=== PATIENT | female | born 1965 | race African-American/Black ===

== ENCOUNTER 2016-03-16 13:26 | Emergency (ER) | payer MEDICARE ==
[2016-03-16 13:52] VITALS: BP 139/77
[2016-03-16] MEDS ORDERED: HYDROCODONE/ACETAMINOPHEN 5-325 MG TABLET PO ONE (14:04)
--- NOTE | 2016-03-16 14:07 | ER Document Report ---
ED Medical Screen (RME) - General Chief Complaint: Fall Stated Complaint: FALL BODY PAIN Mode of Arrival: Ambulatory Information source: Patient Notes: 51-year-old female presents to the emergency department c/o right Knee Pain Status Post Mechanical Fall. Patient reports was stepping out of her Tub Yesterday Evening When She Slipped on the Rug and Fell. Denies loc, vision changes, or paresthesias. I have greeted and performed a rapid initial assessment of this patient. A comprehensive ED assessment and evaluation of the patient, analysis of test results and completion of the medical decision making process will be conducted by additional ED providers. TRAVEL OUTSIDE OF THE [place] IN LAST 30 DAYS: No - Related Data Allergies/Adverse Reactions: No Known Allergies Allergy (Verified 12/30/15 05:30) Past Medical History - Social History Frequency of alcohol use: None Drug Abuse: None - Past Medical History Cardiac Medical History: Reports: Hx Hypertension Pulmonary Medical History: Reports: Hx Asthma Neurological Medical History: Reports: Hx Migraine Renal/ Medical History: Denies: Hx Peritoneal Dialysis Musculoskeltal Medical History: Reports Hx Arthritis, Reports Hx Muscle Weakness , Reports Hx Musculoskeletal Deformity - ddd, Reports Hx Musculoskeletal Trauma Psychiatric Medical History: Reports: Hx Depression Past Surgical History: Reports: Hx Hysterectomy, Hx Oral Surgery, Hx Orthopedic Surgery - Back 2006, [place] Knee,3 neck surgeries - Immunizations Immunizations up to date: No Hx Diphtheria, Pertussis, Tetanus Vaccination: No - 1999 Physical Exam - Vital signs Vitals: Temp Pulse Resp BP Pulse Ox 98.6 F 107 H 22 H 139/77 H 98 03/16/16 13:51 03/16/16 13:51 03/16/16 13:51 03/16/16 13:51 03/16/16 13:51 - General General appearance: Appears well, Alert In distress: None Course - Vital Signs Vital signs: Temp Pulse Resp BP Pulse Ox 98.6 F 107 H 22 H 139/77 H 98 03/16/16 13:51 03/16/16 13:51 03/16/16 13:51 03/16/16 13:51 03/16/16 13:51
--- NOTE | 2016-03-16 15:33 | ER Document Report ---
ED Fall - General Chief Complaint: Fall Stated Complaint: FALL BODY PAIN Time seen by provider: 15:28 Mode of Arrival: Ambulatory Information source: Patient Notes: 51-year-old female presents to ED for pain in her right knee shoulder hand and back since she fell twice yesterday. She states she slipped down several stairs hurting her back and then when getting out of the tub she slipped and hit landed on her right arm and hand and knee. At this time she only complains of pain in her right shoulder and right knee. Denies pain in her back at this time. She has a history of back surgery bilateral knee surgery and 3 neck surgeries. TRAVEL OUTSIDE OF THE [place] IN LAST 30 DAYS: No - HPI Occurred: Yesterday Where: Home, Indoors Context: Slipped Associated symptoms: None Location of injury/pain: Knee - Right knee, Shoulder - Right shoulder Quality of pain: Sharp, Throbbing Severity: Moderate Pain Level: 4 - Related data Allergies/Adverse Reactions: No Known Allergies Allergy (Verified 12/30/15 05:30) Past Medical History - General Information source: Patient - Social History Smoking Status: Never Smoker Frequency of alcohol use: None Drug Abuse: None Occupation: disabled Lives with: Alone Family History: Arthritis, CAD, CVA, DM, Hyperlipidemia, Hypertension, Malignancy, Thyroid Disfunction Patient has suicidal ideation: No Patient has homicidal ideation: No - Past Medical History Cardiac Medical History: Reports: Hx Hypertension Pulmonary Medical History: Reports: Hx Asthma EENT Medical History: Reports: None Neurological Medical History: Reports: Hx Migraine Endocrine Medical History: Reports: Hx Hypothyroidism Renal/ Medical History: Reports: None Malignancy Medical History: Reports: None GI Medical History: Reports: None Musculoskeltal Medical History: Reports Hx Arthritis, Reports Hx Muscle Weakness , Reports Hx Musculoskeletal Deformity - ddd multiple back and neck surgeries, Reports Hx Musculoskeletal Trauma - Fractured bilateral clavicle as a child Skin Medical History: Reports None Psychiatric Medical History: Reports: Hx Depression Traumatic Medical History: Reports: Hx Fractures - Bilateral clavicle Infectious Medical History: Reports: None Past Surgical History: Reports: Hx Hysterectomy, Hx Oral Surgery - [place] teeth , Hx Orthopedic Surgery - Back 2006, [place] Knee,3 neck surgeries - Immunizations Immunizations up to date: No Hx Diphtheria, Pertussis, Tetanus Vaccination: No - 1999 Review of Systems - Review of Systems Constitutional: No symptoms reported EENT: No symptoms reported Cardiovascular: No symptoms reported Respiratory: No symptoms reported Gastrointestinal: No symptoms reported Genitourinary: No symptoms reported Female Genitourinary: No symptoms reported Musculoskeletal: Joint pain, Muscle pain, Other - Right shoulder and knee pain. denies: Back pain - States no longer has back pain Skin: No symptoms reported Hematologic/Lymphatic: No symptoms reported Neurological/Psychological: No symptoms reported -: Yes All other systems reviewed and negative Physical Exam - Vital signs Vitals: Temp Pulse Resp BP Pulse Ox 98.6 F 107 H 22 H 139/77 H 98 03/16/16 13:51 03/16/16 13:51 03/16/16 13:51 03/16/16 13:51 03/16/16 13:51 Interpretation: Normal - General General appearance: Appears well, Alert - HEENT Head: Normocephalic, Atraumatic Eyes: Normal Pupils: PERRL - Respiratory Respiratory status: No respiratory distress Chest status: Nontender Breath sounds: Normal Chest palpation: Normal - Cardiovascular Rhythm: Regular Heart sounds: Normal auscultation Murmur: No - Abdominal Inspection: Normal Distension: No distension Bowel sounds: Normal Tenderness: Nontender Organomegaly: No organomegaly - Back Back: Normal, Nontender, Scars. No: Tender, Deformity/step-off, CVA tenderness , Vertebra tenderness, Scoliosis, Wounds - Extremities General upper extremity: Normal inspection, Normal color, Normal temperature General lower extremity: Normal inspection, Normal color, Normal temperature, Normal weight bearing. No: Jesus's sign Shoulder: Tender, Limited ROM - Pain with range of motion but has full range of motion Arm: Normal, Nontender Elbow: Normal, Nontender Forearm: Normal, Nontender Wrist: Normal, Nontender Hand: Tender - No pain but does still have tenderness, No evidence of human bite , No evidence of FB. No: Deformity, Dislocation, Ecchymosis, Instability, Laceration, Nail injury, Swelling, Tendon deficit Hip: Normal, Nontender Thigh: Normal, Nontender Knee: Tender, Pain with ROM, Patellar tendon intact, Tender joint line. No: Abrasion, Deformity, Dislocation, Drawer's test instability, Ecchymosis, Instability, Laceration, Laxity with valgus stress, Laxity with varus stress, Popliteal fossa tender, Unable to bear weight - Pain with weightbearing Ankle: Normal, Nontender Foot: Normal, Nontender - Neurological Neuro grossly intact: Yes Cognition: Normal Orientation: AAOx4 [place] Coma Scale Eye Opening: Spontaneous Cookie Coma Scale Verbal: Oriented Cookie Coma Scale Motor: Obeys Commands Cookie Coma Scale Total: 15 Speech: Normal Motor strength normal: LUE, RUE, LLE, RLE Sensory: Normal - Psychological Associated symptoms: Normal affect, Normal mood - Skin Skin Temperature: Warm Skin Moisture: Dry Skin Color: Normal Course - Re-evaluation Re-evalutation: 03/16/16 15:36 Discussed x-rays with patient patient medicated with hydrocodone in the immobilizer applied to right knee and crutches instructions given. Patient will be discharged home with prescription for naproxen and instructed to follow- up with orthopedics. Patient does have a history of multiple surgeries to back neck and bilateral knees. - Vital Signs Vital signs: Temp Pulse Resp BP Pulse Ox 98.6 F 107 H 22 H 139/77 H 98 03/16/16 13:51 03/16/16 13:51 03/16/16 13:51 03/16/16 13:51 03/16/16 13:51 - Diagnostic Test Radiology reviewed: Image reviewed, Reports reviewed Discharge - Discharge Clinical Impression: Fall (on) (from) other stairs and steps, initial encounter Right shoulder pain Qualifiers: Chronicity: acute Qualified Code(s): M25.511 - Pain in right shoulder Right knee pain Qualifiers: Chronicity: acute Qualified Code(s): M25.561 - Pain in right knee Condition: Stable Disposition: HOME, SELF-CARE Instructions: Knee Exercise Program ([facility]), Stretching Exercises for the Back ( [facility]), Exercise Program for the Shoulder ([facility]), Family Physicians / Practices Additional Instructions: CONTUSION: Your injury has resulted in a contusion -- a crushing of the deep tissues. No injury to important structures was detected during the physician's exam. Contusions vary in the amount of pain they cause, and in the length of time required for healing. Typically, the area will become bruised, and will remain painful to touch for two or three weeks. However, most patients are back to working and playing within a few days. After the initial period of rest and cold-packs, your symptoms (together with the doctor's recommendations) will determine how rapidly you can get back to full activity. Usually this means "do what feels okay, but don't do things that hurt." If re-examination was recommended, it's important to follow up as instructed. Call the doctor or return any time if pain increases, if swelling becomes severe, if you develop numbness or weakness in an injured extremity, or if any other alarming symptoms occur. USE OF TYLENOL (ACETAMINOPHEN): Acetaminophen may be taken for pain relief or fever control. It's much safer than aspirin, offering a wider range of "safe" dosages. It is safe during . Some brand names are Tylenol, Panadol, Datril, Anacin 3, Tempra, and Liquiprin. Acetaminophen can be repeated every four hours. The following are maximum recommended dosages: WEIGHT Dose Drops Elixir Chewable( 80mg) (LBS.) drprs=droppers tsp=teaspoon 6 40 mg 0.4 ml (1/2) 6-11 80 mg 0.8 ml (full) tsp 1 tab 12-16 120 mg 1 1/2 drprs 3/4 tsp 1 1/2 tabs 17-23 160 mg 2 drprs 1 tsp 2 tabs 24-30 240 mg 3 drprs 1 1/2 tsp 3 tabs 30-35 320 mg 2 tsp 4 tabs 36-41 360 mg 2 1/4 tsp 4 1/2 tabs 42-47 400 mg 2 1/2 tsp 5 tabs 48-53 480 mg 3 tsp 6 tabs 54-59 520 mg 3 1/4 tsp 6 1/2 tabs 60-64 560 mg 3 1/2 tsp 7 tabs 65-70 600 mg 3 3/4 tsp 7 1/2 tabs 71-76 640 mg 4 tsp 8 tabs 77-82 720 mg 4 1/2 tsp 9 tabs 83-88 800 mg 5 tsp 10 tabs >89 pounds or adults 650 mg to 900 mg Acetaminophen can be repeated every four hours. Maximum dose not to exceed 4000 mg a day. These maximum recommended dosages are slightly higher than the dosages written on the product container, but these dosages are very safe and below the toxic dosage for acetaminophen. ICE PACKS: Apply ice packs frequently against the painful area. Many different schedules are recommended, such as "20 minutes on, 20 minutes off" or "one hour ice, two hours rest." If you need to work, you may need to go longer between ice treatments. You should plan to have the area ice packed AT LEAST one fourth of the time. The ice should be applied over the wrap, tape, or splint, or over a layer of cloth -- not directly against the skin. Some ice bags have a built-in cloth and can be put directly on the skin. WARM PACKS: After approximately two days, apply gentle heat (such as a heating pad or hot water bottle) for about 20 to 30 minutes about every two hours -- at least four times daily. Warmth and elevation will help you make a more rapid recovery , and will ease the pain considerably. Do not use HOT heat, and never apply heat for longer than 30 minutes. The continuous heat can invisibly damage skin and muscles -- even when no burn is seen on the surface. Damaged muscles can make you MORE sore. Chronic Pain Control Stress, inactivity, and depression make pain more severe regardless of the cause of the pain. Stress and poor physical condition can cause pain such as headaches and backache. Relaxation: Rest in a quiet place with your eyes closed for 20 minutes twice daily. Concentrate on a pleasant image, or simply "feel" your breathing. Clear your mind. Stress management: Deal with your "stressors." Either take action, or eliminate the stressor from your life. Don't let things hang over you. Accept those things you can't change. Nutrition: Eat small, balanced meals -- don't skip, don't overeat. Meals should be high-carbohydrate, low-sugar, low-fat. Exercise: Exercise helps painful conditions and eases stress. Get 30 minutes of moderate exercise, five days a week. Do an activity that does not flare your pain. Precautions: Pain which continues to disrupt daily activities, or which changes in nature, requires a medical evaluation. Pain Clinic referral is available. We do not manage chronic pain in the Emergency Department. We will try to appropriately help you through an acute flare of your chronic painful condition , but for on-going chronic pain that does not improve, you will need to see your private doctor or maintenance painter apprentice. We do not provide repeated medication management of chronic painful conditions. If you wish, we can provide the name of local pain management physicians. Anti-Inflammatory Medication You have received a prescription for an antiinflammatory agent. This is an excellent, safe drug for pain control. In addition, it has potent antiinflammatory effects which are beneficial, especially in the treatment of injuries, arthritis, or tendonitis. It's best to take this medicine with food. Persons with ulcer disease or allergy to aspirin should notify their physician of this before taking this drug. Take the medication exactly as prescribed. Don't take additional doses unless instructed to do so by your doctor. If you develop wheezing, shortness of breath, hives, faintness, stomach pain, vomiting, or dark black stools, return for re-evaluation at once. FOLLOW-UP CARE: If you have been referred to a physician for follow-up care, call the physician s office for an appointment as you were instructed or within the next two days. If you experience worsening or a significant change in your symptoms, notify the physician immediately or return to the Emergency Department at any time for re-evaluation. Prescriptions: Naproxen 500 mg PO BIDP PRN #20 tablet PRN Reason: For Pain Forms: Elevated Blood Pressure Referrals: ROSS ZEE MD [ACTIVE STAFF] - Follow up as needed
== END 2016-03-16 16:15 | disposition home or self-care (01) ==
LOC: ER 13:26
DX: M25.561 Pain in right knee (principal); M25.511 Pain in right shoulder; M54.9 Dorsalgia, unspecified; W10.9XXA Fall (on) (from) unspecified stairs and steps, initial encounter; Y92.009 Unspecified place in unspecified non-institutional (private) residence as the place of occurrence of the external cause; I10 Essential (primary) hypertension; J45.909 Unspecified asthma, uncomplicated; Z87.81 Personal history of (healed) traumatic fracture; Z98.890 Other specified postprocedural states
CPT/HCPCS: 99283; 73562; L1830; A9270

== ENCOUNTER 2016-03-27 08:39 | Emergency (ER) | payer MEDICARE ==
--- NOTE | 2016-03-27 09:21 | ER Document Report ---
HPI - HPI Pain Level: 4 - REPRODUCTIVE Reproductive: DENIES: : - DERM Skin Color: Normal Past Medical History - Social History Smoking Status: Never Smoker Chew tobacco use (# tins/day): No Frequency of alcohol use: None Drug Abuse: None Family History: Arthritis, CAD, CVA, DM, Hyperlipidemia, Hypertension, Malignancy, Thyroid Disfunction Patient has suicidal ideation: No Patient has homicidal ideation: No - Past Medical History Cardiac Medical History: Reports: Hx Hypertension Pulmonary Medical History: Reports: Hx Asthma Neurological Medical History: Reports: Hx Migraine Endocrine Medical History: Reports: Hx Hypothyroidism Renal/ Medical History: Denies: Hx Peritoneal Dialysis Musculoskeltal Medical History: Reports Hx Arthritis, Reports Hx Muscle Weakness , Reports Hx Musculoskeletal Deformity - ddd multiple back and neck surgeries, Reports Hx Musculoskeletal Trauma - Fractured bilateral clavicle as a child Psychiatric Medical History: Reports: Hx Depression Traumatic Medical History: Reports: Hx Fractures - Bilateral clavicle Past Surgical History: Reports: Hx Hysterectomy, Hx Oral Surgery - [place] teeth , Hx Orthopedic Surgery - Back 2006, [place] Knee,3 neck surgeries - Immunizations Immunizations up to date: No Hx Diphtheria, Pertussis, Tetanus Vaccination: No - 1999 Vertical Provider Document - INFECTION CONTROL TRAVEL OUTSIDE OF THE [place] IN LAST 30 DAYS: No
--- NOTE | 2016-03-27 09:30 | ER Document Report ---
HPI - HPI Patient complains to provider of: right knee pain Onset: Other Onset/Duration: Persistent Quality of pain: Achy Severity: Severe Pain Level: 4 Context: Patient presents to the emergency department with complaints of right knee pain. She reports she fell in the shower last week and was evaluated here. An x-ray was done, negative. Patient was placed in a knee immobilizer placed on crutches, pain medication and instructed to follow-up. Patient has not followed up with a provider for her knee pain. Patient reports the knee is still hurting. No further injury. Associated Symptoms: None Exacerbated by: Movement, Walking Relieved by: Denies Similar symptoms previously: Yes Recently seen / treated by doctor: Yes - URINARY Urinary: DENIES: Dysuria, Urgency, Frequency - REPRODUCTIVE Reproductive: REPORTS: : - MUSCULOSKELETAL Musculoskeletal: REPORTS: Extremity pain. DENIES: Swelling - DERM Skin Color: Normal, [place] - NURSING COMMENTS Comment: PT C/O R KNEE PAIN. STATES FELL OUT OF SHOWER AND WAS SEEN HERE, STATES PAIN WORSE NOW AND SHE NEEDS PAIN MEDICATION. CRUTCHES AND KNEE IMMOBILIZER NOTED AT BEDSIDE. NO WARMTH, REDNESS, BRUISE, OR SWELLING NOTED COMPARED TO L. PT DESCRIBES PAIN 'SHARP, DULL, ACHE'. ON CELLPHONE, NAD. Past Medical History - General Information source: Patient - Social History Smoking Status: Unknown if Ever Smoked Chew tobacco use (# tins/day): No Frequency of alcohol use: None Drug Abuse: None Family History: Arthritis, CAD, CVA, DM, Hyperlipidemia, Hypertension, Malignancy, Thyroid Disfunction Patient has suicidal ideation: No Patient has homicidal ideation: No - Past Medical History Cardiac Medical History: Reports: Hx Hypertension Pulmonary Medical History: Reports: Hx Asthma Neurological Medical History: Reports: Hx Migraine Endocrine Medical History: Reports: Hx Hypothyroidism Renal/ Medical History: Denies: Hx Peritoneal Dialysis Musculoskeltal Medical History: Reports Hx Arthritis, Reports Hx Muscle Weakness , Reports Hx Musculoskeletal Deformity - ddd multiple back and neck surgeries, Reports Hx Musculoskeletal Trauma - Fractured bilateral clavicle as a child Psychiatric Medical History: Reports: Hx Depression Traumatic Medical History: Reports: Hx Fractures - Bilateral clavicle Past Surgical History: Reports: Hx Hysterectomy, Hx Oral Surgery - [place] teeth , Hx Orthopedic Surgery - Back 2006, BL Knee ARTHROSCOPIC,3 neck surgeries - Immunizations Immunizations up to date: No Hx Diphtheria, Pertussis, Tetanus Vaccination: No - 1999 Vertical Provider Document - CONSTITUTIONAL Agree With Documented VS: Yes Exam Limitations: No Limitations General Appearance: WD/WN, No Apparent Distress - INFECTION CONTROL TRAVEL OUTSIDE OF THE [place] IN LAST 30 DAYS: No - HEENT HEENT: Atraumatic, Normocephalic - NECK Neck: Normal Inspection, Supple. negative: Lymphadenopathy-Left, Lymphadenopathy-Right - RESPIRATORY Respiratory: No Respiratory Distress O2 Sat by Pulse Oximetry: 96 - MUSCULOSKELETAL/EXTREMETIES Musculoskeletal/Extremeties: MAEW, FROM, Tender - Complaints of right knee tenderness and no obvious deformity no swelling no erythema no warmth - NEURO Level of Consciousness: Awake, Alert, Appropriate Motor/Sensory: No Motor Deficit - DERM Integumentary: Warm, Dry Adult Front & Back Diagram: 1 - Complains of pain Course - Re-evaluation Re-evalutation: 03/27/16 09:29 piano case and bench assembler consulted for patient, fu with ortho 03/27/16 branch rental manager consult patient and obtained follow-up visit for fell. Patient was instructed to continue using crutches knee immobilizer and naproxen for pain. She verbalized understanding. - Vital Signs Vital signs: Temp Pulse Resp BP Pulse Ox 98.1 F 110 H 20 139/78 H 96 03/27/16 09:25 03/27/16 09:25 03/27/16 09:25 03/27/16 09:25 03/27/16 09:25 - Diagnostic Test Radiology reviewed: Reports reviewed Discharge - Discharge Clinical Impression: Elevated blood pressure reading Right knee pain Qualifiers: Chronicity: unspecified Qualified Code(s): M25.561 - Pain in right knee Condition: Stable Disposition: HOME, SELF-CARE Instructions: Use of Crutches ([facility]), Ice & Elevation ([facility]), Knee Immobilizing Splint ([facility]) Additional Instructions: *You have been evaluated for right knee pain Blood pressure *Maintain the splint and use your crutches *Rest/Ice/Elevate the knee *Follow up with orthopedics or a primary care provider- Bertrand will schedule the visit for you *Take your medication as prescribed for pain *Return to ED for worsening condition, changes, needs Forms: Elevated Blood Pressure
[2016-03-27 09:53] VITALS: BP 129/73
== END 2016-03-27 09:51 | disposition home or self-care (01) ==
LOC: ER 08:39
DX: M25.561 Pain in right knee (principal); W18.2XXD Fall in (into) shower or empty bathtub, subsequent encounter; I10 Essential (primary) hypertension; J45.909 Unspecified asthma, uncomplicated; Z98.890 Other specified postprocedural states
CPT/HCPCS: 99283

== ENCOUNTER 2016-04-05 13:45 | Emergency (ER) | payer MEDICARE ==
[2016-04-05 14:06] VITALS: BP 141/78
--- NOTE | 2016-04-05 14:09 | ER Document Report ---
ED Medical Screen (RME) - General Stated Complaint: RIGHT KNEE PAIN Time seen by provider: 14:07 Mode of Arrival: Wheelchair Information source: Patient Notes: 51-year-old female complaining of persistent right knee pain. She fell 3 weeks ago and it has been hurting ever since. She has an elastic pharmacy knee brace. She's been unable to get in to see her medical provider because he has been full. Her PCP is oscar LALA. Lives here now. TRAVEL OUTSIDE OF THE [place] IN LAST 30 DAYS: No - Related Data Allergies/Adverse Reactions: No Known Allergies Allergy (Verified 03/27/16 08:54) Past Medical History - Past Medical History Cardiac Medical History: Reports: Hx Hypertension Pulmonary Medical History: Reports: Hx Asthma Neurological Medical History: Reports: Hx Migraine Endocrine Medical History: Reports: Hx Hypothyroidism Renal/ Medical History: Denies: Hx Peritoneal Dialysis Musculoskeltal Medical History: Reports Hx Arthritis, Reports Hx Muscle Weakness , Reports Hx Musculoskeletal Deformity - ddd multiple back and neck surgeries, Reports Hx Musculoskeletal Trauma - Fractured bilateral clavicle as a child Psychiatric Medical History: Reports: Hx Depression Traumatic Medical History: Reports: Hx Fractures - Bilateral clavicle Past Surgical History: Reports: Hx Hysterectomy, Hx Oral Surgery - [place] teeth , Hx Orthopedic Surgery - Back 2006, [place] Knee ARTHROSCOPIC,3 neck surgeries - Immunizations Immunizations up to date: No Hx Diphtheria, Pertussis, Tetanus Vaccination: No - 1999 Physical Exam - Vital signs Vitals: Temp Pulse Resp BP Pulse Ox 98.0 F 98 20 141/78 H 97 04/05/16 14:04 04/05/16 14:04 04/05/16 14:04 04/05/16 14:04 04/05/16 14:04 Course - Vital Signs Vital signs: Temp Pulse Resp BP Pulse Ox 98.0 F 98 20 141/78 H 97 04/05/16 14:04 04/05/16 14:04 04/05/16 14:04 04/05/16 14:04 04/05/16 14:04
--- NOTE | 2016-04-05 14:48 | ER Document Report ---
ED Extremity Problem, Lower - General Chief Complaint: Knee Pain Stated Complaint: RIGHT KNEE PAIN Time seen by provider: 14:47 Mode of Arrival: Wheelchair Information source: Patient TRAVEL OUTSIDE OF THE [place] IN LAST 30 DAYS: No - HPI Location: Knee - pt fell several weeks ago with injury to R knee (has been surgically repaired ikn the past) -- was seen here with neg X-rays. States same knee has continued to give her pain despite no new injury. Has not f/u'd with ortho - Related Data Allergies/Adverse Reactions: No Known Allergies Allergy (Verified 03/27/16 08:54) Past Medical History - General Information source: Patient - Social History Smoking Status: Never Smoker Cigarette use (# per day): No Chew tobacco use (# tins/day): No Smoking Education Provided: No Family History: Arthritis, CAD, CVA, DM, Hyperlipidemia, Hypertension, Malignancy, Thyroid Disfunction - Past Medical History Cardiac Medical History: Reports: Hx Hypertension Pulmonary Medical History: Reports: Hx Asthma Neurological Medical History: Reports: Hx Migraine Endocrine Medical History: Reports: Hx Hypothyroidism Renal/ Medical History: Denies: Hx Peritoneal Dialysis Musculoskeltal Medical History: Reports Hx Arthritis, Reports Hx Muscle Weakness , Reports Hx Musculoskeletal Deformity - ddd multiple back and neck surgeries, Reports Hx Musculoskeletal Trauma - Fractured bilateral clavicle as a child Psychiatric Medical History: Reports: Hx Depression Traumatic Medical History: Reports: Hx Fractures - Bilateral clavicle Past Surgical History: Reports: Hx Hysterectomy, Hx Oral Surgery - [place] teeth , Hx Orthopedic Surgery - Back 2006, BL Knee ARTHROSCOPIC,3 neck surgeries - Immunizations Immunizations up to date: No Hx Diphtheria, Pertussis, Tetanus Vaccination: No - 1999 Review of Systems - Review of Systems Constitutional: No symptoms reported EENT: No symptoms reported Cardiovascular: No symptoms reported Respiratory: No symptoms reported Musculoskeletal: See HPI, Joint pain -: Yes All other systems reviewed and negative Physical Exam - Vital signs Vitals: Temp Pulse Resp BP Pulse Ox 98.0 F 98 20 141/78 H 97 04/05/16 14:04 04/05/16 14:04 04/05/16 14:04 04/05/16 14:04 04/05/16 14:04 - General General appearance: Appears well In distress: None - pt is morbidly obese - Extremities Knee: Tender - There is min-mod TTP along the lateral joint line diffusely without erythema or effusion. Neg valgus or varus laxity. Neg ant. or posterior drawer sign. FROM the knee Course - Vital Signs Vital signs: Temp Pulse Resp BP Pulse Ox 98.0 F 98 20 141/78 H 97 04/05/16 14:06 04/05/16 14:06 04/05/16 14:06 04/05/16 14:06 04/05/16 14:06 Discharge - Discharge Clinical Impression: Knee pain, right Qualifiers: Chronicity: chronic Qualified Code(s): M25.561 - Pain in right knee Condition: Stable Disposition: HOME, SELF-CARE Instructions: Use of Crutches ([facility]), Ice & Elevation ([facility]), Suspected Internal Knee Injury ([facility]), Sprained Knee ([facility]) Additional Instructions: rest, take meds as prescribed, return if worse Prescriptions: Etodolac [Lodine] 400 mg PO BID #14 tablet Referrals: JESSIE GTZ MD [ACTIVE STAFF] - Follow up as needed
== END 2016-04-05 15:04 | disposition home or self-care (01) ==
LOC: ER 13:45
DX: M25.561 Pain in right knee (principal)
CPT/HCPCS: 99283

== ENCOUNTER 2016-06-15 01:13 | Emergency (ER) | payer MEDICARE ==
[2016-06-15] MEDS ORDERED: KETOROLAC TROMETHAMINE 60 MG/2 ML SDV IM ONE (02:28)
--- NOTE | 2016-06-15 03:17 | ER Document Report ---
HPI - HPI Patient complains to provider of: low back pain Onset: Yesterday Onset/Duration: Persistent Quality of pain: Achy Pain Level: 4 Context: Patient states she is a history of chronic low back pain for which she takes tramadol and some at home. To treat. Patient complains of a flare up of her low back pain that radiates to bilateral lower extremities. Patient states she' s had this radiculopathy similar to this in the past. Patient denies any fever , urinary symptoms or any IV drug use. Patient states she took her tramadol around 10 PM without any improvement of her pain symptoms. Patient has not taken her muscle relaxer. Associated Symptoms: Other - Low back pain. denies: Chest pain, Nonproductive cough, Productive cough Exacerbated by: Movement Relieved by: Denies Similar symptoms previously: Yes Recently seen / treated by doctor: No - ROS ROS below otherwise negative: Yes Systems Reviewed and Negative: Yes All other systems reviewed and negative - CONSTITUTIONAL Constitutional: DENIES: Fever - NEURO Neurology: DENIES: Headache, Weakness - CARDIOVASCULAR Cardiovascular: DENIES: Chest pain - RESPIRATORY Respiratory: DENIES: Trouble Breathing, Coughing - GASTROINTESTINAL Gastrointestinal: DENIES: Abdominal Pain, Patient vomiting - URINARY Urinary: DENIES: Dysuria Notes: No retention or incontinence - REPRODUCTIVE LMP: na - MUSCULOSKELETAL Musculoskeletal: REPORTS: Extremity pain, Back Pain. DENIES: Neck Pain - DERM Skin Color: Normal Skin Problems: None Past Medical History - General Information source: Patient - Social History Smoking Status: Never Smoker Frequency of alcohol use: None Drug Abuse: None Lives with: Family Family History: Arthritis, CAD, CVA, DM, Hyperlipidemia, Hypertension, Malignancy, Thyroid Disfunction Patient has suicidal ideation: No Patient has homicidal ideation: No - Past Medical History Cardiac Medical History: Reports: Hx Hypertension Pulmonary Medical History: Reports: Hx Asthma Neurological Medical History: Reports: Hx Migraine Endocrine Medical History: Reports: Hx Hypothyroidism Renal/ Medical History: Denies: Hx Peritoneal Dialysis Musculoskeltal Medical History: Reports Hx Arthritis, Reports Hx Muscle Weakness , Reports Hx Musculoskeletal Deformity - ddd multiple back and neck surgeries, Reports Hx Musculoskeletal Trauma - Fractured bilateral clavicle as a child, Reports Other Psychiatric Medical History: Reports: Hx Depression Traumatic Medical History: Reports: Hx Fractures - Bilateral clavicle Past Surgical History: Reports: Hx Hysterectomy, Hx Oral Surgery - [place] teeth , Hx Orthopedic Surgery - Back 2006, BL Knee ARTHROSCOPIC,3 neck surgeries - Immunizations Immunizations up to date: No Hx Diphtheria, Pertussis, Tetanus Vaccination: No - 2000 Vertical Provider Document - CONSTITUTIONAL Agree With Documented VS: Yes Exam Limitations: No Limitations General Appearance: WD/WN, No Apparent Distress Notes: PHYSICAL EXAMINATION: GENERAL: Well-appearing, well-nourished and in no acute distress. HEAD: Atraumatic, normocephalic. EYES: sclera clear, anicteric, conjunctiva are normal. ENT: nares patent, Moist mucous membranes. NECK: Normal range of motion, supple no lymphadenopathy LUNGS: respirations unlabored HEART: Regular rate and rhythm without murmurs EXTREMITIES: Normal range of motion, no pitting or edema. No cyanosis. Gait normal, pt ambulates without difficulty BACK: Lower lumbar midline tenderness, no deformities or step-offs. No CVA tenderness. NEUROLOGICAL: Cranial nerves grossly intact. Normal speech, normal gait. No saddle anesthesia. No foot drop PSYCH: Normal mood, normal affect. SKIN: Warm, Dry, normal turgor, no rashes or lesions noted. - INFECTION CONTROL TRAVEL OUTSIDE OF THE [place] IN LAST 30 DAYS: No - RESPIRATORY O2 Sat by Pulse Oximetry: 96 Course - Re-evaluation Re-evalutation: 06/15/16 03:15 Patient drove herself here and does not have anyone who can drive her home. Patient also has pain medication as well as muscle relaxants at home. Patient advised that we can give herself here for her back pain but she would need a ride home. Patient does not have a ride. The patient presents with low back pain without signs of spinal cord compression, cauda equina syndrome, infection , aneurysm, or other serious etiology. The patient is neurologically intact. Given the extremely risk of these diagnoses further testing and evaluation for these possibilities does not appear to be indicated at this time. Patient has been instructed to return if the symptoms worsen or change in any way. - Vital Signs Vital signs: Temp Pulse Resp BP Pulse Ox 98.6 F 108 H 16 137/74 H 96 06/15/16 02:26 06/15/16 02:26 06/15/16 02:26 06/15/16 02:26 06/15/16 02:26 Discharge - Discharge Clinical Impression: Chronic low back pain Qualifiers: Back pain laterality: unspecified Sciatica presence: with sciatica Sciatica laterality: sciatica laterality unspecified Qualified Code(s): M54.40 - Lumbago with sciatica, unspecified side Condition: Stable Disposition: HOME, SELF-CARE Instructions: Ice Packs ([facility]), Low Back Pain ([facility]), Toradol Injection ([facility]) Additional Instructions: Return immediately for any new or worsening symptoms Followup with your primary care provider, call tomorrow to make a followup appointment Take your pain medication and your muscle relaxers that you have at home as prescribed Referrals: [facility] [Provider Group] - Follow up as needed
[2016-06-15 03:42] VITALS: BP 135/94
== END 2016-06-15 03:42 | disposition home or self-care (01) ==
LOC: ER 01:13
DX: G89.29 Other chronic pain (principal); M54.40 Lumbago with sciatica, unspecified side; Z79.891 Long term (current) use of opiate analgesic; I10 Essential (primary) hypertension; J45.909 Unspecified asthma, uncomplicated; Z98.890 Other specified postprocedural states
CPT/HCPCS: 99283; 96372; J1885

== ENCOUNTER 2016-07-21 03:05 | Emergency (ER) | payer MEDICARE, OTHER ==
[2016-07-21] MEDS ORDERED: ONDANSETRON 4 MG TAB.RAPDIS PO ONE (03:27)
[2016-07-21] MEDS ORDERED: METOCLOPRAMIDE HCL ORAL SOLN 10 MG/10 ML UDCUP PO ONE (03:33)
[2016-07-21] MEDS ORDERED: MAG HYDROX/AL HYDROX/SIMETH SUSP 30 ML UDCUP PO ONE (03:33)
[2016-07-21] MEDS ORDERED: LIDOCAINE 2% VISCOUS SOLN 20 ML UDCUP PO ONE (03:33)
[2016-07-21] MEDS ORDERED: FAMOTIDINE 20 MG TABLET PO ONE (03:33)
--- NOTE | 2016-07-21 03:38 | ER Document Report ---
ED General - General Chief Complaint: Abdominal Pain Stated Complaint: NAUSEA/ABDOMINAL PAIN Time Seen by Provider: 07/21/16 03:26 Notes: Patient is a 51-year-old female without past medical history who presents with 2 weeks of epigastric abdominal pain, nausea and vomiting. Denies history of similar symptoms in the past. No prior abdominal surgeries. She does continue to have bowel movements although she notes they are infrequent. Continues to pass flatus. Describes the pain in her epigastrium is a constant burning, aching pain. Eating worsens her discomfort. Nothing improves her pain although she admits she has not tried anything to improve her pain. She has not seen her primary care doctor regarding today's concerns. Denies any hematemesis, chest pain, shortness of breath, syncope. TRAVEL OUTSIDE OF THE [place] IN LAST 30 DAYS: No - Related Data Allergies/Adverse Reactions: No Known Allergies Allergy (Verified 07/21/16 03:08) Past Medical History - General Information source: Patient - Social History Smoking Status: Never Smoker Frequency of alcohol use: None Drug Abuse: None Lives with: Spouse/Significant other Family History: Arthritis, CAD, CVA, DM, Hyperlipidemia, Hypertension, Malignancy, Thyroid Disfunction - Past Medical History Cardiac Medical History: Reports: Hx Hypertension Pulmonary Medical History: Reports: Hx Asthma Neurological Medical History: Reports: Hx Migraine Endocrine Medical History: Reports: Hx Hypothyroidism Renal/ Medical History: Denies: Hx Peritoneal Dialysis Musculoskeltal Medical History: Reports Hx Arthritis, Reports Hx Muscle Weakness , Reports Hx Musculoskeletal Deformity - ddd multiple back and neck surgeries, Reports Hx Musculoskeletal Trauma - Fractured bilateral clavicle as a child Psychiatric Medical History: Reports: Hx Depression Traumatic Medical History: Reports: Hx Fractures - Bilateral clavicle Past Surgical History: Reports: Hx Hysterectomy, Hx Oral Surgery - [place] teeth , Hx Orthopedic Surgery - Back 2006, BL Knee ARTHROSCOPIC,3 neck surgeries - Immunizations Immunizations up to date: No Hx Diphtheria, Pertussis, Tetanus Vaccination: No - 1999 Review of Systems - Review of Systems Notes: Constitutional: Negative for fever. HENT: Negative for sore throat. Eyes: Negative for visual changes. Cardiovascular: Negative for chest pain. Respiratory: Negative for shortness of breath. Gastrointestinal: Positive for abdominal pain and nausea Genitourinary: Negative for dysuria. Musculoskeletal: Negative for back pain. Skin: Negative for rash. Neurological: Negative for headaches, weakness or numbness. 10 point ROS negative except as marked above and in HPI. Physical Exam - Vital signs Vitals: Temp Pulse Resp BP Pulse Ox 98.3 F 108 H 16 147/90 H 97 07/21/16 03:12 07/21/16 03:12 07/21/16 03:12 07/21/16 03:12 07/21/16 03:12 Interpretation: Tachycardic Notes: PHYSICAL EXAMINATION: GENERAL: Well-appearing, well-nourished and in no acute distress. HEAD: Atraumatic, normocephalic. EYES: Pupils equal round and reactive to light, extraocular movements intact, sclera anicteric, conjunctiva are normal. ENT: nares patent, oropharynx clear without exudates. Moist mucous membranes. NECK: Normal range of motion, supple without lymphadenopathy LUNGS: Breath sounds clear to auscultation bilaterally and equal. No wheezes rales or rhonchi. HEART: Regular rate and rhythm without murmurs ABDOMEN: Soft, epigastric abdominal discomfort on deep palpation otherwise no focal tenderness, normoactive bowel sounds. No guarding, no rebound. No masses appreciated. EXTREMITIES: Normal range of motion, no pitting or edema. No cyanosis. NEUROLOGICAL: No focal neurological deficits. Moves all extremities spontaneously and on command. PSYCH: Normal mood, normal affect. SKIN: Warm, Dry, normal turgor, no rashes or lesions noted. Course - Re-evaluation Re-evalutation: 07/21/16 03:38 Patient presents with epigastric abdominal pain with associated reflux symptoms most consistent with likely gastritis. Patient has no focal abdominal tenderness on examination. Right upper quadrant ultrasound does not demonstrate any evidence of acute cholecystitis or cholelithiasis. Lipase is normal. No LFT changes. Based on history and exam, I do not suspect ACS, pulmonary embolus, SBO, mesenteric ischemia, acute pancreatitis, biliary pathology, or an abdominal aortic dissection. Patient has had improvement of symptoms here with a GI cocktail. At this time will discharge with return precautions and follow-up recommendations. Verbal discharge instructions given a the bedside and opportunity for questions given. Medication warnings reviewed. Patient is in agreement with this plan and has verbalized understanding of return precautions and the need for primary care follow-up in the next 24-72 hours. - Vital Signs Vital signs: Temp Pulse Resp BP Pulse Ox 98.3 F 108 H 16 147/90 H 97 07/21/16 03:12 07/21/16 03:12 07/21/16 03:12 07/21/16 03:12 07/21/16 03:12 - Laboratory Result Diagrams: 07/21/16 03:58 07/21/16 03:58 Laboratory results interpreted by me: 07/21/16 03:58 BUN 5 L Glucose 112 H Calcium 10.3 H Discharge - Discharge Clinical Impression: Epigastric abdominal pain Condition: Good Disposition: HOME, SELF-CARE Additional Instructions: Your symptoms appear to be most consistent with stomach or upper intestinal irritation. Your evaluation here today has not demonstrated an alternative cause for your symptoms. Please begin taking famotidine 40 mg in the morning and 40 mg at night. This medicine can be purchased directly [id number]. You may also take medicine such as Pepto-Bismol or Tums to assist with your pain. Please follow closely with your primary care doctor in the next 24-48 hours regarding today's emergency department visit. Please return immediately if you develop persistent vomiting, worsening pain, again having bloody bowel movements, develop a fever greater than 100.4F, or have any other symptoms that are worrisome to you.
[2016-07-21 04:18] LABS: ABSOLUTE BASOPHILS # (AUTO) 0.1 10^3/uL (0.0-0.2); ABSOLUTE EOSINOPHILS # (AUTO) 0.3 10^3/uL (0.0-0.6); ABSOLUTE LYMPHOCYTES (AUTO) 2.9 10^3/uL (0.5-4.7); ABSOLUTE MONOCYTES (AUTO) 0.8 10^3/uL (0.1-1.4); ABSOLUTE NEUT (AUTO) 4.7 10^3/uL (1.7-8.2); BASOPHILS % (AUTO) 0.9 % (0-2); EOSINOPHILS % (AUTO) 3.2 % (0-6); HEMATOCRIT 37.2 % (36.0-47.0); HGB HCT DIFFERENCE -1.2; MEAN CORPUSCULAR HEMOGLOBIN 28.8 pg (27.0-33.4); MEAN CORPUSCULAR HGB CONC 32.2 g/dL (32.0-36.0); MEAN CORPUSCULAR VOLUME 90 fl (80-97); RED BLOOD COUNT 4.16 10^6/uL (3.72-5.28); RED CELL DISTRIBUTION WIDTH 13.7 % (11.5-14.0); SEGMENTED NEUTROPHILS % (AUTO) 53.9 % (42-78); WHITE BLOOD COUNT 8.8 10^3/uL (4.0-10.5)
[2016-07-21 04:30] LABS: ALANINE AMINOTRANSFERASE 33 U/L (9-52); ALBUMIN 4.7 g/dL (3.5-5.0); ALKALINE PHOSPHATASE 104 U/L (38-126); ANION GAP 13 (5-19); ASPARTATE AMINO TRANSFERASE 22 U/L (14-36); BILIRUBIN,DIRECT 0.3 mg/dL (0.0-0.4); BILIRUBIN,TOTAL 0.7 mg/dL (0.2-1.3); BLOOD UREA NITROGEN 5 mg/dL (7-20); CALCIUM 10.3 mg/dL (8.4-10.2); CARBON DIOXIDE 27 mmol/L (22-30); CHLORIDE 104 mmol/L (98-107); CREATININE RESULT 0.86 mg/dL (0.52-1.25); GLUCOSE 112 mg/dL (75-110); LIPASE 30.3 U/L (23-300); POTASSIUM 3.9 mmol/L (3.6-5.0); SODIUM 144.4 mmol/L (137-145); TOTAL PROTEIN 8.1 g/dL (6.3-8.2)
--- NOTE | 2016-07-21 04:37 | RADIOLOGY REPORT (SQ) ---
EXAM DESCRIPTION: U/S ABDOMEN LIMITED W/O DOP COMPLETED DATE/TIME: 07/21/2016 4:25 am REASON FOR STUDY: ruq, epigastric pain COMPARISON: None. TECHNIQUE: Dynamic and static grayscale images acquired of the abdomen and recorded on PACS. Additio nal selected color Doppler and spectral images recorded. LIMITATIONS: None. FINDINGS: PANCREAS: No masses. Visualized pancreatic duct normal caliber. LIVER: No masses. Echotexture normal. LIVER VASCULATURE: Normal directional flow of the main portal vein and hepatic veins. GALLBLADDER: No stones. Normal wall thickness. No pericholecystic fluid. ULTRASOUND-DETECTED CRUZ'S SIGN: Negative. INTRAHEPATIC DUCTS AND COMMON DUCT: 0.7 cm diameter CBD and intrahepatic ducts normal caliber. No kaya ling defects. INFERIOR VENA CAVA: Normal flow. AORTA: No aneurysm. RIGHT KIDNEY: Normal size. Normal echogenicity. No solid or suspicious masses. No hydronephrosis. No calcifications. PERITONEAL AND RIGHT PLEURAL SPACE: No ascites or effusions. OTHER: No other significant findings. IMPRESSION: 0.7 cm mildly dilated common bile duct. Otherwise unremarkable abdominal sonogram. TECHNICAL DOCUMENTATION: JOB ID: [id number] [employer]- All Rights Reserved
[2016-07-21 05:46] VITALS: BP 138/87
== END 2016-07-21 05:40 | disposition home or self-care (01) ==
LOC: ER 03:05
DX: R10.13 Epigastric pain (principal); R11.2 Nausea with vomiting, unspecified
CPT/HCPCS: 99284; 36415; 83690; 85025; 80053; 84484; 76705; A9270 ×3; J3490; S0119

== ENCOUNTER 2017-02-05 01:20 | Emergency (ER) | payer MEDICARE, OTHER ==
[2017-02-05] MEDS ORDERED: KETOROLAC TROMETHAMINE INJ/PF 30 MG/1 ML SDV IM ONE (02:06)
--- NOTE | 2017-02-05 02:12 | ER Document Report ---
ED General - General Chief Complaint: Low Back Pain Stated Complaint: LOWER BACK Time Seen by Provider: 02/05/17 01:59 Notes: Patient is 52-year-old female presents with complaint of right-sided lower back pain. She does have history of low back surgery as well as degenerative disc disease. She says for the last 3 weeks she has had pain in her right lower back she has been taking Tylenol but she still sweating. No radiation of pain or numbness into her legs. The pain is worse with movements. No dysuria. No abdominal pain. No chest pain or shortness of breath. No fevers. No other complaints at this time. No history of kidney disease. No loss of bowel control. No urinary retention. TRAVEL OUTSIDE OF THE [place] IN LAST 30 DAYS: No - Related Data Allergies/Adverse Reactions: No Known Allergies Allergy (Verified 02/05/17 01:43) Past Medical History - Social History Smoking Status: Never Smoker Frequency of alcohol use: None Drug Abuse: None Family History: Arthritis, CAD, CVA, DM, Hyperlipidemia, Hypertension, Malignancy, Thyroid Disfunction - Past Medical History Cardiac Medical History: Reports: Hx Hypertension Pulmonary Medical History: Reports: Hx Asthma Neurological Medical History: Reports: Hx Migraine Endocrine Medical History: Reports: Hx Hypothyroidism Renal/ Medical History: Denies: Hx Peritoneal Dialysis Musculoskeltal Medical History: Reports Hx Arthritis, Reports Hx Muscle Weakness , Reports Hx Musculoskeletal Deformity - ddd multiple back and neck surgeries, Reports Hx Musculoskeletal Trauma - Fractured bilateral clavicle as a child Psychiatric Medical History: Reports: Hx Depression Traumatic Medical History: Reports: Hx Fractures - Bilateral clavicle Past Surgical History: Reports: Hx Hysterectomy, Hx Oral Surgery - [place] teeth , Hx Orthopedic Surgery - Back 2006, BL Knee ARTHROSCOPIC,3 neck surgeries - Immunizations Immunizations up to date: No Hx Diphtheria, Pertussis, Tetanus Vaccination: No - 1999 Review of Systems - Review of Systems Notes: My Normal Review Basic REVIEW OF SYSTEMS: CONSTITUTIONAL : Denies fever, chills, or sweats. Denies recent illness.ezing. GASTROINTESTINAL: Denies abdominal pain. Denies nausea, vomiting, or diarrhea. GENITOURINARY: Denies difficulty urinating, painful urination, burning, frequency, or blood in urine. FEMALE GENITOURINARY: Denies vaginal bleeding, abnormal or irregular periods. MUSCULOSKELETAL: Right-sided low back pain SKIN: Denies rash or skin lesions. NEUROLOGICAL: Denies sensory or motor loss. ALL OTHER SYSTEMS REVIEWED AND NEGATIVE. Physical Exam - Vital signs Vitals: Temp Pulse Resp BP Pulse Ox 99.0 F 125 H 16 142/78 H 97 02/05/17 01:29 02/05/17 01:29 02/05/17 01:29 02/05/17 01:29 02/05/17 01:29 - Notes Notes: General Appearance: Well nourished, alert, cooperative, no acute distress, moderate obvious discomfort. Vitals: reviewed, See vital signs table. Head: no swelling or tenderness to the head Eyes: PERRL, EOMI, Conjuctiva clear Mouth: No decreasd moisture Neck: Supple, no neck tenderness Lungs: No wheezing, No rales, No rhonci, No accessory muscle use, good air exchange bilaterally. Heart: Normal rate, Regular rythm, No murmur, no rub Abdomen: Normal BS, soft, No rigidity, very mild right-sided abdominal tenderness palpation, No guarding, no rebound, Back: Easily reproducible pain palpation of the right lumbar paraspinal musculature. No midline or left-sided lumbar tenderness. No edness or swelling of the skin. Extremities: strength 5/5 in all extremities, good pulses in all extremities, no swelling or tenderness in the extremities, no edema. Skin: warm, dry, appropriate color, no rash Neuro: speech clear, oriented x 3, normal affect, responds appropriately to questions. She has good strength with plantar dorsiflexion of both feet. She has good strength with extension and flexion of both knees. She has good distal sensation. Course - Re-evaluation Re-evalutation: 02/05/17 03:30 Toradol shot did not significantly improve the patient's pain. Still some pain. She is driving herself home and therefore I will not give any narcotics here. We will discharge her home with prescription for Skelaxin and morphine. I informed her to only take the Skelaxin and Motrin and Tylenol are not controlling her pain. She continues to have moderate pain after the Skelaxin then she can take the morphine. I informed her to use of morphine very sparingly and talked her about the risks of addiction dependency with morphine and therefore to only use it when absolutely needed. Encouraged to continue to walk but not to lift anything heavy. Encouraged her follow-up closely with her primary care doctor early next week. Encouraged to return to ER immediately if she has severe pain, loss of bowel control, urinary retention, leg weakness or numbness. Patient agrees with plan will be discharged home. Patient currently has no signs or symptoms of cauda equina syndrome that she has no midline spinal tenderness, no weakness numbness into her legs, no loss of bowel control , and no urinary retention. Dictation of this chart was performed using voice recognition software; therefore, there may be some unintended grammatical errors. - Vital Signs Vital signs: Temp Pulse Resp BP Pulse Ox 99.0 F 101 H 18 133/86 H 98 02/05/17 01:29 02/05/17 03:09 02/05/17 03:09 02/05/17 03:09 02/05/17 03:09 Discharge - Discharge Clinical Impression: Low back pain Qualifiers: Chronicity: chronic Back pain laterality: right Sciatica presence: without sciatica Qualified Code(s): M54.5 - Low back pain; G89.29 - Other chronic pain; G89.29 - Other chronic pain Condition: Good Disposition: HOME, SELF-CARE Additional Instructions: LOW BACK PAIN: Three out of every four people will have an episode of disabling back pain during their lifetime. Most commonly the pain is due to straining of the muscles and ligaments in the low back. Usual treatment includes: (1) Rest on a firm surface. Avoid lying on your stomach. (2) Ice pack the painful area. After a few days, gentle heat may be used intermittently to relax the area, or ice packs can be continued. (3) Medication may be needed -- muscle relaxers and antiinflammatory medicines are commonly used. (4) As the back improves, exercises are prescribed to strengthen the back and abdominal muscles. Your doctor will advise you on the proper care for your back at each stage in your recovery. You may be better in a few days -- or healing may take several weeks. If new symptoms of a "herniated disc" (radiation of pain, numbness, or tingling down the back of the leg or weakness in the leg) occur, you should be re-examined. Further testing may be necessary. PAIN MEDICATION INJECTION: You have received an injection of a pain medication. You should experience significant pain relief within 45 minutes. If this injection was a narcotic -- it will impair your judgement, slow your reaction time and make you sleepy (as well as relieve your pain). Narcotics also can cause nausea. You should not drive, work with machinery, or perform any task requiring mental alertness until all effects of the medication are gone -- six to eight hours. Do not take any alcohol, or sedatives, and do not take any other medication without checking with your physician. ORAL NARCOTIC MEDICATION: You have been given a prescription for pain control. This medication is a narcotic. It's best taken with food, as nausea can result if taken on an empty stomach. Don't operate machinery or drive within six hours of taking this medication. Do not combine this medicine with alcohol, or with any medication which can cause sedation (such as cold tablets or sleeping pills) unless you get permission from the physician. Narcotics tend to cause constipation. If possible, drink plenty of fluids and eat a diet high in fiber and fruits. Please be aware that prescription narcotics also have the potential for abuse. People become addicted to these medications because of the general sense of wellbeing that they induce. This feeling along with a significant reduction in tension, anxiety, and aggression provides a stimulating seductive quality to these drugs. Once your pain is under control, we encourage you to discard your unused narcotics. MUSCLE RELAXERS: Muscle relaxing medications are usually prescribed for acute muscle spasm or injury to the neck and back. They are often combined with antiinflammatory pain medication for increased relief. You may stop the muscle relaxer when the pain and stiffness have improved. Start the medication again if spasms recur. Muscle relaxers may cause drowsiness, especially with the first dose. Do not operate machinery or drive while under the effects of the medication. Most muscle relaxers last up to 24 hours. Do not combine the medication with alcohol. ICE PACKS: Apply ice packs frequently against the painful area. Many different schedules are recommended, such as "20 minutes on, 20 minutes off" or "one hour ice, two hours rest." If you need to work, you may need to go longer between ice treatments. You should plan to have the area ice packed AT LEAST one fourth of the time. The ice should be applied over the wrap, tape, or splint, or over a layer of cloth -- not directly against the skin. Some ice bags have a built-in cloth and can be put directly on the skin. WARM PACKS: After approximately two days, apply gentle heat (such as a heating pad or hot water bottle) for about 20 to 30 minutes about every two hours -- at least four times daily. Warmth and elevation will help you make a more rapid recovery , and will ease the pain considerably. Do not use HOT heat, and never apply heat for longer than 30 minutes. The continuous heat can invisibly damage skin and muscles -- even when no burn is seen on the surface. Damaged muscles can make you MORE sore. FOLLOW-UP CARE: If you have been referred to a physician for follow-up care, call the physician s office for an appointment as you were instructed or within the next two days. If you experience worsening or a significant change in your symptoms, notify the physician immediately or return to the Emergency Department at any time for re-evaluation. Please take Motrin 600mg every 6 hours for pain in conjunction with Tylenol 500mg every 4 hours. If you are still having pain than try the Skelaxin next. If you are still having pain after that than you can take the Morphine, but please use the Morphine very sparingly as this medication can be addictive and is not good for adjunct faculty for medical terminology use. Please be aware that the morphine will make you sleepy , so you should not drive or operate machinery when taking this medication. Please return to the ER if you are having worsening low back pain, fevers, vomiting, leg weakness or numbness, or loss of bowel control or inability to urinate. Follow up with your doctor early next week for reevaluation. Prescriptions: Metaxalone [Skelaxin 800 mg Tablet] 800 mg PO ASDIR PRN #20 tablet PRN Reason: Morphine Sulfate [Morphine Ir 15 Mg Tablet] 15 mg PO Q6 PRN #12 tablet PRN Reason:
[2017-02-05 02:31] LABS: APPEARANCE,URINE CLEAR; BILIRUBIN,URINE NEGATIVE (NEGATIVE); CALCIUM OXALATE CRYSTALS,URINE FEW /HPF; GLUCOSE, URINE NEGATIVE (NEGATIVE); KETONES,URINE NEGATIVE (NEGATIVE); LEUKOCYTE ESTERASE,URINE NEGATIVE (NEGATIVE); NITRITE,URINE NEGATIVE (NEGATIVE); PROTEIN,URINE NEGATIVE (NEGATIVE); URINE SPECIFIC GRAVITY 1.028; UROBILINOGEN,URINE NEGATIVE mg/dL (<2.0)
[2017-02-05 03:10] VITALS: BP 133/86
== END 2017-02-05 03:30 | disposition home or self-care (01) ==
LOC: ER 01:20
DX: G89.29 Other chronic pain (principal); M54.5 Low back pain; I10 Essential (primary) hypertension; J45.909 Unspecified asthma, uncomplicated; Z98.890 Other specified postprocedural states
CPT/HCPCS: 99283; 96372; 81001; J1885

== ENCOUNTER 2017-02-13 09:07 | Emergency (ER) | payer MEDICARE ==
[2017-02-13] MEDS ORDERED: NORMAL SALINE 500 ML IV ONE (09:47)
[2017-02-13] MEDS ORDERED: ONDANSETRON HCL INJ/PF 4 MG/2 ML SDV IV ONE (09:47)
[2017-02-13] MEDS ORDERED: KETOROLAC TROMETHAMINE 60 MG/2 ML SDV IV ONE (09:47)
--- NOTE | 2017-02-13 09:52 | ER Document Report ---
ED Medical Screen (RME) - General Mode of Arrival: Ambulatory Information source: Patient TRAVEL OUTSIDE OF THE [place] IN LAST 30 DAYS: No <OLYA SOMMERS - Last Filed: 02/13/17 09:59> <DALILA BURGESS - Last Filed: 02/13/17 13:00> - General Chief Complaint: Vomiting Stated Complaint: NAUSEA,VOMITING Time Seen by Provider: 02/13/17 09:39 Notes: Patient is a 52 year old female with a history of kidney stones presents to the emergency department complaining of worsening nausea, vomiting, and right sided abdominal pain onset 3 days ago. Patient also complains of a headache onset this morning. Patient states that she generally feels weak and has been unable to keep any fluids down. Patient denies hematuria, dysuria, diarrhea, blurry vision, or fevers. I have greeted and performed a rapid initial assessment of this patient. A comprehensive ED assessment and evaluation of the patient, analysis of test results and completion of the medical decision making process will be conducted by additional ED providers. (OLYA SOMMERS) - Related Data Allergies/Adverse Reactions: No Known Allergies Allergy (Verified 02/13/17 09:07) Past Medical History - General Information source: Patient - Social History Cigarette use (# per day): No Chew tobacco use (# tins/day): No Frequency of alcohol use: None Drug Abuse: None - Past Medical History Cardiac Medical History: Reports: Hx Hypertension Pulmonary Medical History: Reports: Hx Asthma Neurological Medical History: Reports: Hx Migraine Endocrine Medical History: Reports: Hx Hypothyroidism Renal/ Medical History: Denies: Hx Peritoneal Dialysis Musculoskeltal Medical History: Reports Hx Arthritis, Reports Hx Muscle Weakness , Reports Hx Musculoskeletal Deformity - ddd multiple back and neck surgeries, Reports Hx Musculoskeletal Trauma - Fractured bilateral clavicle as a child Psychiatric Medical History: Reports: Hx Depression Traumatic Medical History: Reports: Hx Fractures - Bilateral clavicle Past Surgical History: Reports: Hx Hysterectomy, Hx Oral Surgery - [place] teeth , Hx Orthopedic Surgery - Back 2006, BL Knee ARTHROSCOPIC,3 neck surgeries - Immunizations Immunizations up to date: No Hx Diphtheria, Pertussis, Tetanus Vaccination: No - 1999 <OLYA SOMMERS - Last Filed: 02/13/17 09:59> Physical Exam <OLYA SOMMERS - Last Filed: 02/13/17 09:59> <DALILA BURGESS - Last Filed: 02/13/17 13:00> - Vital signs Vitals: Temp Pulse Resp BP Pulse Ox 98.6 F 105 H 20 149/91 H 99 02/13/17 09:26 02/13/17 09:26 02/13/17 09:26 02/13/17 09:26 02/13/17 09:26 - Notes Notes: GENERAL: Alert, interacts well. No acute distress. LUNGS: Clear to auscultation bilaterally, no wheezes, rales, or rhonchi. No respiratory distress. HEART: Regular rate and rhythm. No murmurs, gallops, or rubs. ABDOMEN: Soft, non-tender. Non-distended. Bowel sounds present in all 4 quadrants. (OLYA SOMMERS) Course - Laboratory Result Diagrams: 02/13/17 10:00 02/13/17 10:00 <DALILA BURGESS - Last Filed: 02/13/17 13:00> - Vital Signs Vital signs: Temp Pulse Resp BP Pulse Ox 98.1 F 89 18 142/74 H 99 02/13/17 12:52 02/13/17 12:52 02/13/17 12:52 02/13/17 12:52 02/13/17 12:52 - Laboratory Laboratory results interpreted by me: 02/13/17 02/13/17 10:00 10:25 Sodium 145.2 H Calcium 10.8 H Urine Ascorbic Acid 40 H Doctor's Discharge <OLYA SOMMERS - Last Filed: 02/13/17 09:59> <DALILA BURGESS - Last Filed: 02/13/17 13:00> - Discharge Clinical Impression: Headache, Nausea Condition: Stable Disposition: HOME, SELF-CARE Instructions: Migraine Headache ([facility]) Prescriptions: Diphenhydramine HCl [Benadryl 50 mg Capsule] 50 mg PO Q6 #20 capsule Promethazine HCl [Phenergan 25 mg Tablet] 1 - 2 tab PO Q6H PRN #15 tablet PRN Reason: Referrals: MANUEL MILLER MD [ACTIVE STAFF] - Follow up tomorrow Scribe Documentation - Scribe Written by Scribe:: Ben Garcia, 02/13/2017 09:59 acting as scribe for :: Keaton <OLYA SOMMERS - Last Filed: 02/13/17 09:59>
[2017-02-13 10:16] LABS: ABSOLUTE BASOPHILS # (AUTO) 0.1 10^3/uL (0.0-0.2); ABSOLUTE EOSINOPHILS # (AUTO) 0.2 10^3/uL (0.0-0.6); ABSOLUTE MONOCYTES (AUTO) 0.5 10^3/uL (0.1-1.4); ABSOLUTE NEUT (AUTO) 4.7 10^3/uL (1.7-8.2); EOSINOPHILS % (AUTO) 3.1 % (0-6); HEMATOCRIT 37.1 % (36.0-47.0); HEMOGLOBIN 12.4 g/dL (12.0-15.5); HGB HCT DIFFERENCE 0.1; LYMPHOCYTES % (AUTO) 26.3 % (13-45); MEAN CORPUSCULAR HEMOGLOBIN 29.8 pg (27.0-33.4); MEAN CORPUSCULAR HGB CONC 33.4 g/dL (32.0-36.0); MEAN CORPUSCULAR VOLUME 89 fl (80-97); MONOCYTES % (AUTO) 7.1 % (3-13); RED BLOOD COUNT 4.16 10^6/uL (3.72-5.28); RED CELL DISTRIBUTION WIDTH 13.6 % (11.5-14.0); SEGMENTED NEUTROPHILS % (AUTO) 62.5 % (42-78); WHITE BLOOD COUNT 7.5 10^3/uL (4.0-10.5)
[2017-02-13 10:38] LABS: ALANINE AMINOTRANSFERASE 23 U/L (9-52); ALBUMIN 4.8 g/dL (3.5-5.0); ALKALINE PHOSPHATASE 116 U/L (38-126); ANION GAP 15 (5-19); ASPARTATE AMINO TRANSFERASE 21 U/L (14-36); BILIRUBIN,DIRECT 0.3 mg/dL (0.0-0.4); BILIRUBIN,TOTAL 0.6 mg/dL (0.2-1.3); BLOOD UREA NITROGEN 8 mg/dL (7-20); CALCIUM 10.8 mg/dL (8.4-10.2); CARBON DIOXIDE 26 mmol/L (22-30); CHLORIDE 104 mmol/L (98-107); CREATININE RESULT 0.97 mg/dL (0.52-1.25); GLUCOSE 99 mg/dL (75-110); LIPASE 31.1 U/L (23-300); SODIUM 145.2 mmol/L (137-145); TOTAL PROTEIN 8.2 g/dL (6.3-8.2)
[2017-02-13 10:40] LABS: POTASSIUM 4.2 mmol/L (3.6-5.0)
[2017-02-13 10:46] LABS: APPEARANCE,URINE CLEAR; BILIRUBIN,URINE NEGATIVE (NEGATIVE); GLUCOSE, URINE NEGATIVE (NEGATIVE); KETONES,URINE NEGATIVE (NEGATIVE); LEUKOCYTE ESTERASE,URINE NEGATIVE (NEGATIVE); NITRITE,URINE NEGATIVE (NEGATIVE); PROTEIN,URINE NEGATIVE (NEGATIVE); URINE SPECIFIC GRAVITY 1.029; UROBILINOGEN,URINE NEGATIVE mg/dL (<2.0)
[2017-02-13] MEDS ORDERED: DIPHENHYDRAMINE HCL 50 MG/ML VIAL IV ONE (11:43)
[2017-02-13] MEDS ORDERED: PROCHLORPERAZINE EDISYLATE INJ 10 MG/2 ML VIAL IV ONE (11:43)
--- NOTE | 2017-02-13 11:44 | ER Document Report ---
ED General - General Chief Complaint: Vomiting Stated Complaint: NAUSEA,VOMITING Time Seen by Provider: 02/13/17 09:39 Mode of Arrival: Ambulatory Information source: Patient Notes: 52-year-old female history of migraine headaches presents with complaints of a migraine. Patient notes this feels similar to all her previous migraines that she has had since she was in eighth grade. She denies any any neuro deficits admits nausea vomiting TRAVEL OUTSIDE OF THE [place] IN LAST 30 DAYS: No - HPI Onset: Other - Gradual over the past few days Onset/Duration: Persistent Quality of pain: Achy Severity: Mild Pain Level: 1 Associated symptoms: Headache, Nausea, Vomiting Exacerbated by: Denies Relieved by: Denies Similar symptoms previously: Yes Recently seen / treated by doctor: Yes - Related Data Allergies/Adverse Reactions: No Known Allergies Allergy (Verified 02/13/17 09:07) Past Medical History - General Information source: Patient - Social History Smoking Status: Never Smoker Cigarette use (# per day): No Chew tobacco use (# tins/day): No Smoking Education Provided: No Frequency of alcohol use: None Drug Abuse: None Family History: Arthritis, CAD, CVA, DM, Hyperlipidemia, Hypertension, Malignancy, Thyroid Disfunction Patient has suicidal ideation: No Patient has homicidal ideation: No - Past Medical History Cardiac Medical History: Reports: Hx Hypertension Pulmonary Medical History: Reports: Hx Asthma Neurological Medical History: Reports: Hx Migraine Endocrine Medical History: Reports: Hx Hypothyroidism Renal/ Medical History: Denies: Hx Peritoneal Dialysis Musculoskeltal Medical History: Reports Hx Arthritis, Reports Hx Muscle Weakness , Reports Hx Musculoskeletal Deformity - ddd multiple back and neck surgeries, Reports Hx Musculoskeletal Trauma - Fractured bilateral clavicle as a child Psychiatric Medical History: Reports: Hx Depression Traumatic Medical History: Reports: Hx Fractures - Bilateral clavicle Past Surgical History: Reports: Hx Hysterectomy, Hx Oral Surgery - [place] teeth , Hx Orthopedic Surgery - Back 2006, BL Knee ARTHROSCOPIC,3 neck surgeries - Immunizations Immunizations up to date: No Hx Diphtheria, Pertussis, Tetanus Vaccination: No - 1999 Review of Systems - Review of Systems Notes: REVIEW OF SYSTEMS: CONSTITUTIONAL : Denies fever, chills, or sweats. Denies recent illness. EENT: Denies eye, ear, throat, or mouth pain or symptoms. Denies nasal or sinus congestion or discharge. Denies throat, tongue, or mouth swelling or difficulty swallowing. CARDIOVASCULAR: Denies chest pain. Denies palpitations or racing or irregular heart beat. Denies ankle edema. RESPIRATORY: Denies cough, cold, or chest congestion. Denies shortness of breath, difficulty breathing, or wheezing. GASTROINTESTINAL: Admits to nausea vomiting GENITOURINARY: Denies difficulty urinating, painful urination, burning, frequency, blood in urine, or discharge. FEMALE GENITOURINARY: Denies vaginal bleeding, heavy or abnormal periods, irregular periods. Denies vaginal discharge or odor. MUSCULOSKELETAL: Denies back or neck pain or stiffness. Denies joint pain or swelling. SKIN: Denies rash, lesions or sores. HEMATOLOGIC : Denies easy bruising or bleeding. LYMPHATIC: Denies swollen, enlarged glands. NEUROLOGICAL: Admits to headache PSYCHIATRIC: Denies anxiety or stress. Denies depression, suicidal ideation, or homicidal ideation. ALL OTHER SYSTEMS REVIEWED AND NEGATIVE. PHYSICAL EXAMINATION: GENERAL: Well-appearing, well-nourished and in no acute distress. HEAD: Atraumatic, normocephalic. EYES: Pupils equal round and reactive to light, extraocular movements intact, conjunctiva are normal. ENT: Nares patent, oropharynx clear without exudates. Moist mucous membranes. NECK: Normal range of motion, supple without lymphadenopathy LUNGS: Breath sounds clear to auscultation bilaterally and equal. No wheezes rales or rhonchi. HEART: Regular rate and rhythm without murmurs ABDOMEN: Soft, nontender, nondistended abdomen. No guarding, no rebound. No masses appreciated. Female : deferred Musculoskeletal: Normal range of motion, no pitting or edema. No cyanosis. NEUROLOGICAL: Cranial nerves grossly intact. Normal speech, normal gait. Normal sensory, motor exams PSYCH: Normal mood, normal affect. SKIN: Warm, Dry, normal turgor, no rashes or lesions noted. Dictation was performed using [employer] voice recognition software Physical Exam - Vital signs Vitals: Temp Pulse Resp BP Pulse Ox 98.6 F 105 H 20 149/91 H 99 02/13/17 09:26 02/13/17 09:26 02/13/17 09:26 02/13/17 09:26 02/13/17 09:26 Course - Re-evaluation Re-evalutation: 02/13/17 16:09 Patient's lab work noted no significant abnormality, she was initially given Zofran and Toradol in triage and noted symptoms did not improve, she was then given Benadryl Compazine by myself and notes resolution of her headache. She denies any other complaints wishes to be discharged home, I will discharge her home with the understanding that this is a chronic headache and that if new symptoms do arise that she must return immediately for further evaluation and care After performing a Medical Screening Examination, I estimate there is LOW risk for ACUTE GLAUCOMA, TEMPORAL ARTERITIS, MENINGITIS, INCRANIAL HEMORRHAGE, or ISCHEMIC STROKE thus I consider the discharge disposition reasonable. I have reevaluated this patient multiple times and no significant life threatening changes are noted. The patient and I have discussed the diagnosis and risks, and we agree with discharging home with close follow-up with the understanding that symptoms and presentations can change. We also discussed returning to the Emergency Department immediately if new or worsening symptoms occur. We have discussed the symptoms which are most concerning (e.g., changing or worsening symptoms, new numbness or weakness, vomiting, fever) that necessitate immediate return. - Vital Signs Vital signs: Temp Pulse Resp BP Pulse Ox 98.1 F 89 18 142/74 H 99 02/13/17 12:52 02/13/17 12:52 02/13/17 12:52 02/13/17 12:52 02/13/17 12:52 - Laboratory Result Diagrams: 02/13/17 10:00 02/13/17 10:00 Laboratory results interpreted by me: 02/13/17 02/13/17 10:00 10:25 Sodium 145.2 H Calcium 10.8 H Urine Ascorbic Acid 40 H Discharge - Discharge Clinical Impression: Nausea Headache Qualifiers: Headache type: unspecified Headache chronicity pattern: chronic headache Intractability: not intractable Qualified Code(s): R51 - Headache Condition: Stable Disposition: HOME, SELF-CARE Instructions: Migraine Headache ([facility]) Prescriptions: Diphenhydramine HCl [Benadryl 50 mg Capsule] 50 mg PO Q6 #20 capsule Promethazine HCl [Phenergan 25 mg Tablet] 1 - 2 tab PO Q6H PRN #15 tablet PRN Reason: Referrals: MANUEL MILLER MD [ACTIVE STAFF] - Follow up tomorrow
[2017-02-13 12:55] VITALS: BP 142/74
== END 2017-02-13 12:55 | disposition home or self-care (01) ==
LOC: ER 09:07
DX: R51 Headache (principal); R11.2 Nausea with vomiting, unspecified
CPT/HCPCS: 99283; 96374; 96375; 36415; 83690; 85025; 80053; 81001; J1200; J1885; J0780; J2405; J7040

== ENCOUNTER 2017-03-14 08:28 | Emergency (ER) | payer MEDICARE, OTHER ==
[2017-03-14 09:45] LABS: ABSOLUTE EOSINOPHILS # (AUTO) 0.3 10^3/uL (0.0-0.6); ABSOLUTE LYMPHOCYTES (AUTO) 2.1 10^3/uL (0.5-4.7); ABSOLUTE MONOCYTES (AUTO) 0.5 10^3/uL (0.1-1.4); ABSOLUTE NEUT (AUTO) 3.5 10^3/uL (1.7-8.2); BASOPHILS % (AUTO) 0.5 % (0-2); EOSINOPHILS % (AUTO) 4.3 % (0-6); HEMOGLOBIN 11.5 g/dL (12.0-15.5); LYMPHOCYTES % (AUTO) 32.1 % (13-45); MEAN CORPUSCULAR HEMOGLOBIN 29.9 pg (27.0-33.4); MEAN CORPUSCULAR HGB CONC 33.8 g/dL (32.0-36.0); MEAN CORPUSCULAR VOLUME 89 fl (80-97); MONOCYTES % (AUTO) 8.4 % (3-13); PLATELET COUNT 303 10^3/uL (150-450); RED BLOOD COUNT 3.85 10^6/uL (3.72-5.28); RED CELL DISTRIBUTION WIDTH 13.7 % (11.5-14.0); SEGMENTED NEUTROPHILS % (AUTO) 54.7 % (42-78); TOTAL CELLS COUNTED % (AUTO) 100 %; WHITE BLOOD COUNT 6.4 10^3/uL (4.0-10.5)
[2017-03-14 09:56] LABS: ALANINE AMINOTRANSFERASE 15 U/L (9-52); ALBUMIN 4.3 g/dL (3.5-5.0); ALKALINE PHOSPHATASE 89 U/L (38-126); ANION GAP 9 (5-19); ASPARTATE AMINO TRANSFERASE 16 U/L (14-36); BILIRUBIN,DIRECT 0.3 mg/dL (0.0-0.4); BILIRUBIN,TOTAL 0.6 mg/dL (0.2-1.3); BLOOD UREA NITROGEN 12 mg/dL (7-20); CARBON DIOXIDE 25 mmol/L (22-30); CHLORIDE 107 mmol/L (98-107); GLUCOSE 101 mg/dL (75-110); LIPASE 35.7 U/L (23-300); POTASSIUM 3.8 mmol/L (3.6-5.0); SODIUM 140.7 mmol/L (137-145); TOTAL PROTEIN 7.2 g/dL (6.3-8.2)
[2017-03-14] MEDS ORDERED: ONDANSETRON 4 MG TAB.RAPDIS PO ONE (11:10)
[2017-03-14 11:17] LABS: APPEARANCE,URINE SLIGHTLY-CLOUDY; BILIRUBIN,URINE NEGATIVE (NEGATIVE); COLOR,URINE YELLOW; GLUCOSE, URINE NEGATIVE (NEGATIVE); KETONES,URINE NEGATIVE (NEGATIVE); LEUKOCYTE ESTERASE,URINE NEGATIVE (NEGATIVE); NITRITE,URINE NEGATIVE (NEGATIVE); PROTEIN,URINE NEGATIVE (NEGATIVE); URINE SPECIFIC GRAVITY 1.021; UROBILINOGEN,URINE NEGATIVE mg/dL (<2.0)
[2017-03-14] MEDS: KETOROLAC TROMETHAMINE 60 MG/2 ML SDV IM ONE (11:34)
--- NOTE | 2017-03-14 11:43 | RADIOLOGY REPORT (SQ) ---
EXAM DESCRIPTION: CT LTD RENAL STONE PROTOCOL ON COMPLETED DATE/TIME: 03/14/2017 11:36 am REASON FOR STUDY: right flank pain COMPARISON: None. TECHNIQUE: CT scan of the abdomen and pelvis performed without intravenous or oral contrast. Images reviewed with lung, soft tissue, and bone windows. Reconstructed coronal and sagittal MPR images revi ewed. All images stored on PACS. All CT scanners at this facility use dose modulation, iterative reconstruction, and/or weight based d osing when appropriate to reduce radiation dose to as low as reasonably achievable (ALARA). [facility]: Dose Right [facility]: CareDose [facility]: Dose Right [facility]: Teradose 4D [facility]: [employer] RADIATION DOSE: CT Rad equipment meets quality standard of care and radiation dose reduction techniq ues were employed. CTDIvol: 19.1 mGy. DLP: 1032 mGy-cm.mGy. LIMITATIONS: None. FINDINGS: LOWER CHEST: No significant findings. No nodules or infiltrates. NON-CONTRASTED LIVER, SPLEEN, ADRENALS: Evaluation limited by lack of IV contrast. No identified sign ificant masses. PANCREAS: No masses. No peripancreatic inflammatory changes. GALLBLADDER: No identified stones by CT criteria. No inflammatory changes to suggest cholecystitis. RIGHT KIDNEY AND URETER: No suspicious masses. Assessment limited by lack of IV contrast. Nonobstru cting calculi measuring up to 4 mm. No hydronephrosis or hydroureter. LEFT KIDNEY AND URETER: No suspicious masses. Assessment limited by lack of IV contrast. No signifi cant calcifications. No hydronephrosis or hydroureter. AORTA AND RETROPERITONEUM: No aneurysm. No retroperitoneal masses or adenopathy. BOWEL AND PERITONEAL CAVITY: No obvious masses or inflammatory changes. No free fluid. APPENDIX: Normal. PELVIS, BLADDER, AND ABDOMINAL WALL:No abnormal masses. No free fluid. Bladder normal. BONES: Status post posterior fusion L5-S1 level without gross complication. OTHER: No other significant finding. IMPRESSION: RIGHT-SIDED NEPHROLITHIASIS WITHOUT LOWER URINARY TRACT STONES OR HYDRONEPHROSIS. COMMENT: Quality ID # [id number]: Final reports with documentation of one or more dose reduction techniques (e.g., Automated exposure control, adjustment of the mA and/or kV according to patient size, use of iterative reconstruction technique) TECHNICAL DOCUMENTATION: JOB ID: [id number] All Rights Reserved
--- NOTE | 2017-03-14 12:04 | ER Document Report ---
ED General - General Chief Complaint: Abdominal Pain Stated Complaint: ABDOMINAL PAIN Time Seen by Provider: 03/14/17 09:27 Mode of Arrival: Ambulatory Information source: Patient Notes: Patient presents emergency department with complaints of right-sided abdominal pain radiating to her lower back. Reports she has been to see her primary care provider 3 times in the past 3 weeks. No antibiotics or pain medication initiated. She reports history of kidney stones. Denies urinary frequency or pain with void. Denies diarrhea reports vomited all night. TRAVEL OUTSIDE OF THE [place] IN LAST 30 DAYS: No - HPI Onset: Other - 3 weeks Quality of pain: Achy, Sharp Severity: Mild Pain Level: 1 Associated symptoms: Vomiting Exacerbated by: Denies Relieved by: Denies Similar symptoms previously: Yes Recently seen / treated by doctor: Yes - Related Data Allergies/Adverse Reactions: No Known Allergies Allergy (Verified 03/14/17 08:30) Past Medical History - General Information source: Patient Last Menstrual Period: hyster - Social History Smoking Status: Never Smoker Chew tobacco use (# tins/day): No Frequency of alcohol use: None Drug Abuse: None Occupation: disabled Family History: Arthritis, CAD, CVA, DM, Hyperlipidemia, Hypertension, Malignancy, Thyroid Disfunction Patient has suicidal ideation: No Patient has homicidal ideation: No - Past Medical History Cardiac Medical History: Reports: Hx Hypertension Pulmonary Medical History: Reports: Hx Asthma Neurological Medical History: Reports: Hx Migraine Endocrine Medical History: Reports: Hx Hypothyroidism Renal/ Medical History: Reports: Hx Kidney Stones. Denies: Hx Peritoneal Dialysis Musculoskeltal Medical History: Reports Hx Arthritis, Reports Hx Muscle Weakness , Reports Hx Musculoskeletal Deformity - ddd multiple back and neck surgeries, Reports Hx Musculoskeletal Trauma - Fractured bilateral clavicle as a child Psychiatric Medical History: Reports: Hx Depression Traumatic Medical History: Reports: Hx Fractures - Bilateral clavicle Past Surgical History: Reports: Hx Hysterectomy, Hx Oral Surgery - [place] teeth , Hx Orthopedic Surgery - Back 2006, BL Knee ARTHROSCOPIC,3 neck surgeries - Immunizations Immunizations up to date: No Hx Diphtheria, Pertussis, Tetanus Vaccination: No - 1999 Review of Systems - Review of Systems Notes: Review HPI for review of systems., All other systems negative Physical Exam - Vital signs Vitals: Temp Pulse Resp BP Pulse Ox 98.6 F 104 H 17 154/91 H 100 03/14/17 08:33 03/14/17 08:33 03/14/17 08:33 03/14/17 08:33 03/14/17 08:33 - Notes Notes: PHYSICAL EXAMINATION: GENERAL: Well-appearing and in no acute distress nontoxic looking HEAD: Atraumatic, normocephalic. EYES: Pupils equal round , extraocular movements intact, sclera anicteric, conjunctiva are normal. ENT: nares patent, Moist mucous membranes. NECK: Normal range of motion, supple without lymphadenopathy LUNGS: CTAB and equal. No wheezes rales or rhonchi. HEART: Regular rate and rhythm without murmurs ABDOMEN: Soft, no tenderness. No guarding, no rebound BACK: Right CVA tenderness EXTREMITIES: Normal range of motion, no pitting edema. No cyanosis. NEUROLOGICAL: Cranial nerves grossly intact. Normal sensory/motor exams. PSYCH: Normal mood, normal affect. SKIN: Warm, Dry, normal turgor, no rashes or lesions noted Course - Re-evaluation Re-evalutation: 03/14/17 labs unremarkable, ct shows nephrolithiasis , pt reports toradol did not help with pain, will prescribe percocet, pt has ride home. pt instructed on flomax, importance of fu with pcp and urologist. she verbalized understanding. - Vital Signs Vital signs: Temp Pulse Resp BP Pulse Ox 98.3 F 95 20 144/90 H 100 03/14/17 12:18 03/14/17 12:18 03/14/17 12:18 03/14/17 12:18 03/14/17 12:18 - Laboratory Result Diagrams: 03/14/17 09:20 03/14/17 09:20 Laboratory results interpreted by me: 03/14/17 03/14/17 09:20 10:50 Hgb 11.5 L Hct 34.0 L Urine Blood SMALL H - Diagnostic Test Radiology reviewed: Image reviewed, Reports reviewed - Diagnostic report text EXAM DESCRIPTION: CT LTD RENAL STONE PROTOCOL ON COMPLETED DATE/TIME: 2017 11:36 am REASON FOR STUDY: right flank pain COMPARISON: None. TECHNIQUE: CT scan of the abdomen and pelvis performed without intravenous or oral contrast. Images reviewed with lung, soft tissue, and bone windows. Reconstructed coronal and sagittal MPR images reviewed. All images stored on PACS. All CT scanners at this facility use dose modulation, iterative reconstruction, and/or weight based dosing when appropriate to reduce radiation dose to as low as reasonably achievable (ALARA). [facility]: Dose Right [facility]: CareDose [facility]: Dose Right [facility]: Teradose 4D [facility]: [employer] RADIATION DOSE: CT Rad equipment meets quality standard of care and radiation dose reduction techniques were employed. CTDIvol: 19.1 mGy. DLP: 1032 mGy- cm.mGy. LIMITATIONS: None. FINDINGS: LOWER CHEST: No significant findings. No nodules or infiltrates. NON-CONTRASTED LIVER, SPLEEN, ADRENALS: Evaluation limited by lack of IV contrast. No identified significant masses. PANCREAS: No masses. No peripancreatic inflammatory changes. GALLBLADDER: No identified stones by CT criteria. No inflammatory changes to suggest cholecystitis. RIGHT KIDNEY AND URETER: No suspicious masses. Assessment limited by lack of IV contrast. Nonobstructing calculi measuring up to 4 mm. No hydronephrosis or hydroureter. LEFT KIDNEY AND URETER: No suspicious masses. Assessment limited by lack of IV contrast. No significant calcifications. No hydronephrosis or hydroureter. AORTA AND RETROPERITONEUM: No aneurysm. No retroperitoneal masses or adenopathy. BOWEL AND PERITONEAL CAVITY: No obvious masses or inflammatory changes. No free fluid. APPENDIX: Normal. PELVIS, BLADDER, AND ABDOMINAL WALL: No abnormal masses. No free fluid. Bladder normal. BONES: Status post posterior fusion L5-S1 level without gross complication. OTHER: No other significant finding. IMPRESSION: RIGHT-SIDED NEPHROLITHIASIS WITHOUT LOWER URINARY TRACT STONES OR HYDRONEPHROSIS. Discharge - Discharge Clinical Impression: Flank pain, Kidney stones Condition: Stable Disposition: HOME, SELF-CARE Instructions: Flank Pain ([facility]), Flomax ([facility]), Kidney Stone ([facility]), Oral Narcotic Medication ([facility]) Additional Instructions: *You have been evaluated for flank pain, kidney stones *Take medication as prescribed *Follow up with your primary care provider within 5 days *follow up with a urologist this week *Return to ED for worsening condition, changes, needs *Return to ED if not better in 24 hours Prescriptions: Ondansetron HCl [Zofran 4 mg Tablet] 1 - 2 tab PO Q4H PRN #10 tablet PRN Reason: Oxycodone HCl/Acetaminophen [Percocet 5-325 mg Tablet] 1 - 2 tab PO ASDIR PRN # 15 tablet PRN Reason: Tamsulosin HCl [Flomax 0.4 mg Cap.sr] 0.4 mg PO DAILY #7 cap.sr.24h Forms: Elevated Blood Pressure
[2017-03-14] MEDS ORDERED: OXYCODONE-ACETAMINOPHEN 5-325 MG TABLET PO ONE (12:10)
[2017-03-14 12:37] VITALS: BP 144/90
== END 2017-03-14 12:20 | disposition home or self-care (01) ==
LOC: ER 08:28
DX: N20.0 Calculus of kidney (principal); R10.9 Unspecified abdominal pain; M54.5 Low back pain
CPT/HCPCS: 99284; 96372; 51701; 36415; 83690; 85025; 80053; 81001; 76380; J1885; A9270 ×2; S0119

== ENCOUNTER 2017-03-22 10:06 | Emergency (ER) | payer MEDICARE ==
--- NOTE | 2017-03-22 10:25 | ER Document Report ---
ED General - General Chief Complaint: Abdominal Pain Stated Complaint: ABDOMINAL PAIN Time Seen by Provider: 03/22/17 10:12 Mode of Arrival: Ambulatory Information source: Patient Notes: 52 yr old female hx of kidney stones presents with complaints of continued right sided pain. Pt notes that the stone has not passed, she dneies any fevers chills, nausea vomiting or diarrhea. Pt had recent CT, pt has appt with urology in [place] TRAVEL OUTSIDE OF THE [place] IN LAST 30 DAYS: No - HPI Onset: Other Onset/Duration: Persistent Quality of pain: Sharp Severity: Mild Pain Level: 1 Associated symptoms: Other Exacerbated by: Denies Relieved by: Denies Similar symptoms previously: Yes Recently seen / treated by doctor: Yes - Related Data Allergies/Adverse Reactions: No Known Allergies Allergy (Verified 03/22/17 10:06) Past Medical History - Social History Smoking Status: Never Smoker Cigarette use (# per day): No Chew tobacco use (# tins/day): No Smoking Education Provided: No Frequency of alcohol use: None Drug Abuse: None Family History: Arthritis, CAD, CVA, DM, Hyperlipidemia, Hypertension, Malignancy, Thyroid Disfunction Patient has suicidal ideation: No Patient has homicidal ideation: No - Past Medical History Cardiac Medical History: Reports: Hx Hypertension Pulmonary Medical History: Reports: Hx Asthma Neurological Medical History: Reports: Hx Migraine Endocrine Medical History: Reports: Hx Hypothyroidism Renal/ Medical History: Reports: Hx Kidney Stones. Denies: Hx Peritoneal Dialysis Musculoskeltal Medical History: Reports Hx Arthritis, Reports Hx Muscle Weakness , Reports Hx Musculoskeletal Deformity - ddd multiple back and neck surgeries, Reports Hx Musculoskeletal Trauma - Fractured bilateral clavicle as a child Psychiatric Medical History: Reports: Hx Depression Traumatic Medical History: Reports: Hx Fractures - Bilateral clavicle Past Surgical History: Reports: Hx Hysterectomy, Hx Oral Surgery - [place] teeth , Hx Orthopedic Surgery - Back 2006, BL Knee ARTHROSCOPIC,3 neck surgeries - Immunizations Immunizations up to date: No Hx Diphtheria, Pertussis, Tetanus Vaccination: No - 1999 Review of Systems - Review of Systems Notes: REVIEW OF SYSTEMS: CONSTITUTIONAL : Denies fever, chills, or sweats. Denies recent illness. EENT: Denies eye, ear, throat, or mouth pain or symptoms. Denies nasal or sinus congestion or discharge. Denies throat, tongue, or mouth swelling or difficulty swallowing. CARDIOVASCULAR: Denies chest pain. Denies palpitations or racing or irregular heart beat. Denies ankle edema. RESPIRATORY: Denies cough, cold, or chest congestion. Denies shortness of breath, difficulty breathing, or wheezing. GASTROINTESTINAL: admits to RLQ pain of 1 month GENITOURINARY: Denies difficulty urinating, painful urination, burning, frequency, blood in urine, or discharge. FEMALE GENITOURINARY: Denies vaginal bleeding, heavy or abnormal periods, irregular periods. Denies vaginal discharge or odor. MUSCULOSKELETAL: Denies back or neck pain or stiffness. Denies joint pain or swelling. SKIN: Denies rash, lesions or sores. HEMATOLOGIC : Denies easy bruising or bleeding. LYMPHATIC: Denies swollen, enlarged glands. NEUROLOGICAL: Denies confusion or altered mental status. Denies passing out or loss of consciousness. Denies dizziness or lightheadedness. Denies headache. Denies weakness or paralysis or loss of use of either side. Denies problems with gait or speech. Denies sensory loss, numbness, or tingling. Denies seizures. PSYCHIATRIC: Denies anxiety or stress. Denies depression, suicidal ideation, or homicidal ideation. ALL OTHER SYSTEMS REVIEWED AND NEGATIVE. PHYSICAL EXAMINATION: GENERAL: Well-appearing, well-nourished and in no acute distress. HEAD: Atraumatic, normocephalic. EYES: Pupils equal round and reactive to light, extraocular movements intact, conjunctiva are normal. ENT: Nares patent, oropharynx clear without exudates. Moist mucous membranes. NECK: Normal range of motion, supple without lymphadenopathy LUNGS: Breath sounds clear to auscultation bilaterally and equal. No wheezes rales or rhonchi. HEART: Regular rate and rhythm without murmurs ABDOMEN: Soft, minimally tender in the RLQ, nondistended abdomen. No guarding, no rebound. No masses appreciated. Female : deferred Musculoskeletal: Normal range of motion, no pitting or edema. No cyanosis. NEUROLOGICAL: Cranial nerves grossly intact. Normal speech, normal gait. Normal sensory, motor exams PSYCH: Normal mood, normal affect. SKIN: Warm, Dry, normal turgor, no rashes or lesions noted. Dictation was performed using [employer] voice recognition software Physical Exam - Vital signs Vitals: Temp Pulse Resp BP Pulse Ox 98.6 F 102 H 18 155/89 H 100 03/22/17 10:10 03/22/17 10:10 03/22/17 10:10 03/22/17 10:10 03/22/17 10:10 Course - Re-evaluation Re-evalutation: 03/22/17 10:25 i will repeat imaging, otherwise patient looks well, in no distress 03/22/17 13:[address] again notes stones in the kidney itself with none in the ureter, patient continues to complain of flank pain therefore I will have her follow-up with the urologist treated with anti-inflammatories and give her very strict return precautions her workup otherwise is completely benign this does not appear to be ovarian in nature as the pain is more in the flank there is no involvement of the gallbladder After performing a Medical Screening Examination, I estimate there is LOW risk for ACUTE APPENDICITIS, BOWEL OBSTRUCTION, ACUTE CHOLECYSTITIS, PERFORATED DIVERTICULITIS, INCARCERATED HERNIA, PANCREATITIS, PELVIC INFLAMMATORY DISEASE, PERFORATED ULCER, ECTOPIC , or TUBO-OVARIAN ABSCESS, thus I consider the discharge disposition reasonable. Also, there is no evidence or peritonitis , sepsis, or toxicity. I have reevaluated this patient multiple times and no significant life threatening changes are noted. The patient and I have discussed the diagnosis and risks, and we agree with discharging home with close follow-up with the understanding that symptoms and presentations can change. We also discussed returning to the Emergency Department immediately if new or worsening symptoms occur. We have discussed the symptoms which are most concerning (e.g., bloody stool, fever, changing or worsening pain, vomiting) that necessitate immediate return. - Vital Signs Vital signs: Temp Pulse Resp BP Pulse Ox 98.1 F 96 18 154/72 H 100 03/22/17 12:00 03/22/17 12:00 03/22/17 12:00 03/22/17 12:03/22/17 12:00 - Diagnostic Test Radiology reviewed: Image reviewed, Reports reviewed - report given to the patient Discharge - Discharge Clinical Impression: Kidney stone, Flank pain Condition: Stable Disposition: HOME, SELF-CARE Instructions: Abdominal Pain ([facility]), Flank Pain ([facility]) Additional Instructions: Follow up with your physician tomorrow for further care or return to the ED IMMEDIATELY if symptoms worsen or new concerns occur. If you cannot afford to follow up with your primary care physician a list of low cost clinics have been provided at the end of your discharge papers as well. Prescriptions: Ketorolac Tromethamine [Toradol 10 mg Tablet] 10 mg PO Q8 #30 tablet Metoclopramide HCl [Reglan 10 mg Tablet] 1 - 2 tab PO Q6 #25 tablet
--- NOTE | 2017-03-22 10:50 | RADIOLOGY REPORT (SQ) ---
EXAM DESCRIPTION: CT LTD RENAL STONE PROTOCOL ON COMPLETED DATE/TIME: 03/22/2017 10:29 am REASON FOR STUDY: 1 month flank pain hx kidney stone COMPARISON: None. TECHNIQUE: CT scan of the abdomen and pelvis performed without intravenous or oral contrast. Images reviewed with lung, soft tissue, and bone windows. Reconstructed coronal and sagittal MPR images revi ewed. All images stored on PACS. All CT scanners at this facility use dose modulation, iterative reconstruction, and/or weight based d osing when appropriate to reduce radiation dose to as low as reasonably achievable (ALARA). [facility]: Dose Right [facility]: CareDose [facility]: Dose Right [facility]: Teradose 4D [facility]: [employer] RADIATION DOSE: 1037.88mGy. LIMITATIONS: None. FINDINGS: LOWER CHEST: No significant findings. No nodules or infiltrates. NON-CONTRASTED LIVER, SPLEEN, ADRENALS: Evaluation limited by lack of IV contrast. No identified sign ificant masses. PANCREAS: No masses. No peripancreatic inflammatory changes. GALLBLADDER: No abnormality seen. . RIGHT KIDNEY AND URETER: No suspicious masses. Assessment limited by lack of IV contrast. Nonobstruc tive calculus in upper and lower pole of right kidney. No hydronephrosis or hydroureter. LEFT KIDNEY AND URETER: No suspicious masses. Assessment limited by lack of IV contrast. No signifi cant calcifications. No hydronephrosis or hydroureter. AORTA AND RETROPERITONEUM: No aneurysm. No retroperitoneal masses or adenopathy. BOWEL AND PERITONEAL CAVITY: No obvious masses or inflammatory changes. No free fluid. APPENDIX: Normal. PELVIS, BLADDER, AND ABDOMINAL WALL:Status post hysterectomy. . No free fluid. Bladder normal. BONES: Changes of a lumbar fusion L5-S1 with plates and screws noted. Lumbar spondylosis. Hemangiom a T10 vertebra. OTHER: Ovoid calcification anterior to left psoas muscle could represent geovani calcification or calci fication ovarian vein . IMPRESSION: NONOBSTRUCTIVE CALCULI UPPER AND LOWER POLE RIGHT KIDNEY. NO SIGNIFICANT OR ACUTE PROCE SS IN THE ABDOMEN OR PELVIS. COMMENT: Quality ID # [id number]: Final reports with documentation of one or more dose reduction techniques (e.g., Automated exposure control, adjustment of the mA and/or kV according to patient size, use of iterative reconstruction technique) TECHNICAL DOCUMENTATION: JOB ID: [id number]- All Rights Reserved
[2017-03-22 11:15] LABS: APPEARANCE,URINE CLEAR; BILIRUBIN,URINE NEGATIVE (NEGATIVE); COLOR,URINE YELLOW; GLUCOSE, URINE NEGATIVE (NEGATIVE); KETONES,URINE NEGATIVE (NEGATIVE); LEUKOCYTE ESTERASE,URINE NEGATIVE (NEGATIVE); NITRITE,URINE NEGATIVE (NEGATIVE); PROTEIN,URINE NEGATIVE (NEGATIVE); URINE SPECIFIC GRAVITY 1.023; UROBILINOGEN,URINE NEGATIVE mg/dL (<2.0)
[2017-03-22] MEDS ORDERED: KETOROLAC TROMETHAMINE 10 MG TABLET PO ONE (11:27)
[2017-03-22] MEDS ORDERED: KETOROLAC TROMETHAMINE 60 MG/2 ML SDV IM ONE (11:39)
[2017-03-22 12:01] VITALS: BP 154/72
== END 2017-03-22 12:13 | disposition home or self-care (01) ==
LOC: ER 10:06
DX: N20.0 Calculus of kidney (principal); I10 Essential (primary) hypertension; J45.909 Unspecified asthma, uncomplicated
CPT/HCPCS: 99284; 81001; 76380; A9270; J3490

== ENCOUNTER 2017-03-28 00:01 | Emergency (ER) | payer MEDICARE ==
[2017-03-28 01:19] LABS: APPEARANCE,URINE CLEAR; BILIRUBIN,URINE NEGATIVE (NEGATIVE); COLOR,URINE STRAW; GLUCOSE, URINE NEGATIVE (NEGATIVE); KETONES,URINE NEGATIVE (NEGATIVE); LEUKOCYTE ESTERASE,URINE NEGATIVE (NEGATIVE); NITRITE,URINE NEGATIVE (NEGATIVE); PROTEIN,URINE NEGATIVE (NEGATIVE); URINE SPECIFIC GRAVITY 1.003; UROBILINOGEN,URINE NEGATIVE mg/dL (<2.0)
[2017-03-28] MEDS ORDERED: KETOROLAC TROMETHAMINE INJ/PF 30 MG/1 ML SDV IV ONE (01:46)
[2017-03-28] MEDS ORDERED: NORMAL SALINE 1000 ML 1,000 ML IV ONE (01:46)
[2017-03-28] MEDS ORDERED: ONDANSETRON HCL INJ/PF 4 MG/2 ML SDV IV ONE (01:46)
[2017-03-28 02:10] LABS: ABSOLUTE BASOPHILS # (AUTO) 0.1 10^3/uL (0.0-0.2); ABSOLUTE EOSINOPHILS # (AUTO) 0.4 10^3/uL (0.0-0.6); ABSOLUTE LYMPHOCYTES (AUTO) 2.9 10^3/uL (0.5-4.7); ABSOLUTE MONOCYTES (AUTO) 0.7 10^3/uL (0.1-1.4); ABSOLUTE NEUT (AUTO) 4.4 10^3/uL (1.7-8.2); BASOPHILS % (AUTO) 1.1 % (0-2); EOSINOPHILS % (AUTO) 5.2 % (0-6); HEMATOCRIT 35.5 % (36.0-47.0); HEMOGLOBIN 11.7 g/dL (12.0-15.5); LYMPHOCYTES % (AUTO) 34.2 % (13-45); MEAN CORPUSCULAR HEMOGLOBIN 29.2 pg (27.0-33.4); MEAN CORPUSCULAR HGB CONC 32.8 g/dL (32.0-36.0); MEAN CORPUSCULAR VOLUME 89 fl (80-97); MONOCYTES % (AUTO) 8.1 % (3-13); PLATELET COUNT 293 10^3/uL (150-450); RED BLOOD COUNT 3.99 10^6/uL (3.72-5.28); RED CELL DISTRIBUTION WIDTH 14.3 % (11.5-14.0); SEGMENTED NEUTROPHILS % (AUTO) 51.4 % (42-78); TOTAL CELLS COUNTED % (AUTO) 100 %; WHITE BLOOD COUNT 8.5 10^3/uL (4.0-10.5)
[2017-03-28 02:34] LABS: ALANINE AMINOTRANSFERASE 24 U/L (9-52); ALBUMIN 4.9 g/dL (3.5-5.0); ALKALINE PHOSPHATASE 96 U/L (38-126); ANION GAP 11 (5-19); ASPARTATE AMINO TRANSFERASE 17 U/L (14-36); BILIRUBIN,DIRECT 0.1 mg/dL (0.0-0.4); BILIRUBIN,TOTAL 0.3 mg/dL (0.2-1.3); BLOOD UREA NITROGEN 12 mg/dL (7-20); CALCIUM 10.1 mg/dL (8.4-10.2); CARBON DIOXIDE 27 mmol/L (22-30); CHLORIDE 102 mmol/L (98-107); GLUCOSE 100 mg/dL (75-110); SODIUM 139.9 mmol/L (137-145); TOTAL PROTEIN 7.7 g/dL (6.3-8.2)
--- NOTE | 2017-03-28 02:52 | RADIOLOGY REPORT (SQ) ---
EXAM DESCRIPTION: CT LTD RENAL STONE PROTOCOL ON COMPLETED DATE/TIME: 03/28/2017 2:09 am REASON FOR STUDY: right flank pain, n/v/ hx stones . Right lower quadrant pain. COMPARISON: CT abdomen and pelvis 03/22/2017, 03/14/2017. TECHNIQUE: CT scan of the abdomen and pelvis performed without intravenous or oral contrast. Images reviewed with lung, soft tissue, and bone windows. Reconstructed coronal and sagittal MPR images revi ewed. All images stored on PACS. All CT scanners at this facility use dose modulation, iterative reconstruction, and/or weight based d osing when appropriate to reduce radiation dose to as low as reasonably achievable (ALARA). [facility]: Dose Right [facility]: CareDose [facility]: Dose Right [facility]: Teradose 4D [facility]: [employer] RADIATION DOSE: CT Rad equipment meets quality standard of care and radiation dose reduction techniq ues were employed. CTDIvol: 18.9 mGy. DLP: 1092 mGy-cm.mGy. LIMITATIONS: None. FINDINGS: LOWER CHEST: Mild bibasilar atelectasis. No pleural effusion. NON-CONTRASTED LIVER, SPLEEN, ADRENALS: Evaluation limited by lack of IV contrast. No identified sign ificant masses. PANCREAS: No peripancreatic inflammatory changes. GALLBLADDER: No identified stones by CT criteria. No inflammatory changes to suggest cholecystitis. RIGHT KIDNEY AND URETER: Nonobstructing calcifications at the on right kidney measuring up to 6 mm (5 03 Hounsfield units). No hydronephrosis or hydroureter. LEFT KIDNEY AND URETER: No significant calcifications. No hydronephrosis or hydroureter. AORTA AND RETROPERITONEUM: No abdominal aortic aneurysm. No retroperitoneal ma hemorrhage. Oval shap e calcification anterior to the left psoas muscle, may represent a large phlebolith. BOWEL AND PERITONEAL CAVITY: No dilated bowel loops or inflammatory changes. No free fluid. APPENDIX: Normal. PELVIS, BLADDER, AND ABDOMINAL WALL:No abnormal masses. No free fluid. Bladder decompressed. Small f at containing umbilical hernia. BONES: Postsurgical changes with orthopedic hardware placement at L5-S1. Multilevel degenerative jessica nges in the spine IMPRESSION: Nonobstructing right nephrolithiasis. No hydronephrosis. No acute findings in the abdo men or pelvis on unenhanced CT. COMMENT: Quality ID # [id number]: Final reports with documentation of one or more dose reduction techniques (e.g., Automated exposure control, adjustment of the mA and/or kV according to patient size, use of iterative reconstruction technique) TECHNICAL DOCUMENTATION: JOB ID: [id number] [employer]- All Rights Reserved
[2017-03-28] MEDS ORDERED: MORPHINE SULFATE 10 MG/ML INJ IV ONE (03:10)
[2017-03-28] MEDS ORDERED: HYDROCODONE/ACETAMINOPHEN 5-325 MG (6 TAB/ER DISP) PO PRN (03:11)
--- NOTE | 2017-03-28 03:11 | ER Document Report ---
ED GI/ - General Chief Complaint: Abdominal Pain Stated Complaint: ABDOMINAL PAIN Time Seen by Provider: 03/28/17 01:45 Mode of Arrival: Ambulatory Information source: Patient Notes: Patient is a 62-year-old female with a history of kidney stones who presents to the ER today for 1 month of right flank pain radiating around to the right lower abdomen. Patient admits to nausea and occasional vomiting. She denies any diarrhea, fever, chills, dysuria, hematuria. TRAVEL OUTSIDE OF THE [place] IN LAST 30 DAYS: No - Related Data Allergies/Adverse Reactions: No Known Allergies Allergy (Verified 03/22/17 10:06) Past Medical History - General Information source: Patient - Social History Smoking Status: Never Smoker Chew tobacco use (# tins/day): No Frequency of alcohol use: None Drug Abuse: None Family History: Arthritis, CAD, CVA, DM, Hyperlipidemia, Hypertension, Malignancy, Thyroid Disfunction Patient has suicidal ideation: No Patient has homicidal ideation: No - Past Medical History Cardiac Medical History: Reports: Hx Hypertension Pulmonary Medical History: Reports: Hx Asthma Neurological Medical History: Reports: Hx Migraine Endocrine Medical History: Reports: Hx Hypothyroidism Renal/ Medical History: Reports: Hx Kidney Stones. Denies: Hx Peritoneal Dialysis Musculoskeltal Medical History: Reports Hx Arthritis, Reports Hx Muscle Weakness , Reports Hx Musculoskeletal Deformity - ddd multiple back and neck surgeries, Reports Hx Musculoskeletal Trauma - Fractured bilateral clavicle as a child Psychiatric Medical History: Reports: Hx Depression Traumatic Medical History: Reports: Hx Fractures - Bilateral clavicle Past Surgical History: Reports: Hx Hysterectomy, Hx Oral Surgery - [place] teeth , Hx Orthopedic Surgery - Back 2006, BL Knee ARTHROSCOPIC,3 neck surgeries - Immunizations Immunizations up to date: No Hx Diphtheria, Pertussis, Tetanus Vaccination: No - 1999 Review of Systems - Review of Systems Constitutional: No symptoms reported EENT: No symptoms reported Cardiovascular: No symptoms reported Respiratory: No symptoms reported Gastrointestinal: No symptoms reported Genitourinary: See HPI Female Genitourinary: No symptoms reported Musculoskeletal: No symptoms reported Skin: No symptoms reported Hematologic/Lymphatic: No symptoms reported Neurological/Psychological: No symptoms reported Physical Exam - Vital signs Vitals: Temp Pulse Resp BP Pulse Ox 98 F 109 H 18 147/86 H 100 03/28/17 00:01 03/28/17 00:01 03/28/17 00:01 03/28/17 00:01 03/28/17 00:01 - Notes Notes: PHYSICAL EXAMINATION: GENERAL: Uncomfortable appearing, but in no acute distress. HEAD: Atraumatic, normocephalic. EYES: Pupils equal round and reactive to light, extraocular movements intact, sclera anicteric, conjunctiva are normal. NECK: Normal range of motion, supple without lymphadenopathy LUNGS: CTAB and equal. No wheezes rales or rhonchi. HEART: Regular rate and rhythm without murmurs ABDOMEN: Soft, no tenderness. No guarding, no rebound BACK: no vertebral tenderness, normal ROM GI/: mild right CVA tenderness EXTREMITIES: Normal range of motion, no pitting edema. No cyanosis. NEUROLOGICAL: Cranial nerves grossly intact. Normal sensory/motor exams. PSYCH: Normal mood, normal affect. SKIN: Warm, Dry, normal turgor, no rashes or lesions noted Course - Re-evaluation Re-evalutation: 03/28/17 06:42 Lab work unremarkable today, urinalysis negative for infection, does show a little bit of blood, CT renal protocol reports right nonobstructing nephrolithiasis, no ureteral stone appreciated. Patient feels better after pain medication and nausea medication. She has an appointment on Thursday with her urologist. - Vital Signs Vital signs: Temp Pulse Resp BP Pulse Ox 97.8 F 90 16 149/86 H 97 03/28/17 03:51 03/28/17 03:51 03/28/17 03:51 03/28/17 03:51 03/28/17 03:51 - Laboratory Result Diagrams: 03/28/17 02:00 03/28/17 02:00 Laboratory results interpreted by me: 03/28/17 03/28/17 00:55 02:00 Hgb 11.7 L Hct 35.5 L RDW 14.3 H Urine Blood SMALL H Discharge - Discharge Clinical Impression: Kidney stone, Flank pain Condition: Stable Disposition: HOME, SELF-CARE Additional Instructions: Return immediately for any new or worsening symptoms. Follow up with the urologist at your appointment on Thursday. Prescriptions: Ondansetron [Zofran Odt 4 mg Tablet] 4 mg PO Q4HP PRN #30 tab.rapdis PRN Reason: Ketorolac Tromethamine [Toradol 10 mg Tablet] 10 mg PO Q6HP PRN #20 tablet PRN Reason:
[2017-03-28 03:53] VITALS: BP 149/86
== END 2017-03-28 03:53 | disposition home or self-care (01) ==
LOC: ER 00:01
DX: N20.0 Calculus of kidney (principal); R10.9 Unspecified abdominal pain; R11.2 Nausea with vomiting, unspecified; I10 Essential (primary) hypertension; J45.909 Unspecified asthma, uncomplicated
CPT/HCPCS: 99284; 96361; 96374; 96375; 36415; 85025; 80053; 81001; 76380; J1885; J2270; J2405; J7030; A9270

== ENCOUNTER 2017-03-29 20:42 | Emergency (ER) | payer MEDICARE ==
--- NOTE | 2017-03-29 21:10 | ER Document Report ---
ED Medical Screen (RME) - General Chief Complaint: Weakness Stated Complaint: WEAKNESS Time Seen by Provider: 03/29/17 21:07 Mode of Arrival: Medic Information source: Patient Notes: 52-year-old female presented to ED for feeling weak off and on all day with no fever but she states she just has no energy and hurting all over all day. States she has a history of degenerative disc disease insomnia and Neurontin. States she has been nauseated today but denies any vomiting or diarrhea. She also has a history of asthma kidney stones and migraines. Her pulse is 120 in the pit area. Her lungs are clear she is able to speak in full sentences. She states she has never smoked or drank or used drugs I have greeted and performed a rapid initial assessment of this patient. A comprehensive ED assessment and evaluation of the patient, analysis of test results and completion of medical decision making process will be conducted by an additional ED providers. TRAVEL OUTSIDE OF THE [place] IN LAST 30 DAYS: No - Related Data Allergies/Adverse Reactions: No Known Allergies Allergy (Verified 03/22/17 10:06) Past Medical History - Past Medical History Cardiac Medical History: Reports: Hx Hypertension Pulmonary Medical History: Reports: Hx Asthma Neurological Medical History: Reports: Hx Migraine Endocrine Medical History: Reports: Hx Hypothyroidism Renal/ Medical History: Reports: Hx Kidney Stones. Denies: Hx Peritoneal Dialysis Musculoskeltal Medical History: Reports Hx Arthritis, Reports Hx Muscle Weakness , Reports Hx Musculoskeletal Deformity - ddd multiple back and neck surgeries, Reports Hx Musculoskeletal Trauma - Fractured bilateral clavicle as a child Psychiatric Medical History: Reports: Hx Depression Traumatic Medical History: Reports: Hx Fractures - Bilateral clavicle Past Surgical History: Reports: Hx Hysterectomy, Hx Oral Surgery - [place] teeth , Hx Orthopedic Surgery - Back 2006, BL Knee ARTHROSCOPIC,3 neck surgeries - Immunizations Immunizations up to date: No Hx Diphtheria, Pertussis, Tetanus Vaccination: No - 1999 Physical Exam - Vital signs Vitals: Temp Pulse Resp BP Pulse Ox 98.5 F 120 H 12 131/82 H 98 03/29/17 20:56 03/29/17 20:56 03/29/17 20:56 03/29/17 20:56 03/29/17 20:56 Course - Vital Signs Vital signs: Temp Pulse Resp BP Pulse Ox 98.5 F 120 H 12 131/82 H 98 03/29/17 20:56 03/29/17 20:56 03/29/17 20:56 03/29/17 20:56 03/29/17 20:56
--- NOTE | 2017-03-29 21:48 | RADIOLOGY REPORT (SQ) ---
EXAM DESCRIPTION: CHEST PA/LAT COMPLETED DATE/TIME: 03/29/2017 9:41 pm REASON FOR STUDY: weakness body aches COMPARISON: 12/30/2015 EXAM PARAMETERS: NUMBER OF VIEWS: two views TECHNIQUE: Digital Frontal and Lateral radiographic views of the chest acquired. RADIATION DOSE: NA LIMITATIONS: none FINDINGS: LUNGS AND PLEURA: No opacities, masses or pneumothorax. No pleural effusion. MEDIASTINUM AND HILAR STRUCTURES: No masses or contour abnormalities. HEART AND VASCULAR STRUCTURES: Heart normal size. No evidence for failure. BONES: No acute findings. HARDWARE: None in the chest. OTHER: No other significant finding. IMPRESSION: NO ACUTE RADIOGRAPHIC FINDING IN THE CHEST. TECHNICAL DOCUMENTATION: JOB ID: [id number] [employer] - [employer]- All Rights Reserved
[2017-03-29] MEDS ORDERED: NORMAL SALINE 1000 ML 1,000 ML IV ONE (22:00)
[2017-03-29] MEDS ORDERED: PROCHLORPERAZINE EDISYLATE INJ 10 MG/2 ML VIAL IV ONE (22:01)
[2017-03-29] MEDS ORDERED: KETOROLAC TROMETHAMINE INJ/PF 30 MG/1 ML SDV IV ONE (22:01)
[2017-03-29 22:02] LABS: ABSOLUTE BASOPHILS # (AUTO) 0.1 10^3/uL (0.0-0.2); ABSOLUTE EOSINOPHILS # (AUTO) 0.4 10^3/uL (0.0-0.6); ABSOLUTE LYMPHOCYTES (AUTO) 2.4 10^3/uL (0.5-4.7); ABSOLUTE MONOCYTES (AUTO) 0.7 10^3/uL (0.1-1.4); ABSOLUTE NEUT (AUTO) 4.5 10^3/uL (1.7-8.2); EOSINOPHILS % (AUTO) 4.9 % (0-6); HEMATOCRIT 35.5 % (36.0-47.0); HEMOGLOBIN 11.6 g/dL (12.0-15.5); LYMPHOCYTES % (AUTO) 29.4 % (13-45); MEAN CORPUSCULAR HEMOGLOBIN 29.2 pg (27.0-33.4); MEAN CORPUSCULAR HGB CONC 32.8 g/dL (32.0-36.0); MEAN CORPUSCULAR VOLUME 89 fl (80-97); PLATELET COUNT 298 10^3/uL (150-450); RED BLOOD COUNT 3.98 10^6/uL (3.72-5.28); SEGMENTED NEUTROPHILS % (AUTO) 55.7 % (42-78); TOTAL CELLS COUNTED % (AUTO) 100 %; WHITE BLOOD COUNT 8.1 10^3/uL (4.0-10.5)
[2017-03-29 22:18] LABS: ALANINE AMINOTRANSFERASE 27 U/L (9-52); ALBUMIN 4.8 g/dL (3.5-5.0); ALKALINE PHOSPHATASE 89 U/L (38-126); ANION GAP 13 (5-19); ASPARTATE AMINO TRANSFERASE 18 U/L (14-36); BILIRUBIN,DIRECT 0.1 mg/dL (0.0-0.4); BILIRUBIN,TOTAL 0.3 mg/dL (0.2-1.3); BLOOD UREA NITROGEN 11 mg/dL (7-20); CALCIUM 10.2 mg/dL (8.4-10.2); CARBON DIOXIDE 28 mmol/L (22-30); CHLORIDE 102 mmol/L (98-107); GLUCOSE 88 mg/dL (75-110); TOTAL PROTEIN 7.7 g/dL (6.3-8.2)
[2017-03-29] MEDS ORDERED: HALOPERIDOL LACTATE INJ 5 MG/1 ML VIAL IV ONE (22:18)
[2017-03-29 22:25] LABS: BILIRUBIN,URINE NEGATIVE (NEGATIVE); CALCIUM OXALATE CRYSTALS,URINE FEW /HPF; COLOR,URINE YELLOW; GLUCOSE, URINE NEGATIVE (NEGATIVE); KETONES,URINE NEGATIVE (NEGATIVE); LEUKOCYTE ESTERASE,URINE NEGATIVE (NEGATIVE); NITRITE,URINE NEGATIVE (NEGATIVE); PROTEIN,URINE NEGATIVE (NEGATIVE); URINE SPECIFIC GRAVITY 1.016
[2017-03-29 22:33] LABS: URINE AMPHETAMINES SCREEN NEGATIVE; URINE BARBITURATES SCREEN NEGATIVE; URINE BENZODIAZEPINES SCREEN NEGATIVE; URINE COCAINE SCREEN NEGATIVE; URINE MARIJUANA (THC) SCREEN NEGATIVE; URINE METHADONE SCREEN NEGATIVE; URINE PHENCYCLIDINE SCREEN NEGATIVE
[2017-03-29 22:40] LABS: APPEARANCE,URINE CLEAR
[2017-03-29 23:01] VITALS: BP 130/74
--- NOTE | 2017-03-29 23:40 | ER Document Report ---
ED General - General Chief Complaint: Weakness Stated Complaint: WEAKNESS Time Seen by Provider: 03/29/17 21:07 Mode of Arrival: Medic Notes: Patient is a 52-year-old female who presents with multiple complaints including generalized weakness, fatigue and chronic right sided flank pain. She has been evaluated for the right flank pain 3 times in the past [address] scans all of which have been unremarkable with exception of showing a intrarenal kidney stone. Patient denies any chest pain, shortness of breath, nausea, vomiting, fever or altered mental status. She states she just feels generally weak and unwell. She has not seen her general doctor regarding this concern. She denies a history of similar symptoms in the past. Nothing improves or worsens her symptoms. TRAVEL OUTSIDE OF THE [place] IN LAST 30 DAYS: No - Related Data Allergies/Adverse Reactions: No Known Allergies Allergy (Verified 03/22/17 10:06) Past Medical History - General Information source: Patient - Social History Smoking Status: Never Smoker Frequency of alcohol use: None Drug Abuse: None Lives with: Family Family History: Arthritis, CAD, CVA, DM, Hyperlipidemia, Hypertension, Malignancy, Thyroid Disfunction Patient has suicidal ideation: No Patient has homicidal ideation: No - Past Medical History Cardiac Medical History: Reports: Hx Hypertension Pulmonary Medical History: Reports: Hx Asthma Neurological Medical History: Reports: Hx Migraine Endocrine Medical History: Reports: Hx Hypothyroidism Renal/ Medical History: Reports: Hx Kidney Stones. Denies: Hx Peritoneal Dialysis Musculoskeltal Medical History: Reports Hx Arthritis, Reports Hx Muscle Weakness , Reports Hx Musculoskeletal Deformity - ddd multiple back and neck surgeries, Reports Hx Musculoskeletal Trauma - Fractured bilateral clavicle as a child Psychiatric Medical History: Reports: Hx Depression Traumatic Medical History: Reports: Hx Fractures - Bilateral clavicle Past Surgical History: Reports: Hx Hysterectomy, Hx Oral Surgery - [place] teeth , Hx Orthopedic Surgery - Back 2006, BL Knee ARTHROSCOPIC,3 neck surgeries - Immunizations Immunizations up to date: No Hx Diphtheria, Pertussis, Tetanus Vaccination: No - 1999 Review of Systems - Review of Systems Notes: Constitutional: Negative for fever. HENT: Negative for sore throat. Eyes: Negative for visual changes. Cardiovascular: Negative for chest pain. Respiratory: Negative for shortness of breath. Gastrointestinal: Negative for abdominal pain, vomiting or diarrhea. Genitourinary: Negative for dysuria. Musculoskeletal: Negative for back pain. Skin: Negative for rash. Neurological: Negative for headaches, weakness or numbness. 10 point ROS negative except as marked above and in HPI. Physical Exam - Vital signs Vitals: Temp Pulse Resp BP Pulse Ox 98.5 F 120 H 12 131/82 H 98 03/29/17 20:56 03/29/17 20:56 03/29/17 20:56 03/29/17 20:56 03/29/17 20:56 Interpretation: Tachycardic Notes: PHYSICAL EXAMINATION: GENERAL: Well-appearing, well-nourished and in no acute distress. HEAD: Atraumatic, normocephalic. EYES: Pupils equal round and reactive to light, extraocular movements intact, sclera anicteric, conjunctiva are normal. ENT: nares patent, oropharynx clear without exudates. Moist mucous membranes. NECK: Normal range of motion, supple without lymphadenopathy LUNGS: Breath sounds clear to auscultation bilaterally and equal. No wheezes rales or rhonchi. HEART: Regular rate and rhythm without murmurs ABDOMEN: Soft, nontender, normoactive bowel sounds. No guarding, no rebound. No masses appreciated. EXTREMITIES: Normal range of motion, no pitting or edema. No cyanosis. NEUROLOGICAL: No focal neurological deficits. Moves all extremities spontaneously and on command. PSYCH: Normal mood, normal affect. SKIN: Warm, Dry, normal turgor, no rashes or lesions noted. Course - Re-evaluation Re-evalutation: 03/29/17 23:38 Patient presents with multiple vague complaints that did not appear to be concerning for any acute life-threatening pathology. Vitals are within normal limits at triage and at time of discharge. Physical examination is unremarkable. Patient has tolerated oral intake without difficulty. Patient was not noted to be in distress at any point during their ER visit. At this time, based on the reassuring evaluation, I do not suspect an acute ND, pulmonary embolus, aortic dissection, acute intra-abdominal pathology, stroke, or sepsis. Repeat labs are unremarkable. I do not see indication for repeating a CT scan of her abdomen and pelvis she has had 3 of these performed in less than 1 month. These continue to demonstrate a single kidney stone the right kidney which should not be causing pain. Will discharge with return precautions and follow-up recommendations. Verbal discharge instructions given a the bedside and opportunity for questions given. Medication warnings reviewed. Patient is in agreement with this plan and has verbalized understanding of return precautions and the need for primary care follow-up in the next 24-72 hours. - Vital Signs Vital signs: Temp Pulse Resp BP Pulse Ox 98.0 F 99 16 130/74 H 96 03/29/17 22:59 03/29/17 22:59 03/29/17 22:59 03/29/17 22:59 03/29/17 22:59 - Laboratory Result Diagrams: 03/29/17 21:20 03/29/17 21:20 Laboratory results interpreted by me: 03/29/17 03/29/17 21:20 21:20 Hgb 11.6 L Hct 35.5 L Urine Blood SMALL H Urine Urobilinogen 2.0 H - Diagnostic Test Radiology reviewed: Image reviewed, Reports reviewed Radiology results interpreted by me: 03/29/17 23:39 Chest x-ray: No acute infiltrate or pneumothorax Discharge - Discharge Clinical Impression: Generalized weakness, Right flank pain, Dehydration Condition: Good Disposition: HOME, SELF-CARE Additional Instructions: Please return to the emergency room immediately if you experience any concerning symptoms including high fevers, severe headache, chest pain, difficulty breathing, abdominal pain, slurred speech, numbness or weakness in your arms or legs, or any other symptom that concerns you.
--- NOTE | 2017-03-30 06:26 | EKG REPORT ---
SEVERITY:- ABNORMAL ECG - SINUS RHYTHM PROBABLE LEFT ATRIAL ABNORMALITY LEFT VENTRICULAR HYPERTROPHY BORDERLINE PROLONGED QT INTERVAL : Confirmed by: Man Hdz MD 30-Mar-2017 06:25:24
== END 2017-03-30 00:26 | disposition home or self-care (01) ==
LOC: ER 20:42
DX: E86.0 Dehydration (principal); R53.1 Weakness; R10.9 Unspecified abdominal pain; R53.83 Other fatigue
CPT/HCPCS: 93005; 99285; 96361; 96374; 96375; 36415; 84703; 85025; 80053; 81001; 80307; 71046; 93010; J1630; J1885; J0780; J7030

== ENCOUNTER 2017-07-16 15:08 | Emergency (ER) | payer MEDICARE, OTHER ==
[2017-07-16] MEDS ORDERED: ACETAMINOPHEN 325 MG TABLET PO ONE (15:22)
[2017-07-16] MEDS ORDERED: ONDANSETRON 4 MG TAB.RAPDIS PO ONE (15:22)
[2017-07-16] MEDS ORDERED: RINGERS SOLUTION,LACTATED 1,000 ML IV ONE (15:26)
--- NOTE | 2017-07-16 15:26 | ER Document Report ---
ED Medical Screen (RME) - General Chief Complaint: Flank Pain Stated Complaint: RIGHT SIDE BACK PAIN/HEADACHES Time Seen by Provider: 07/16/17 15:19 Notes: RAPID MEDICAL EVALUATION DISCLOSURE I have seen this patient as part of a Rapid Medical Evaluation and, if applicable, placed any initially appropriate orders. The patient will be seen and fully evaluated, including a full history and physical exam, by a provider ( in Main ED or Fast Track) when a room becomes available. 52-year-old female PMH kidney stones here with complaints of right-sided flank/ back pain and right lower quadrant abdominal pain as well as nausea vomiting ongoing for the past 7 days. She has had difficulty keeping down liquids and food. She has not had any dysuria hematuria frequency hesitancy diarrhea. She reports this feels exactly like her right-sided kidney stones she has had in the past. She reports that she "have had many kidney stones on that side". Exam Tachycardic Minimal to No Right Lower Quadrant TTP No Flank Tenderness No CVA Tenderness TRAVEL OUTSIDE OF THE [place] IN LAST 30 DAYS: No - Related Data Allergies/Adverse Reactions: No Known Allergies Allergy (Verified 03/22/17 10:06) Past Medical History - Social History Chew tobacco use (# tins/day): No Frequency of alcohol use: None Drug Abuse: None - Past Medical History Cardiac Medical History: Reports: Hx Hypertension Pulmonary Medical History: Reports: Hx Asthma Neurological Medical History: Reports: Hx Migraine Endocrine Medical History: Reports: Hx Hypothyroidism Renal/ Medical History: Reports: Hx Kidney Stones. Denies: Hx Peritoneal Dialysis Musculoskeltal Medical History: Reports Hx Arthritis, Reports Hx Muscle Weakness , Reports Hx Musculoskeletal Deformity - ddd multiple back and neck surgeries, Reports Hx Musculoskeletal Trauma - Fractured bilateral clavicle as a child Psychiatric Medical History: Reports: Hx Depression Traumatic Medical History: Reports: Hx Fractures - Bilateral clavicle Past Surgical History: Reports: Hx Hysterectomy, Hx Oral Surgery - [place] teeth , Hx Orthopedic Surgery - Back 2006, BL Knee ARTHROSCOPIC,3 neck surgeries - Immunizations Immunizations up to date: No Hx Diphtheria, Pertussis, Tetanus Vaccination: No - 1999 Physical Exam - Vital signs Vitals: Temp Pulse Resp BP Pulse Ox 99.5 F 114 H 16 167/103 H 97 07/16/17 15:13 07/16/17 15:13 07/16/17 15:13 07/16/17 15:13 07/16/17 15:13 Course - Vital Signs Vital signs: Temp Pulse Resp BP Pulse Ox 99.5 F 114 H 16 167/103 H 97 07/16/17 15:13 07/16/17 15:13 07/16/17 15:13 07/16/17 15:13 07/16/17 15:13
[2017-07-16 16:47] LABS: ABSOLUTE BASOPHILS # (AUTO) 0.1 10^3/uL (0.0-0.2); ABSOLUTE EOSINOPHILS # (AUTO) 0.3 10^3/uL (0.0-0.6); ABSOLUTE LYMPHOCYTES (AUTO) 2.7 10^3/uL (0.5-4.7); ABSOLUTE MONOCYTES (AUTO) 0.7 10^3/uL (0.1-1.4); ABSOLUTE NEUT (AUTO) 4.9 10^3/uL (1.7-8.2); EOSINOPHILS % (AUTO) 3.3 % (0-6); HEMATOCRIT 35.4 % (36.0-47.0); HEMOGLOBIN 11.6 g/dL (12.0-15.5); LYMPHOCYTES % (AUTO) 31.1 % (13-45); MEAN CORPUSCULAR HEMOGLOBIN 28.4 pg (27.0-33.4); MEAN CORPUSCULAR HGB CONC 32.6 g/dL (32.0-36.0); MEAN CORPUSCULAR VOLUME 87 fl (80-97); MONOCYTES % (AUTO) 8.2 % (3-13); PLATELET COUNT 294 10^3/uL (150-450); RED BLOOD COUNT 4.07 10^6/uL (3.72-5.28); RED CELL DISTRIBUTION WIDTH 14.6 % (11.5-14.0); SEGMENTED NEUTROPHILS % (AUTO) 56.4 % (42-78); TOTAL CELLS COUNTED % (AUTO) 100 %; WHITE BLOOD COUNT 8.7 10^3/uL (4.0-10.5)
[2017-07-16 16:52] LABS: APPEARANCE,URINE SLIGHTLY-CLOUDY; BILIRUBIN,URINE SMALL (NEGATIVE); COLOR,URINE YELLOW; GLUCOSE, URINE NEGATIVE (NEGATIVE); KETONES,URINE NEGATIVE (NEGATIVE); LEUKOCYTE ESTERASE,URINE NEGATIVE (NEGATIVE); NITRITE,URINE NEGATIVE (NEGATIVE); PROTEIN,URINE NEGATIVE (NEGATIVE); URINE SPECIFIC GRAVITY 1.029
[2017-07-16 17:04] LABS: ALANINE AMINOTRANSFERASE 15 U/L (9-52); ALBUMIN 4.6 g/dL (3.5-5.0); ALKALINE PHOSPHATASE 102 U/L (38-126); ANION GAP 12 (5-19); ASPARTATE AMINO TRANSFERASE 26 U/L (14-36); BILIRUBIN,DIRECT 0.4 mg/dL (0.0-0.4); BILIRUBIN,TOTAL 0.4 mg/dL (0.2-1.3); BLOOD UREA NITROGEN 10 mg/dL (7-20); CARBON DIOXIDE 27 mmol/L (22-30); CHLORIDE 106 mmol/L (98-107); GLUCOSE 85 mg/dL (75-110); POTASSIUM 3.4 mmol/L (3.6-5.0); SODIUM 144.8 mmol/L (137-145); TOTAL PROTEIN 8.1 g/dL (6.3-8.2)
--- NOTE | 2017-07-16 18:01 | ER Document Report ---
ED General - General Chief Complaint: Flank Pain Stated Complaint: RIGHT SIDE BACK PAIN/HEADACHES Time Seen by Provider: 07/16/17 15:19 Mode of Arrival: Ambulatory Information source: Patient Notes: This is a 52-year-old female with a history of kidney stones in the past who presents to the emergency room with 7 days of right flank pain radiating into the groin. She denies fever. TRAVEL OUTSIDE OF THE [place] IN LAST 30 DAYS: No - HPI Onset: Last week Onset/Duration: Gradual Quality of pain: Dull Severity: Moderate Pain Level: 2 Associated symptoms: denies: Chest pain, Fever, Headache, Shortness of breath Exacerbated by: Denies Relieved by: Denies Similar symptoms previously: Yes Recently seen / treated by doctor: No - Related Data Allergies/Adverse Reactions: No Known Allergies Allergy (Verified 03/22/17 10:06) Past Medical History - General Information source: Patient - Social History Smoking Status: Never Smoker Cigarette use (# per day): No Chew tobacco use (# tins/day): No Frequency of alcohol use: None Drug Abuse: None Lives with: Family Family History: Arthritis, CAD, CVA, DM, Hyperlipidemia, Hypertension, Malignancy, Thyroid Disfunction Patient has suicidal ideation: No Patient has homicidal ideation: No - Past Medical History Cardiac Medical History: Reports: Hx Hypertension Pulmonary Medical History: Reports: Hx Asthma Neurological Medical History: Reports: Hx Migraine Endocrine Medical History: Reports: Hx Hypothyroidism Renal/ Medical History: Reports: Hx Kidney Stones. Denies: Hx Peritoneal Dialysis Musculoskeltal Medical History: Reports Hx Arthritis, Reports Hx Muscle Weakness , Reports Hx Musculoskeletal Deformity - ddd multiple back and neck surgeries, Reports Hx Musculoskeletal Trauma - Fractured bilateral clavicle as a child Psychiatric Medical History: Reports: Hx Depression Traumatic Medical History: Reports: Hx Fractures - Bilateral clavicle Past Surgical History: Reports: Hx Hysterectomy, Hx Oral Surgery - [place] teeth , Hx Orthopedic Surgery - Back 2006, BL Knee ARTHROSCOPIC,3 neck surgeries - Immunizations Immunizations up to date: No Hx Diphtheria, Pertussis, Tetanus Vaccination: No - 1999 Review of Systems - Review of Systems Constitutional: denies: Chills, Fever EENT: No symptoms reported Cardiovascular: No symptoms reported Respiratory: No symptoms reported Gastrointestinal: See HPI Genitourinary: No symptoms reported Female Genitourinary: No symptoms reported Musculoskeletal: No symptoms reported Skin: No symptoms reported Hematologic/Lymphatic: No symptoms reported Neurological/Psychological: No symptoms reported Physical Exam - Vital signs Vitals: Temp Pulse Resp BP Pulse Ox 99.5 F 114 H 16 167/103 H 97 07/16/17 15:13 07/16/17 15:13 07/16/17 15:13 07/16/17 15:13 07/16/17 15:13 Notes: Physical exam: GENERAL: 52-year-old female, alert and oriented 3, no acute distress HEAD: Atraumatic, normocephalic. EYES: Pupils equal round and reactive to light, extraocular movements intact, sclera anicteric, conjunctiva are normal. ENT: TMs normal, nares patent, oropharynx clear without exudates. Moist mucous membranes. NECK: Normal range of motion, supple without obvious mass or JVD. LUNGS: Breath sounds clear to auscultation bilaterally and equal. No wheezes rales or rhonchi. HEART: Regular rate and rhythm without murmurs, rubs or gallops. ABDOMEN: Soft, normoactive bowel sounds. No tenderness to palpation. No guarding, no rebound. No masses appreciated. Back: Right CVA tenderness to palpation. EXTREMITIES: Normal range of motion, no pitting or edema. No clubbing or cyanosis. NEUROLOGICAL: Cranial nerves II through XII grossly intact. Normal speech, moving all extremities. PSYCH: Normal mood, normal affect. SKIN: Warm, Dry, normal turgor, no rashes or lesions noted. Course - Vital Signs Vital signs: Temp Pulse Resp BP Pulse Ox 98.5 F 83 18 141/87 H 99 07/16/17 20:30 07/16/17 20:30 07/16/17 20:30 07/16/17 20:30 07/16/17 20:30 - Laboratory Result Diagrams: 07/16/17 16:00 07/16/17 16:00 Laboratory results interpreted by me: 07/16/17 07/16/17 07/16/17 16:00 16:00 16:00 Hgb 11.6 L Hct 35.4 L RDW 14.6 H Potassium 3.4 L Urine Bilirubin SMALL H Urine Urobilinogen 2.0 H - Diagnostic Test Radiology reviewed: Image reviewed, Reports reviewed - CT of the abdomen shows no acute intra-abdominal process. No obvious stones. Discharge - Discharge Clinical Impression: Flank pain Condition: Stable Disposition: HOME, SELF-CARE Additional Instructions: As we discussed, your labs look quite good tonight. The CT scan did not show any large stones. It may miss a small stone. Given that you have had stones before in the past and this is a similar presentation, I would drink plenty of fluids, take ibuprofen, take Percocet for pain unrelieved by the ibuprofen. Take Zofran for nausea. Follow-up with your primary care doctor as planned on Thursday: Bring a copy of today's labs and CT report with you when you go. Return to the emergency room for worsening pain, not tolerating fluids or any concerns or getting worse. The pain medicine you're taking prescribed as a narcotic. There are several important things you should know about this medicine: 1. This medicine contains Tylenol: It is important that you do not take Tylenol (or acetaminophen) while on this medicine. Tylenol is metabolized by the liver and taking too much Tylenol (acetaminophen) can lay to liver damage and even liver failure. 2. Taking narcotics for too long can lead to physical and mental dependence. Take this medicine only if really needed and in the lowest quantity to achieve pain relief. 3. Do not drink alcohol while on this medicine. Alcohol interacts with narcotics and the combination can be dangerous. 4. Do not drive or operate machinery while on this medicine. 5. Narcotics do cause constipation, so drink plenty of fluids and daily stool softeners. Follow-up with a urologist: It is recommended that you follow-up with a urologist: [facility] [place] [facility] [address] [place], [place] [phone] [place] [facility] [address]. [place], [place] [phone] Prescriptions: Ondansetron HCl [Zofran 4 mg Tablet] 1 - 2 tab PO Q4H PRN #10 tablet PRN Reason: Oxycodone HCl/Acetaminophen [Percocet 5-325 mg Tablet] 1 - 2 tab PO ASDIR PRN # 25 tablet PRN Reason:
--- NOTE | 2017-07-16 18:56 | RADIOLOGY REPORT (SQ) ---
EXAM DESCRIPTION: CT LTD RENAL STONE PROTOCOL ON COMPLETED DATE/TIME: 07/16/2017 6:42 pm REASON FOR STUDY: right flank pain COMPARISON: 03/28/2017 TECHNIQUE: CT scan of the abdomen and pelvis performed without intravenous or oral contrast. Images reviewed with lung, soft tissue, and bone windows. Reconstructed coronal and sagittal MPR images revi ewed. All images stored on PACS. All CT scanners at this facility use dose modulation, iterative reconstruction, and/or weight based d osing when appropriate to reduce radiation dose to as low as reasonably achievable (ALARA). [facility]: Dose Right [facility]: CareDose [facility]: Dose Right [facility]: Teradose 4D [facility]: Smart Dotstudioz RADIATION DOSE: mGy. LIMITATIONS: None. FINDINGS: LOWER CHEST: No significant findings. No nodules or infiltrates. NON-CONTRASTED LIVER, SPLEEN, ADRENALS: Evaluation limited by lack of IV contrast. No identified sign ificant masses. PANCREAS: No masses. No peripancreatic inflammatory changes. GALLBLADDER: No identified stones by CT criteria. No inflammatory changes to suggest cholecystitis. RIGHT KIDNEY AND URETER: No suspicious masses. Assessment limited by lack of IV contrast. No signif icant calcifications. No hydronephrosis or hydroureter. LEFT KIDNEY AND URETER: No suspicious masses. Assessment limited by lack of IV contrast. No signifi cant calcifications. No hydronephrosis or hydroureter. AORTA AND RETROPERITONEUM: No aneurysm. No retroperitoneal masses or adenopathy. BOWEL AND PERITONEAL CAVITY: No obvious masses or inflammatory changes. No free fluid. APPENDIX: Not identified. PELVIS, BLADDER, AND ABDOMINAL WALL:No abnormal masses. No free fluid. Bladder normal. BONES: Posterior rods at L5-S1. No osseous lesions. OTHER: No other significant finding. IMPRESSION: NO SIGNIFICANT OR ACUTE PROCESS IN THE ABDOMEN OR PELVIS. COMMENT: Quality ID # [id number]: Final reports with documentation of one or more dose reduction techniques (e.g., Automated exposure control, adjustment of the mA and/or kV according to patient size, use of iterative reconstruction technique) TECHNICAL DOCUMENTATION: JOB ID: [id number] [employer]- All Rights Reserved Reading location - IP/workstation name: [email or web address]
[2017-07-16 20:32] VITALS: BP 141/87
[2017-07-16] MEDS ORDERED: KETOROLAC TROMETHAMINE INJ/PF 30 MG/1 ML SDV IV ONE (20:36)
== END 2017-07-16 20:55 | disposition home or self-care (01) ==
LOC: ER 15:08
DX: R10.9 Unspecified abdominal pain (principal); I10 Essential (primary) hypertension; J45.909 Unspecified asthma, uncomplicated; Z87.442 Personal history of urinary calculi
CPT/HCPCS: 99284; 96361; 96374; 36415; 87086; 83690; 85025; 80053; 81001; 76380; A9270 ×2; J1885; J7120; S0119

== ENCOUNTER → 2017-09-02 | Outpatient (CLI) | payer MEDICARE, OTHER ==
--- NOTE | 2017-09-02 16:06 | WOMENS IMAGING REPORT ---
EXAM DESCRIPTION: BILAT SCREENING MAMMO W/CAD COMPLETED DATE/TIME: 09/02/2017 3:37 pm REASON FOR STUDY: BILATERAL SCREENING MAMMO/Z12.31 Z12.31 ENCNTR SCREEN MAMMOGRAM FOR MALIGNANT JEREMY PLASM OF MIKE COMPARISON: Baseline study TECHNIQUE: Standard craniocaudal and mediolateral oblique views of each breast recorded using [employer] acquisition. LIMITATIONS: None. FINDINGS: No masses, calcifications or architectural distortion. No areas of suspicion. Read with the assistance of CAD. [facility] - R2 Cenova Version 1.3 .[facility] - R2 Cenova Version 1.3 .[facility] Imaging - R2 Cenova Version 2.4 .[facility] - R2 Cenova Version 2.4 .[facility] - R2 Video Manager Version 9.2 IMPRESSION: NORMAL MAMMOGRAM. BIRADS 1. BREAST DENSITY: b. There are scattered areas of fibroglandular density. BIRAD: 1 NEGATIVE RECOMMENDATION: ROUTINE SCREENING Please continue yearly bilateral screening mammography/ tomosynthesis in August 2018 COMMENT: The patient has been notified of the results by letter per SA requirements. Additional no tification policies are in place for contacting patient with suspicious or incomplete findings. Quality ID #[id number]: The [employer] recommends an annual screening mammogram for women aged 40 years or over. This facility utilizes a reminder system to ensure that all patients receive reminder letters, and/or direct phone calls for appointments. This includes reminders for routine scr eening mammograms, diagnostic mammograms, or other Breast Imaging Interventions when appropriate. Th is patient will be placed in the appropriate reminder system. The [employer] (ACR) has developed recommendations for screening MRI of the breast s in certain patient populations, to be used in conjunction with mammography. Breast MRI surveillanc e may be appropriate for women with more than 20% lifetime risk of developing breast cancer as deter mined by genetic testing, significant family history of the disease, or history of mantle radiation f or Hodgkins Disease. ACR Practice Guidelines 2008. TECHNICAL DOCUMENTATION: FINDING NUMBER: (1) ASSESSMENT: (1) JOB ID: [id number] [employer]- All Rights Reserved Reading location - IP/workstation name: [email or web address]
== END ==
LOC: WI 15:14
PROVIDERS: ATTEND Internal Medicine
DX: Z12.31 Encounter for screening mammogram for malignant neoplasm of breast (principal)
CPT/HCPCS: 77067

== ENCOUNTER → 2017-09-04 | Outpatient (CLI) | payer MEDICARE ==
[2017-09-04 11:02] LABS: THYROXINE T4 7.1 ug/dL (5.53-11.0)
[2017-09-04 11:16] LABS: TOTAL T3 1.13 ng/mL (0.970-1.69)
== END ==
LOC: OD 09:26
PROVIDERS: ATTEND Internal Medicine
DX: E05.90 Thyrotoxicosis, unspecified without thyrotoxic crisis or storm (principal)
CPT/HCPCS: 36415; 84436; 84443; 84480

== ENCOUNTER 2017-09-11 02:54 | Emergency (ER) | payer MEDICARE ==
[2017-09-11] MEDS ORDERED: ONDANSETRON HCL INJ/PF 4 MG/2 ML SDV IV ONE (03:46)
[2017-09-11] MEDS ORDERED: NORMAL SALINE 1000 ML 1,000 ML IV ONE (03:46)
[2017-09-11 04:19] LABS: ABSOLUTE EOSINOPHILS # (AUTO) 0.3 10^3/uL (0.0-0.6); ABSOLUTE LYMPHOCYTES (AUTO) 1.7 10^3/uL (0.5-4.7); ABSOLUTE MONOCYTES (AUTO) 0.7 10^3/uL (0.1-1.4); ABSOLUTE NEUT (AUTO) 4.9 10^3/uL (1.7-8.2); BASOPHILS % (AUTO) 0.3 % (0-2); EOSINOPHILS % (AUTO) 3.9 % (0-6); HEMATOCRIT 37.5 % (36.0-47.0); HEMOGLOBIN 12.5 g/dL (12.0-15.5); LYMPHOCYTES % (AUTO) 22.1 % (13-45); MEAN CORPUSCULAR HEMOGLOBIN 29.1 pg (27.0-33.4); MEAN CORPUSCULAR HGB CONC 33.3 g/dL (32.0-36.0); MEAN CORPUSCULAR VOLUME 87 fl (80-97); MONOCYTES % (AUTO) 9.6 % (3-13); PLATELET COUNT 323 10^3/uL (150-450); RED BLOOD COUNT 4.29 10^6/uL (3.72-5.28); RED CELL DISTRIBUTION WIDTH 14.7 % (11.5-14.0); SEGMENTED NEUTROPHILS % (AUTO) 64.1 % (42-78); TOTAL CELLS COUNTED % (AUTO) 100 %; WHITE BLOOD COUNT 7.7 10^3/uL (4.0-10.5)
[2017-09-11 04:29] LABS: ALANINE AMINOTRANSFERASE 13 U/L (9-52); ALBUMIN 4.8 g/dL (3.5-5.0); ALKALINE PHOSPHATASE 95 U/L (38-126); ANION GAP 19 (5-19); ASPARTATE AMINO TRANSFERASE 16 U/L (14-36); BILIRUBIN,DIRECT 0.4 mg/dL (0.0-0.4); BILIRUBIN,TOTAL 0.8 mg/dL (0.2-1.3); BLOOD UREA NITROGEN 14 mg/dL (7-20); CALCIUM 9.9 mg/dL (8.4-10.2); CARBON DIOXIDE 21 mmol/L (22-30); CHLORIDE 106 mmol/L (98-107); GLUCOSE 119 mg/dL (75-110); LIPASE 25.4 U/L (23-300); POTASSIUM 4.4 mmol/L (3.6-5.0); SODIUM 145.6 mmol/L (137-145); TOTAL PROTEIN 8.2 g/dL (6.3-8.2)
[2017-09-11 05:50] LABS: APPEARANCE,URINE SLIGHTLY-CLOUDY; BILIRUBIN,URINE NEGATIVE (NEGATIVE); COLOR,URINE YELLOW; GLUCOSE, URINE NEGATIVE (NEGATIVE); KETONES,URINE NEGATIVE (NEGATIVE); LEUKOCYTE ESTERASE,URINE NEGATIVE (NEGATIVE); NITRITE,URINE NEGATIVE (NEGATIVE); PROTEIN,URINE NEGATIVE (NEGATIVE); URINE SPECIFIC GRAVITY 1.028; UROBILINOGEN,URINE NEGATIVE mg/dL (<2.0)
[2017-09-11] MEDS ORDERED: KETOROLAC TROMETHAMINE INJ/PF 30 MG/1 ML SDV IV ONE (06:19)
[2017-09-11] MEDS ORDERED: METOCLOPRAMIDE HCL INJ/PF 10 MG/2 ML SDV IV ONE (06:19)
[2017-09-11] MEDS ORDERED: DICYCLOMINE HCL 20 MG TABLET PO ONE (06:19)
--- NOTE | 2017-09-11 06:26 | ER Document Report ---
ED General - General Chief Complaint: Nausea/Vomiting/Diarrhea Stated Complaint: NAUSEA/VOMITING/DIARRHEA Time Seen by Provider: 09/11/17 06:04 TRAVEL OUTSIDE OF THE [place] IN LAST 30 DAYS: No - HPI Patient complains to provider of: Nausea vomiting diarrhea abdominal pain Notes: Patient coming in for nausea vomiting diarrhea abdominal pain ongoing for the last 2 days. Patient denies any recent sick contacts denies any recent antibiotics or recent travel. Patient resting company upon my evaluation. Patient states diffuse abdominal pain no exacerbating relieving factors. Patient states whenever she drinks water she has done diffuse amount of diarrhea. Denies any new pets denies any recent antibiotics. Patient in no obvious distress upon my evaluation. - Related Data Allergies/Adverse Reactions: No Known Allergies Allergy (Verified 03/22/17 10:06) Past Medical History - Social History Smoking Status: Unknown if Ever Smoked Family History: Arthritis, CAD, CVA, DM, Hyperlipidemia, Hypertension, Malignancy, Thyroid Disfunction Patient has suicidal ideation: No Patient has homicidal ideation: No - Past Medical History Cardiac Medical History: Reports: Hx Hypertension Pulmonary Medical History: Reports: Hx Asthma Neurological Medical History: Reports: Hx Migraine Endocrine Medical History: Reports: Hx Hypothyroidism Renal/ Medical History: Reports: Hx Kidney Stones. Denies: Hx Peritoneal Dialysis Musculoskeletal Medical History: Reports Hx Arthritis, Reports Hx Muscle Weakness, Reports Hx Musculoskeletal Deformity - ddd multiple back and neck surgeries, Reports Hx Musculoskeletal Trauma - Fractured bilateral clavicle as a child Psychiatric Medical History: Reports: Hx Depression Traumatic Medical History: Reports: Hx Fractures - Bilateral clavicle Past Surgical History: Reports: Hx Hysterectomy, Hx Oral Surgery - [place] teeth , Hx Orthopedic Surgery - Back 2006, BL Knee ARTHROSCOPIC,3 neck surgeries - Immunizations Immunizations up to date: No Hx Diphtheria, Pertussis, Tetanus Vaccination: No - 1999 Review of Systems - Review of Systems Constitutional: No symptoms reported EENT: No symptoms reported Cardiovascular: No symptoms reported Respiratory: No symptoms reported Gastrointestinal: Abdomen distended, Nausea, Vomiting Genitourinary: No symptoms reported Female Genitourinary: No symptoms reported Musculoskeletal: No symptoms reported Skin: No symptoms reported Hematologic/Lymphatic: No symptoms reported Neurological/Psychological: No symptoms reported -: Yes All other systems reviewed and negative Physical Exam - Vital signs Vitals: Temp Pulse Resp BP Pulse Ox 98.8 F 109 H 16 150/86 H 96 09/11/17 02:58 09/11/17 02:58 09/11/17 02:58 09/11/17 02:58 09/11/17 02:58 Interpretation: Normal - General General appearance: Appears well, Alert - HEENT Head: Normocephalic, Atraumatic Eyes: Normal Pupils: PERRL - Respiratory Respiratory status: No respiratory distress Chest status: Nontender Breath sounds: Normal Chest palpation: Normal - Cardiovascular Rhythm: Regular Heart sounds: Normal auscultation Murmur: No - Abdominal Inspection: Normal Distension: No distension Bowel sounds: Normal Tenderness: Nontender Organomegaly: No organomegaly - Back Back: Normal, Nontender - Extremities General upper extremity: Normal inspection, Nontender, Normal color, Normal ROM , Normal temperature General lower extremity: Normal inspection, Nontender, Normal color, Normal ROM , Normal temperature, Normal weight bearing. No: Jesus's sign - Neurological Neuro grossly intact: Yes Cognition: Normal Orientation: AAOx4 Cookie Coma Scale Eye Opening: Spontaneous Cookie Coma Scale Verbal: Oriented Pateros Coma Scale Motor: Obeys Commands Cookie Coma Scale Total: 15 Speech: Normal Motor strength normal: LUE, RUE, LLE, RLE Sensory: Normal - Psychological Associated symptoms: Normal affect, Normal mood - Skin Skin Temperature: Warm Skin Moisture: Dry Skin Color: Normal Course - Re-evaluation Re-evalutation: 09/11/17 14:42 The patient presents with abdominal pain without signs of peritonitis or other life-threatening or serious etiology. The patient appears stable for discharge and has been instructed to return immediately if the symptoms worsen in any way , or in 8-12hr if not improved for re-evaluation. The patient has been instructed to return if the symptoms worsen or change in any way. Slight dehydration patient given IV fluids here. More likely viral gastroenteritis. Patient will be discharged home. - Vital Signs Vital signs: Temp Pulse Resp BP Pulse Ox 97.3 F 103 H 14 133/84 H 96 09/11/17 08:05 09/11/17 08:05 09/11/17 08:05 09/11/17 08:05 09/11/17 08:05 - Laboratory Result Diagrams: 09/11/17 04:02 09/11/17 04:02 Laboratory results interpreted by me: 09/11/17 09/11/17 09/11/17 04:02 04:02 05:17 RDW 14.7 H Sodium 145.6 H Carbon Dioxide 21 L Glucose 119 H Urine Blood SMALL H Discharge - Discharge Clinical Impression: Nausea, vomiting and diarrhea Condition: Good Disposition: HOME, SELF-CARE Instructions: Gastritis ([facility]) Additional Instructions: Your seen today for nausea vomiting diarrhea. More likely have a viral gastroenteritis. Would recommend sticking to a clear liquid diet for the next 24 hours at that advancing diet as tolerated with starchy foods. Please take Bentyl for pain also recommend taking Tylenol Motrin for pain. Zofran and Phenergan for nausea and vomiting. Follow-up with your primary care physician Prescriptions: Dicyclomine HCl [Bentyl 20 mg Tablet] 20 mg PO QID #30 tablet Metoclopramide HCl [Reglan] 5 mg PO Q6 #30 tablet Ondansetron [Zofran Odt] 4 mg PO Q6 PRN #30 tab.rapdis PRN Reason: For Nausea/Vomiting
[2017-09-11 08:07] VITALS: BP 133/84
== END 2017-09-11 08:07 | disposition home or self-care (01) ==
LOC: ER 02:54
DX: R11.2 Nausea with vomiting, unspecified (principal); R19.7 Diarrhea, unspecified; E86.0 Dehydration; R10.84 Generalized abdominal pain; R14.0 Abdominal distension (gaseous); I10 Essential (primary) hypertension; J45.909 Unspecified asthma, uncomplicated; Z87.442 Personal history of urinary calculi; Z90.710 Acquired absence of both cervix and uterus
CPT/HCPCS: 99284; 96361; 51701; 96374; 96375; 36415; 83690; 85025; 80053; 81001; A9270; J1885; J2765; J2405; J7030; J3490

== ENCOUNTER 2017-09-21 12:24 | Emergency (ER) | payer MEDICARE ==
[2017-09-21] MEDS ORDERED: KETOROLAC TROMETHAMINE 60 MG/2 ML SDV IM ONE (12:44)
--- NOTE | 2017-09-21 12:45 | ER Document Report ---
ED Medical Screen (RME) - General Chief Complaint: Flank Pain Stated Complaint: RIGHT FLANK PAIN Time Seen by Provider: 09/21/17 12:42 Notes: 52 years old female presents today with right lower quadrant abdominal pain for the last 2 days. Pain radiated to the right flank. Recently diagnosed as kidney stone. She also have a metal implant and lumbar spines. Denies any dysuria frequency urgency nausea vomiting. Denies any other constitutional symptoms TRAVEL OUTSIDE OF THE [place] IN LAST 30 DAYS: No - Related Data Allergies/Adverse Reactions: No Known Allergies Allergy (Verified 03/22/17 10:06) Past Medical History - Past Medical History Cardiac Medical History: Reports: Hx Hypertension Pulmonary Medical History: Reports: Hx Asthma Neurological Medical History: Reports: Hx Migraine Endocrine Medical History: Reports: Hx Hypothyroidism Renal/ Medical History: Reports: Hx Kidney Stones. Denies: Hx Peritoneal Dialysis Musculoskeltal Medical History: Reports Hx Arthritis, Reports Hx Muscle Weakness , Reports Hx Musculoskeletal Deformity - ddd multiple back and neck surgeries, Reports Hx Musculoskeletal Trauma - Fractured bilateral clavicle as a child Psychiatric Medical History: Reports: Hx Depression Traumatic Medical History: Reports: Hx Fractures - Bilateral clavicle Past Surgical History: Reports: Hx Hysterectomy, Hx Oral Surgery - [place] teeth , Hx Orthopedic Surgery - Back 2006, BL Knee ARTHROSCOPIC,3 neck surgeries - Immunizations Immunizations up to date: No Hx Diphtheria, Pertussis, Tetanus Vaccination: No - 1999 Physical Exam - Vital signs Vitals: Temp Pulse Resp BP Pulse Ox 98.5 F 92 12 151/89 H 100 09/21/17 12:30 09/21/17 12:30 09/21/17 12:30 09/21/17 12:30 09/21/17 12:30 Course - Vital Signs Vital signs: Temp Pulse Resp BP Pulse Ox 98.5 F 92 12 151/89 H 100 09/21/17 12:30 09/21/17 12:30 09/21/17 12:30 09/21/17 12:30 09/21/17 12:30
--- NOTE | 2017-09-21 13:17 | RADIOLOGY REPORT (SQ) ---
EXAM DESCRIPTION: ACUTE ABDOMEN SERIES COMPLETED DATE/TIME: 09/21/2017 1:00 pm REASON FOR STUDY: Right lower quadrant abdominal pain COMPARISON: CT dated 07/16/2017. NUMBER OF VIEWS: Three views. TECHNIQUE: Frontal chest, supine abdomen and upright/decubitus abdomen radiographic images acquired. LIMITATIONS: None. FINDINGS: CHEST: Lungs clear of infiltrates. FREE AIR: None. No abnormal gas collections. BOWEL GAS PATTERN: Nonobstructive pattern. No dilated loops or air fluid levels. CALCIFICATIONS: Stable calcification to the left of the lower lumbar spine secondary to a calcified p hlebolith on previous CT. HARDWARE: Hardware in the lumbosacral spine and in the cervical spine. SOFT TISSUES: No gross mass or suggestion of organomegaly. BONES: No acute fracture. No worrisome bone lesions. OTHER: No other significant finding. IMPRESSION: NO RADIOGRAPHIC EVIDENCE FOR ACUTE ABDOMINAL DISEASE. TECHNICAL DOCUMENTATION: JOB ID: [id number] [employer]- All Rights Reserved Reading location - IP/workstation name: [email or web address]
[2017-09-21 13:33] LABS: ABSOLUTE BASOPHILS # (AUTO) 0.1 10^3/uL (0.0-0.2); ABSOLUTE EOSINOPHILS # (AUTO) 1.1 10^3/uL (0.0-0.6); ABSOLUTE LYMPHOCYTES (AUTO) 2.6 10^3/uL (0.5-4.7); ABSOLUTE MONOCYTES (AUTO) 0.6 10^3/uL (0.1-1.4); ABSOLUTE NEUT (AUTO) 4.2 10^3/uL (1.7-8.2); BASOPHILS % (AUTO) 0.9 % (0-2); EOSINOPHILS % (AUTO) 12.7 % (0-6); HEMOGLOBIN 11.4 g/dL (12.0-15.5); LYMPHOCYTES % (AUTO) 30.3 % (13-45); MEAN CORPUSCULAR HEMOGLOBIN 28.6 pg (27.0-33.4); MEAN CORPUSCULAR HGB CONC 32.6 g/dL (32.0-36.0); MEAN CORPUSCULAR VOLUME 88 fl (80-97); MONOCYTES % (AUTO) 7.4 % (3-13); PLATELET COUNT 267 10^3/uL (150-450); RED BLOOD COUNT 3.99 10^6/uL (3.72-5.28); RED CELL DISTRIBUTION WIDTH 14.9 % (11.5-14.0); SEGMENTED NEUTROPHILS % (AUTO) 48.7 % (42-78); TOTAL CELLS COUNTED % (AUTO) 100 %; WHITE BLOOD COUNT 8.6 10^3/uL (4.0-10.5)
[2017-09-21 13:40] LABS: APPEARANCE,URINE SLIGHTLY-CLOUDY; BILIRUBIN,URINE NEGATIVE (NEGATIVE); COLOR,URINE YELLOW; GLUCOSE, URINE NEGATIVE (NEGATIVE); KETONES,URINE NEGATIVE (NEGATIVE); LEUKOCYTE ESTERASE,URINE NEGATIVE (NEGATIVE); NITRITE,URINE NEGATIVE (NEGATIVE); PROTEIN,URINE NEGATIVE (NEGATIVE); URINE SPECIFIC GRAVITY 1.016; UROBILINOGEN,URINE NEGATIVE mg/dL (<2.0)
[2017-09-21 14:03] LABS: ALANINE AMINOTRANSFERASE 15 U/L (9-52); ALBUMIN 4.2 g/dL (3.5-5.0); ALKALINE PHOSPHATASE 102 U/L (38-126); ANION GAP 12 (5-19); ASPARTATE AMINO TRANSFERASE 19 U/L (14-36); BILIRUBIN,DIRECT 0.3 mg/dL (0.0-0.4); BILIRUBIN,TOTAL 0.4 mg/dL (0.2-1.3); BLOOD UREA NITROGEN 8 mg/dL (7-20); CALCIUM 9.9 mg/dL (8.4-10.2); CARBON DIOXIDE 29 mmol/L (22-30); CHLORIDE 103 mmol/L (98-107); GLUCOSE 94 mg/dL (75-110); LIPASE 35.2 U/L (23-300); POTASSIUM 4.2 mmol/L (3.6-5.0); TOTAL PROTEIN 7.8 g/dL (6.3-8.2)
--- NOTE | 2017-09-21 14:30 | ER Document Report ---
ED General - General Chief Complaint: Flank Pain Stated Complaint: RIGHT FLANK PAIN Time Seen by Provider: 09/21/17 12:42 TRAVEL OUTSIDE OF THE [place] IN LAST 30 DAYS: No - HPI Notes: 52-year-old female presents with right flank pain. Patient describes 2 days gradual onset right back pain and right lower quadrant pain. Worse with motion. Nausea, occasional vomiting. Later indicated it may be going on for a week. No fever, chills or sweats. No dysuria. Has a history of kidney stones in the past. Was seen by physician in triage and had labs and abdominal x-rays ordered. Also received Toradol by physician in triage. My initial evaluation she feels modestly improved, but still complains of pain. Seems to be markedly worse with bending over or rotation. Gradual onset, nonradiating except as described. No other modifying factors, no other associated symptoms, no other provocative or palliative factors. - Related Data Allergies/Adverse Reactions: No Known Allergies Allergy (Verified 03/22/17 10:06) Past Medical History - Social History Smoking Status: Never Smoker Chew tobacco use (# tins/day): No Frequency of alcohol use: None Drug Abuse: None Family History: Arthritis, CAD, CVA, DM, Hyperlipidemia, Hypertension, Malignancy, Thyroid Disfunction Patient has suicidal ideation: No Patient has homicidal ideation: No - Past Medical History Cardiac Medical History: Reports: Hx Hypertension Pulmonary Medical History: Reports: Hx Asthma Neurological Medical History: Reports: Hx Migraine Endocrine Medical History: Reports: Hx Hypothyroidism Renal/ Medical History: Reports: Hx Kidney Stones. Denies: Hx Peritoneal Dialysis Musculoskeletal Medical History: Reports Hx Arthritis, Reports Hx Muscle Weakness, Reports Hx Musculoskeletal Deformity - ddd multiple back and neck surgeries, Reports Hx Musculoskeletal Trauma - Fractured bilateral clavicle as a child Psychiatric Medical History: Reports: Hx Depression Traumatic Medical History: Reports: Hx Fractures - Bilateral clavicle Past Surgical History: Reports: Hx Hysterectomy, Hx Oral Surgery - [place] teeth , Hx Orthopedic Surgery - Back 2006, BL Knee ARTHROSCOPIC,3 neck surgeries - Immunizations Immunizations up to date: No Hx Diphtheria, Pertussis, Tetanus Vaccination: No - 1999 Review of Systems - Review of Systems Notes: Review of systems as in the history of present illness, otherwise negative x 10 systems. Physical Exam - Vital signs Vitals: Temp Pulse Resp BP Pulse Ox 98.5 F 92 12 151/89 H 100 09/21/17 12:30 09/21/17 12:30 09/21/17 12:30 09/21/17 12:30 09/21/17 12:30 - Notes Notes: General: Well developed . HEENT: Normocephalic, atraumatic. Pupils equal round reactive to light. No JVD. Chest: No trauma. Respiratory: Good air exchange, normal excursion. Cardiac: Regular rhythm. No murmurs or gallops. Abdomen: Soft, benign. Nondistended. On distracted examination I am unable to reproduce any significant abdominal tenderness Back: No asymmetry or gross abnormality. Exquisitely reproducible right paralumbar tenderness Motor: Grossly normal power and tone. Neurologic: Alert, nonfocal. Cranial nerves II-12 are intact. Sensation intact. Vascular: Well perfused. Normal peripheral pulses. Skin: No petechiae or purpura. Course - Re-evaluation Re-evalutation: 09/21/17 14:26 Appearing female the after mentioned symptoms. Although differential would include pyelonephritis or stone, I think the reproducibility makes this less likely. She is a relatively benign exam, in the face of normal labs, I think appendicitis or perforated diverticulum is unlikely at this time. Repeat examination shows benign abdomen. Evaluation of her labs show unremarkable CBC and chemistries LFTs and lipase. is negative. Urine is likely contaminated but nondiagnostic. Patient is discharged home with a prescription for muscle relaxers, tramadol, outpatient follow-up. - Vital Signs Vital signs: Temp Pulse Resp BP Pulse Ox 98.5 F 92 12 151/89 H 100 09/21/17 12:30 09/21/17 12:30 09/21/17 12:30 09/21/17 12:30 09/21/17 12:30 - Laboratory Result Diagrams: 09/21/17 13:20 09/21/17 13:20 Laboratory results interpreted by me: 09/21/17 13:20 Hgb 11.4 L Hct 35.0 L RDW 14.9 H Eosinophils % 12.7 H Absolute Eosinophils 1.1 H Discharge - Discharge Clinical Impression: Flank pain Condition: Good Disposition: HOME, SELF-CARE Instructions: Abdominal Pain ([facility]) Prescriptions: Metaxalone [Skelaxin 800 mg Tablet] 800 mg PO ASDIR PRN #20 tablet PRN Reason: Tramadol HCl 50 mg PO Q6 #10 tablet
[2017-09-21 14:40] VITALS: BP 131/78
== END 2017-09-21 14:41 | disposition home or self-care (01) ==
LOC: ER 12:24
DX: R10.9 Unspecified abdominal pain (principal); R10.31 Right lower quadrant pain; M54.9 Dorsalgia, unspecified; R11.2 Nausea with vomiting, unspecified; I10 Essential (primary) hypertension; J45.909 Unspecified asthma, uncomplicated; Z90.710 Acquired absence of both cervix and uterus; Z87.442 Personal history of urinary calculi
CPT/HCPCS: 99284; 96372; 36415; 83690; 85025; 80053; 81001; 74022; J1885

== ENCOUNTER 2017-11-29 07:30 | Emergency (ER) | payer MEDICARE ==
[2017-11-29] MEDS ORDERED: NORMAL SALINE 1000 ML 1,000 ML IV ONE (08:07)
[2017-11-29] MEDS ORDERED: IPRATROPIUM/ALBUTEROL 0.5-2.5 MG/3 ML AMPUL NEB ONE ×2 (08:20→11:09)
[2017-11-29] MEDS ORDERED: MAGNESIUM SULFATE/D5W 1 GM/100 ML RTUPB IV ONE (08:20)
[2017-11-29] MEDS ORDERED: PREDNISONE 20 MG TABLET PO ONE (08:20)
[2017-11-29 08:34] LABS: VENOUS BLOOD BASE EXCESS 0.2 mmol/L; VENOUS BLOOD HCO3 26.5 mmol/L (20-32); VENOUS BLOOD PCO2 49.5 mmHg (35-63); VENOUS BLOOD PH 7.35 (7.30-7.42)
[2017-11-29 08:35] LABS: ABSOLUTE BASOPHILS # (AUTO) 0.1 10^3/uL (0.0-0.2); ABSOLUTE EOSINOPHILS # (AUTO) 0.4 10^3/uL (0.0-0.6); ABSOLUTE LYMPHOCYTES (AUTO) 2.6 10^3/uL (0.5-4.7); ABSOLUTE MONOCYTES (AUTO) 0.7 10^3/uL (0.1-1.4); ABSOLUTE NEUT (AUTO) 2.4 10^3/uL (1.7-8.2); BASOPHILS % (AUTO) 1.2 % (0-2); EOSINOPHILS % (AUTO) 6.7 % (0-6); HEMATOCRIT 32.2 % (36.0-47.0); HEMOGLOBIN 10.7 g/dL (12.0-15.5); MEAN CORPUSCULAR HEMOGLOBIN 29.1 pg (27.0-33.4); MEAN CORPUSCULAR HGB CONC 33.2 g/dL (32.0-36.0); MEAN CORPUSCULAR VOLUME 88 fl (80-97); MONOCYTES % (AUTO) 10.8 % (3-13); PLATELET COUNT 285 10^3/uL (150-450); RED BLOOD COUNT 3.67 10^6/uL (3.72-5.28); RED CELL DISTRIBUTION WIDTH 14.4 % (11.5-14.0); SEGMENTED NEUTROPHILS % (AUTO) 39.3 % (42-78); TOTAL CELLS COUNTED % (AUTO) 100 %; WHITE BLOOD COUNT 6.1 10^3/uL (4.0-10.5)
[2017-11-29 08:59] LABS: ANION GAP 6 (5-19); BLOOD UREA NITROGEN 10 mg/dL (7-20); CARBON DIOXIDE 28 mmol/L (22-30); CHLORIDE 106 mmol/L (98-107); GLUCOSE 104 mg/dL (75-110); POTASSIUM 4.4 mmol/L (3.6-5.0); SODIUM 140.3 mmol/L (137-145)
--- NOTE | 2017-11-29 09:01 | RADIOLOGY REPORT (SQ) ---
EXAM DESCRIPTION: CHEST 2 VIEWS COMPLETED DATE/TIME: 11/29/2017 8:53 am REASON FOR STUDY: Shortness of breath COMPARISON: 03/29/2017 and earlier EXAM PARAMETERS: NUMBER OF VIEWS: two views TECHNIQUE: Digital Frontal and Lateral radiographic views of the chest acquired. RADIATION DOSE: NA LIMITATIONS: none FINDINGS: LUNGS AND PLEURA: No opacities, masses or pneumothorax. No pleural effusion. MEDIASTINUM AND HILAR STRUCTURES: No masses or contour abnormalities. HEART AND VASCULAR STRUCTURES: Heart normal size. No evidence for failure. BONES: No acute findings. HARDWARE: Incompletely visualized cervical spinal fusion hardware. OTHER: No other significant finding. IMPRESSION: NO ACUTE RADIOGRAPHIC FINDING IN THE CHEST. TECHNICAL DOCUMENTATION: JOB ID: [id number] [employer]- All Rights Reserved Reading location - IP/workstation name: [email or web address]
--- NOTE | 2017-11-29 09:05 | RADIOLOGY REPORT (SQ) ---
EXAM DESCRIPTION: CERV SP 4 OR 5 VIEWS COMPLETED DATE/TIME: 11/29/2017 8:53 am REASON FOR STUDY: left arm numbness COMPARISON: None. NUMBER OF VIEWS: Five views. TECHNIQUE: AP, lateral, obliques and odontoid radiographic images acquired of the cervical spine. LIMITATIONS: None. FINDINGS: MINERALIZATION: Normal. ALIGNMENT: Anatomic. VERTEBRAE/DISCS: There is evidence of cervical fusion or block vertebra at C5-6. Anterior cervical fusion with plates, screws, and disc interspacer at C4-5. Cervical spondylosis C3-4 and C6-7. FORAMINA: No osteophytes or foraminal narrowing. LATERAL AND POSTERIOR ELEMENTS: Facets, lateral masses and spinous processes without significant find ings. HARDWARE: None in the spine. SOFT TISSUES: No masses or calcifications. Lung apices clear. OTHER: No other significant finding. IMPRESSION: Status post anterior cervical fusion C4-5. Block vertebra at C5-6. TECHNICAL DOCUMENTATION: JOB ID: [id number] [employer]- All Rights Reserved Reading location - IP/workstation name: [email or web address]
[2017-11-29] MEDS ORDERED: ALBUTEROL SULFATE 0.083% NEB 2.5 MG/3 ML AMPUL NEB ONE (09:15)
[2017-11-29] MEDS ORDERED: ALBUTEROL SULFATE HFA (90 MCG/PUFF) 8 GM MDI (1 MDI/ER DISP) IH ONE (11:43)
--- NOTE | 2017-11-29 11:49 | ER Document Report ---
ED General - General Chief Complaint: Breathing Difficulty Stated Complaint: SHOULDER PAIN Time Seen by Provider: 11/29/17 07:49 TRAVEL OUTSIDE OF THE [place] IN LAST 30 DAYS: No - HPI Patient complains to provider of: Difficulty breathing left shoulder pain Notes: Patient coming in for evaluation of difficulty breathing and left shoulder pain. Patient states numbness and tingling in the left shoulder ongoing for approximately last 3 weeks patient states also having issues along with that of an MRI in 2016 showing a rotator cuff tear. 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 Patient denies history of COPD or asthma. Patient otherwise is resting comfortably slightly tachycardic upon my evaluation. Patient states she has been compliant with all of her medications. I reviewed the patient's medications shows multiple narcotics and currently under pain control. Patient denies any trauma - Related Data Allergies/Adverse Reactions: No Known Allergies Allergy (Verified 03/22/17 10:06) Past Medical History - Social History Smoking Status: Never Smoker Chew tobacco use (# tins/day): No Frequency of alcohol use: None Drug Abuse: None Family History: Arthritis, CAD, CVA, DM, Hyperlipidemia, Hypertension, Malignancy, Thyroid Disfunction Patient has suicidal ideation: No Patient has homicidal ideation: No - Past Medical History Cardiac Medical History: Reports: Hx Hypertension Pulmonary Medical History: Reports: Hx Asthma Neurological Medical History: Reports: Hx Migraine Endocrine Medical History: Reports: Hx Hypothyroidism Renal/ Medical History: Reports: Hx Kidney Stones. Denies: Hx Peritoneal Dialysis Musculoskeletal Medical History: Reports Hx Arthritis, Reports Hx Muscle Weakness, Reports Hx Musculoskeletal Deformity - ddd multiple back and neck surgeries, Reports Hx Musculoskeletal Trauma - Fractured bilateral clavicle as a child Psychiatric Medical History: Reports: Hx Depression Traumatic Medical History: Reports: Hx Fractures - Bilateral clavicle Past Surgical History: Reports: Hx Hysterectomy, Hx Oral Surgery - [place] teeth , Hx Orthopedic Surgery - Back 2006, BL Knee ARTHROSCOPIC,3 neck surgeries - Immunizations Immunizations up to date: No Hx Diphtheria, Pertussis, Tetanus Vaccination: No - 1999 Review of Systems - Review of Systems Constitutional: No symptoms reported EENT: No symptoms reported Cardiovascular: No symptoms reported Respiratory: Short of breath Gastrointestinal: No symptoms reported Genitourinary: No symptoms reported Female Genitourinary: No symptoms reported Musculoskeletal: Other - Left shoulder pain Skin: No symptoms reported Hematologic/Lymphatic: No symptoms reported Neurological/Psychological: No symptoms reported -: Yes All other systems reviewed and negative Physical Exam - Vital signs Vitals: Temp Pulse BP Pulse Ox 98.7 F 132 H 152/71 H 98 11/29/17 07:36 11/29/17 07:36 10 07:36 11/29/17 07:36 Interpretation: Normal - General General appearance: Appears well, Alert - HEENT Head: Normocephalic, Atraumatic Eyes: Normal Pupils: PERRL - Respiratory Respiratory status: No respiratory distress Chest status: Nontender Breath sounds: Normal Chest palpation: Normal - Cardiovascular Rhythm: Regular Heart sounds: Normal auscultation Murmur: No - Abdominal Inspection: Normal Distension: No distension Bowel sounds: Normal Tenderness: Nontender Organomegaly: No organomegaly - Back Back: Normal, Nontender - Extremities General upper extremity: Normal inspection, Nontender, Normal color, Normal ROM , Normal temperature General lower extremity: Normal inspection, Nontender, Normal color, Normal ROM , Normal temperature, Normal weight bearing. No: Jesus's sign - Neurological Neuro grossly intact: Yes Cognition: Normal Orientation: AAOx4 [place] Coma Scale Eye Opening: Spontaneous [place] Coma Scale Verbal: Oriented [place] Coma Scale Motor: Obeys Commands [place] Coma Scale Total: 15 Speech: Normal Motor strength normal: LUE, RUE, LLE, RLE Sensory: Normal - Psychological Associated symptoms: Normal affect, Normal mood - Skin Skin Temperature: Warm Skin Moisture: Dry Skin Color: Normal Course - Re-evaluation Re-evalutation: 11/29/17 14:54 Patient's heart rate improved after IV fluids and breathing treatments. Wheezing improved with breathing treatments. Patient was able to ambulate around without any signs of hypoxia. She and neck x-ray was obtained showing diffuse disease in the cervical spine more likely this is a contributing factor to patient's numbness in her arm. Recommend patient follow-up with her primary care physician for further evaluation of this issue patient was started on steroids and inhalers. - Vital Signs Vital signs: Temp Pulse Resp BP Pulse Ox 97.7 F 132 H 18 136/86 H 100 11/29/17 11:53 11/29/17 07:36 11/29/17 11:53 11/29/17 11:53 11/29/17 11:53 - Laboratory Result Diagrams: 11/29/17 08:17 11/29/17 08:17 Laboratory results interpreted by me: 11/29/17 08:17 RBC 3.67 L Hgb 10.7 L Hct 32.2 L RDW 14.4 H Seg Neutrophils % 39.3 L Eosinophils % 6.7 H Discharge - Discharge Clinical Impression: Bronchitis Left shoulder pain Qualifiers: Chronicity: acute Qualified Code(s): M25.512 - Pain in left shoulder Condition: Good Disposition: HOME, SELF-CARE Instructions: Bronchitis (OM), Dyspnea, Nonspecific (OM), Exercise Program for the Shoulder ([facility]) Additional Instructions: Chest x-rays not showing signs of acute infection. Your symptoms are more consistent with her underlying bronchitis. I recommend using the inhaler that we gave you here in the ER 2 puffs every 4 hours as needed for shortness of breath along with taking the steroids as prescribed. I would highly recommend following up with your primary care physician pain control management for your left shoulder pain. At this time your x-rays do show some signs of cervical spine pathology which can be adding to the numbness and tingling and pain in the left shoulder otherwise your laboratory studies not show any signs of affection cardiac damage or any other critical pathology. Please avoid any smoking secondhand her primary return to ER symptoms worsen. Drink plenty of fluids to stay well-hydrated. Prescriptions: Prednisone [Deltasone] 60 mg PO DAILY #24 tablet Forms: Return to Work Referrals: IFEANYI LENNON FNP-C [Primary Care Provider] - Follow up as needed
[2017-11-29 12:05] VITALS: BP 136/86
--- NOTE | 2017-11-29 18:49 | EKG REPORT ---
SEVERITY:- ABNORMAL ECG - SINUS TACHYCARDIA LEFT VENTRICULAR HYPERTROPHY : Confirmed by: Karin Gilbert 29-Nov-2017 18:48:26
== END 2017-11-29 11:56 | disposition home or self-care (01) ==
LOC: ER 07:30
DX: J40 Bronchitis, not specified as acute or chronic (principal); M25.512 Pain in left shoulder; I10 Essential (primary) hypertension; Z87.442 Personal history of urinary calculi
CPT/HCPCS: 93005; 94640 ×2; 99284; 96365; 36415; 83735; 85025; 80048; 84484; 82803; 72050; 71046; 93010; J3475; A9270 ×3; J7030; J3490; J7512; J7620

== ENCOUNTER 2017-12-08 16:23 | Emergency (ER) | payer MEDICARE ==
--- NOTE | 2017-12-08 16:59 | ER Document Report ---
ED Extremity Problem, Lower - General Chief Complaint: Headache Stated Complaint: TOE PAIN Time Seen by Provider: 12/08/17 16:43 Mode of Arrival: Ambulatory Information source: Patient Notes: 52-year-old female presented to ED for a migraine headache that started yesterday after she accidentally kicked the corner of the stairwell causing severe pain to her fourth and fifth toe. She states her fifth toe was kind of pointing funny yesterday but is not today. She states she has a history of migraines degenerative disc disease hypothyroidism and asthma. She states only medical history surgically is spinal fusions and total abdominal hysterectomy. Patient is alert and oriented respirations and rhythm regular nonlabored and walking with a slight limp. TRAVEL OUTSIDE OF THE [place] IN LAST 30 DAYS: No - HPI Patient complains to provider of: Injury, Pain, Swelling Location: 5th Toe Occurred: Yesterday Where: Home Onset/Duration: Sudden, Persistent Quality of pain: Achy, Throbbing Severity: Moderate Pain Level: 4 Context: Stubbed Recent injury: Yes Associated symptoms: Painful ambulation Exacerbated by: Movement, Walking Relieved by: Nothing - Related Data Allergies/Adverse Reactions: No Known Allergies Allergy (Verified 03/22/17 10:06) Past Medical History - General Information source: Patient - Social History Smoking Status: Never Smoker Cigarette use (# per day): No Chew tobacco use (# tins/day): No Smoking Education Provided: No Frequency of alcohol use: None Drug Abuse: None Lives with: Family Family History: Arthritis, CAD, CVA, DM, Hyperlipidemia, Hypertension, Malignancy, Thyroid Disfunction Patient has suicidal ideation: No Patient has homicidal ideation: No - Past Medical History Cardiac Medical History: Reports: Hx Hypertension Pulmonary Medical History: Reports: Hx Asthma EENT Medical History: Reports: None Neurological Medical History: Reports: Hx Migraine Endocrine Medical History: Reports: Hx Hypothyroidism Renal/ Medical History: Reports: Hx Kidney Stones Malignancy Medical History: Reports: None GI Medical History: Reports: None Musculoskeletal Medical History: Reports Hx Arthritis, Reports Hx Muscle Weakness, Reports Hx Musculoskeletal Deformity - ddd multiple back and neck surgeries, Reports Hx Musculoskeletal Trauma - Fractured bilateral clavicle as a child Skin Medical History: Reports None Psychiatric Medical History: Reports: Hx Depression Traumatic Medical History: Reports: Hx Fractures - Bilateral clavicle Infectious Medical History: Reports: None Past Surgical History: Reports: Hx Hysterectomy, Hx Oral Surgery - [place] teeth , Hx Orthopedic Surgery - Back 2006, BL Knee ARTHROSCOPIC,3 neck surgeries - Immunizations Immunizations up to date: No Hx Diphtheria, Pertussis, Tetanus Vaccination: No - 1999 Review of Systems - Review of Systems Constitutional: No symptoms reported EENT: No symptoms reported Cardiovascular: No symptoms reported Respiratory: No symptoms reported Gastrointestinal: No symptoms reported Genitourinary: No symptoms reported Female Genitourinary: No symptoms reported Musculoskeletal: Other - Fifth toe Skin: No symptoms reported Hematologic/Lymphatic: No symptoms reported Neurological/Psychological: Headaches Physical Exam - Vital signs Vitals: Temp Pulse Resp BP Pulse Ox 97.8 F 109 H 18 162/86 H 99 12/08/17 16:29 12/08/17 16:29 12/08/17 16:29 12/08/17 16:29 12/08/17 16:29 Interpretation: Normal - General General appearance: Appears well, Alert - HEENT Head: Normocephalic, Atraumatic Eyes: Normal Pupils: PERRL - Respiratory Respiratory status: No respiratory distress Chest status: Nontender Breath sounds: Normal Chest palpation: Normal - Cardiovascular Rhythm: Regular Heart sounds: Normal auscultation Murmur: No - Abdominal Inspection: Normal Distension: No distension Bowel sounds: Normal Tenderness: Nontender Organomegaly: No organomegaly - Back Back: Normal, Nontender - Extremities General upper extremity: Normal inspection, Nontender, Normal color, Normal ROM , Normal temperature General lower extremity: Normal inspection, Normal color, Normal ROM, Normal temperature, Normal weight bearing. No: Jesus's sign Foot: Tender - Fifth toe right foot, Ecchymosis - Right fifth toe, No evidence of FB. No: Unable to bear weight - Neurological Neuro grossly intact: Yes Cognition: Normal Orientation: AAOx4 [place] Coma Scale Eye Opening: Spontaneous [place] Coma Scale Verbal: Oriented [place] Coma Scale Motor: Obeys Commands [place] Coma Scale Total: 15 Speech: Normal Motor strength normal: LUE, RUE, LLE, RLE Sensory: Normal - Psychological Associated symptoms: Normal affect, Normal mood - Skin Skin Temperature: Warm Skin Moisture: Dry Skin Color: Ecchymosis Location of irregularity: Extremities - Fifth right toe Course - Re-evaluation Re-evalutation: 12/08/17 17:27 Right fifth toe was broken at the proximal phalanx. A picture of the fracture was given to patient. Patient was treated with flor tape and postop shoe. Patient was instructed on elevation ice ibuprofen and follow-up with her pole setter or orthopedic. She also is here for a headache and she was given ibuprofen and Zofran in the emergency room and discharged home with a prescription for Compazine and ibuprofen. Patient was instructed to follow-up with her primary doctor for her chronic migraines. - Vital Signs Vital signs: Temp Pulse Resp BP Pulse Ox 98.6 F 100 20 152/77 H 98 12/08/17 17:28 18 17:28 12/08/17 17:28 12/08/17 17:28 12/08/17 17:28 - Diagnostic Test Radiology reviewed: Image reviewed, Reports reviewed Procedures - Immobilization Right Toe 5th digit Time completed: 17:15 Immobilizer type: Post-op shoe, Other - flor taped Performed by: PCT Post-Proc Neuro Vasc Exam: Normal Alignment checked and good: Yes Discharge - Discharge Clinical Impression: Headache Qualifiers: Headache type: unspecified Headache chronicity pattern: unspecified pattern Intractability: not intractable Qualified Code(s): R51 - Headache Fracture of fifth toe, right, closed Qualifiers: Encounter type: initial encounter Qualified Code(s): S92.501A - Displaced unspecified fracture of right lesser toe(s), initial encounter for closed fracture Condition: Stable Disposition: HOME, SELF-CARE Additional Instructions: HEADACHE: The physician does not feel that the headache you are experiencing has a serious underlying cause. Most headaches are due to emotional stress, with resultant muscle tension (tension headache). Occasionally, headaches are secondary to changes in the blood vessels of the scalp (vascular headache and migraine headache). Sometimes, a headache is the first symptom of another developing illness, such as a viral infection. You have no evidence of stroke, bleeding, meningitis, or other serious cause of your headache. The treatment of headaches varies with the severity and cause of the pain. Not all headaches need pain shots. In fact, there is evidence that using narcotics for headaches may make them worse in the long run. The physician will determine the therapy that's in your best interest. If you develop a fever, if the headache is different from any you've previously experienced, or if the headache progressively worsens, then call your physician at once or go to the emergency room. Fractured Toe You have fractured your toe. Although this fracture doesn't need a cast or splint, emergency evaluation was needed to assess the straightness of the bones and joints. Reduction ("setting") is necessary for toe fractures which are crooked or twisted. A toe fracture will heal in about three weeks. Usually, the fractured toe is taped to the next toe. The second toe acts as a moving splint to protect the broken one. Ice and elevation help during the first 48 hours. You may need crutches at first if walking is painful. When you begin walking, be careful NOT to do things that hurt. If weight bearing is not comfortable within a few days, you may require a special shoe, walking boot, or cast. Call the doctor or return at once if severe swelling, severe pain, or numbness develop in the toe, or if you suspect you may have re-injured it. USE OF DIPHENHYDRAMINE: Diphenhydramine (Benadryl) is an antihistamine and has been recommended to help treat your headache and to prevent side effects of other medications used to treat headaches. The medication can be repeated four times daily. Age Elixir (12.5 mg/tsp) 25 mg pill adult 1-2 tabs Antihistamines may cause drowsiness, especially with the first dose. Do not operate machinery or drive while under the effects of the medication. Do not combine the medication with alcohol, or with any other medication without talking to your doctor. ANTINAUSEA MEDICATION: You have been given a medication to suppress nausea and vomiting. This type of medication can be given as a shot, pill, or suppository. It will usually last for many hours. Pills and shots usually last six to eight hours, suppositories last about 12 hours. For the typical illness, only one or two doses of the medication may be necessary. Mild lightheadedness may occur. This type of medicine can cause drowsiness. Do not drive or operate dangerous machinery while under its influence. Do not mix with alcohol. See your doctor at once if you have muscle spasms or tightness, or uncontrollable motions (particularly of the neck, mouth, or jaw). Persistent vomiting or severe lightheadedness should also be evaluated by the physician. COMPAZINE FOR HEADACHE: You have received therapy for headaches, using Compazine. This treatment is dramatically successful in relieving the headache in about 50 percent of cases. When it works, it provides a rapid method of eliminating the headache without resorting to narcotics (and the problems associated with them). Most patients still feel fully alert after the Compazine, but others may be slightly drowsy. It's best not to drive or work with machinery for six to eight hours. Do not take alcohol or other medication unless you discuss it with the doctor. If you develop tightness and spasms in your muscles, especially the neck and tongue, you should return. This is a side effect which can be treated. ICE & ELEVATION: Apply ice packs frequently against the painful area. Many different schedules are recommended, such as "20 minutes on, 20 minutes off" or "one hour ice, two hours rest." If you need to work, you may need to go longer between ice treatments. You should plan to have the area ice packed AT LEAST one- fourth of the time. The ice should be applied over the wrap, tape, or splint, or over a layer of cloth -- not directly against the skin. Some ice bags have a built-in cloth and can be put directly on the skin. Your injured part should be elevated as much as possible over the next 48 hours. Try to keep the injury above the level of the heart. Avoid use of the injured area. Elevation and rest will decrease the swelling. USE OF AGRA-KLQ-LUDIRCT IBUPROFEN: Ibuprofen (Advil, Nuprin, Medipren, Motrin IB) is a medication for fever and pain control. In addition, it has anti- inflammatory effects which may be beneficial, especially in the treatment of injuries. It's best to take ibuprofen with food. Persons with ulcer disease or allergy to aspirin should notify their physician of this before taking ibuprofen. Ibuprofen can be given every four to six hours, for a total of four doses daily. Age Pain or fever dose Antiinflammatory dose 6-8 yr 200 mg (1 tab) 200 mg (1 tab) 9-11 yr 200 mg (1 tab) 200-400 mg (1-2 tab) 11-14 yr 200-400 mg (1-2 tab) 400 mg (2 tab) 15-adult 400 mg (2 tab) 600 mg (3 tab) Post-Op Shoe You are to use a "post-op shoe," sometimes also called a "bunnion shoe." This shoe helps protect minor fractures, sprains, and other injuries of the toes or foot. You may remove the shoe for bathing. Walk carefully. If you're feeling pain, put less weight on the foot, take smaller steps, or use a cane. If you have a new injury, you may need to use crutches for the first couple of days. If pain still prevents walking after a few days, contact the doctor. If there's unexpected pain in your foot, if blisters or sore spots develop , or if the shoe is physically coming apart, return at once. Remember that you' re welcome to come in at any time to have the fit of the shoe checked and adjusted. FOLLOW-UP CARE: If you have been referred to a physician for follow-up care, call the physician s office for an appointment as you were instructed or within the next two days. If you experience worsening or a significant change in your symptoms, notify the physician immediately or return to the Emergency Department at any time for re-evaluation. Prescriptions: Ibuprofen 600 mg PO Q6HP PRN #20 tablet PRN Reason: Prochlorperazine Maleate [Compazine 10 mg Tablet] 10 mg PO ASDIR PRN #10 tablet PRN Reason: Forms: Elevated Blood Pressure, Return to Work Referrals: IFEANYI LENNON FNP-C [Primary Care Provider] - Follow up as needed JESSIE GTZ MD [ACTIVE STAFF] - Follow up as needed CRYSTAL YAP DPM [ACTIVE STAFF] - Follow up as needed
[2017-12-08] MEDS ORDERED: ONDANSETRON 4 MG TAB.RAPDIS PO ONE (17:04)
[2017-12-08] MEDS ORDERED: IBUPROFEN 400 MG TABLET PO ONE (17:04)
--- NOTE | 2017-12-08 17:07 | RADIOLOGY REPORT (SQ) ---
EXAM DESCRIPTION: FOOT RIGHT COMPLETE COMPLETED DATE/TIME: 12/08/2017 4:57 pm REASON FOR STUDY: Injured toes on door jam yesterday COMPARISON: None. NUMBER OF VIEWS: Three views. TECHNIQUE: AP, lateral and oblique radiographic images acquired of the right foot. LIMITATIONS: None. FINDINGS: MINERALIZATION: Normal. BONES: Nondisplaced transverse fracture proximal phalanx 5th digit JOINTS: No effusions. SOFT TISSUES: No soft tissue swelling. No foreign body. OTHER: No other significant finding. IMPRESSION: Nondisplaced transverse fracture proximal phalanx 5th digit TECHNICAL DOCUMENTATION: JOB ID: [id number] [employer]- All Rights Reserved Reading location - IP/workstation name: [email or web address]
[2017-12-08 17:28] VITALS: BP 152/77
== END 2017-12-08 17:32 | disposition home or self-care (01) ==
LOC: ER 16:23
DX: S92.511A Displaced fracture of proximal phalanx of right lesser toe(s), initial encounter for closed fracture (principal); W22.09XA Striking against other stationary object, initial encounter; Y92.009 Unspecified place in unspecified non-institutional (private) residence as the place of occurrence of the external cause; G43.909 Migraine, unspecified, not intractable, without status migrainosus; J45.909 Unspecified asthma, uncomplicated; I10 Essential (primary) hypertension
CPT/HCPCS: 99284; 73630; A9270 ×2; J3490; S0119

== ENCOUNTER 2018-02-20 07:30 | Emergency (ER) | payer MEDICARE ==
[2018-02-20 07:55] VITALS: BP 152/83
--- NOTE | 2018-02-20 09:08 | RADIOLOGY REPORT (SQ) ---
EXAM DESCRIPTION: WRIST LEFT 3 VIEWS COMPLETED DATE/TIME: 02/20/2018 8:55 am REASON FOR STUDY: unresolved pain COMPARISON: None. NUMBER OF VIEWS: Three views. TECHNIQUE: AP, lateral, and oblique radiographic images acquired of the left wrist. LIMITATIONS: None. FINDINGS: MINERALIZATION: Normal. BONES: No acute fracture or dislocation. No worrisome bone lesions. Normal alignment. SOFT TISSUES: No soft tissue swelling. No foreign body. OTHER: No other significant finding. IMPRESSION: NEGATIVE STUDY OF THE LEFT WRIST. NO RADIOGRAPHIC EVIDENCE OF ACUTE INJURY. TECHNICAL DOCUMENTATION: JOB ID: [id number] [employer]- All Rights Reserved Reading location - IP/workstation name: [email or web address]
--- NOTE | 2018-02-20 09:09 | RADIOLOGY REPORT (SQ) ---
EXAM DESCRIPTION: HAND LEFT 3 VIEWS COMPLETED DATE/TIME: 02/20/2018 8:55 am REASON FOR STUDY: unresolved pain COMPARISON: None. EXAM PARAMETERS: NUMBER OF VIEWS: Three views. TECHNIQUE: AP, lateral and oblique radiographic images acquired of the left hand. LIMITATIONS: None. FINDINGS: MINERALIZATION: Normal. BONES: No acute fracture or dislocation. No worrisome bone lesions. JOINTS: No effusions. SOFT TISSUES: No soft tissue swelling. No foreign body. OTHER: No other significant finding. IMPRESSION: NEGATIVE STUDY OF THE LEFT HAND. NO RADIOGRAPHIC EVIDENCE OF ACUTE INJURY. TECHNICAL DOCUMENTATION: JOB ID: [id number] [employer]- All Rights Reserved Reading location - IP/workstation name: [email or web address]
[2018-02-20] MEDS ORDERED: KETOROLAC TROMETHAMINE 60 MG/2 ML SDV IM ONE (09:14)
[2018-02-20] MEDS ORDERED: PREDNISONE 20 MG TABLET PO ONE (09:14)
--- NOTE | 2018-02-20 09:40 | ER Document Report ---
HPI - HPI Time Seen by Provider: 02/20/18 08:15 Pain Level: 3 Notes: Patient is a 53-year-old female who presents the emergency department with chief complaint of left wrist pain. She reports the pain extends from her left thumb up into her left wrist. She denies any trauma. She reports this is been ongoing for approximately 2 weeks and is getting worse. She has tried aeve-faj-khtrysw Tylenol and ibuprofen without relief. - REPRODUCTIVE Reproductive: DENIES: : - MUSCULOSKELETAL Musculoskeletal: REPORTS: Extremity pain - x2 weeks Past Medical History - General Information source: Patient - Social History Smoking Status: Never Smoker Chew tobacco use (# tins/day): No Frequency of alcohol use: None Drug Abuse: None Family History: Arthritis, CAD, CVA, DM, Hyperlipidemia, Hypertension, Malignancy, Thyroid Disfunction Patient has suicidal ideation: No Patient has homicidal ideation: No - Past Medical History Cardiac Medical History: Reports: Hx Hypertension Pulmonary Medical History: Reports: Hx Asthma Neurological Medical History: Reports: Hx Migraine Endocrine Medical History: Reports: Hx Hypothyroidism Renal/ Medical History: Reports: Hx Kidney Stones. Denies: Hx Peritoneal Dialysis Musculoskeletal Medical History: Reports Hx Arthritis, Reports Hx Muscle Weakness, Reports Hx Musculoskeletal Deformity - ddd multiple back and neck surgeries, Reports Hx Musculoskeletal Trauma - Fractured bilateral clavicle as a child Psychiatric Medical History: Reports: Hx Depression Traumatic Medical History: Reports: Hx Fractures - Bilateral clavicle Past Surgical History: Reports: Hx Hysterectomy, Hx Oral Surgery - [place] teeth, Hx Orthopedic Surgery - Back 2006, BL Knee ARTHROSCOPIC,3 neck surgeries - Immunizations Immunizations up to date: No Hx Diphtheria, Pertussis, Tetanus Vaccination: No - 1999 Vertical Provider Document - CONSTITUTIONAL Notes: PHYSICAL EXAMINATION: GENERAL: Well-appearing, well-nourished and in no acute distress. HEAD: Atraumatic, normocephalic. EYES: Pupils equal round extraocular movements intact, conjunctiva are normal. ENT: Nares patent NECK: Normal range of motion LUNGS: No respiratory distress Musculoskeletal: Normal range of motion, tenderness to palpation to left wrist on the dorsal surface. Cap refill less than 3 seconds, normal radial pulse. Normal motor and sensation distal to area of concern. NEUROLOGICAL: Normal speech, normal gait. PSYCH: Normal mood, normal affect. SKIN: Warm, Dry, normal turgor, no rashes or lesions noted. - INFECTION CONTROL TRAVEL OUTSIDE OF THE [place]. IN LAST 30 DAYS: No Course - Re-evaluation Re-evalutation: 02/20/18 09:49 X-rays negative for any acute fracture or dislocation. Cockup splint was provided per patient request. I did explain to the patient that she does not need to use the splint however if it does bring her comfort she can use it as needed. - Vital Signs Vital signs: Temp Pulse Resp BP Pulse Ox 99.0 F 104 H 152/83 H 98 02/20/18 07:53 02/20/18 07:53 02/20/18 07:53 02/20/18 07:53 Procedures - Immobilization Left wrist Pre-Proc Neuro Vasc Exam: Normal Immobilizer type: Cock-up Post-Proc Neuro Vasc Exam: Normal Alignment checked and good: Yes Discharge - Discharge Clinical Impression: Wrist pain Qualifiers: Laterality: left Qualified Code(s): M25.532 - Pain in left wrist Condition: Stable Disposition: HOME, SELF-CARE Additional Instructions: The x-ray of your hand and wrist were negative for any fracture or dislocation. You may continue to try taking ibuprofen 600 mg every 6 hours for your pain and discomfort. You were given a first dose today of prednisone. Have the prescription filled and start taking your next dose tomorrow as directed. Please follow-up with Dr. Shaffer. He is an orthopedic hand specialist. Call him on Thursday to schedule an appointment. Prescriptions: Cyclobenzaprine HCl [Flexeril 10 mg Tablet] 10 mg PO TIDP PRN #20 tab PRN Reason: Prednisone [Deltasone 10 mg Tablet] 10 mg PO ASDIR PRN 5 Days #15 tablet PRN Reason: Referrals: DANK SHAFFER, [ACTIVE STAFF] - Follow up as needed
== END 2018-02-20 10:09 | disposition home or self-care (01) ==
LOC: ER 07:30
DX: M25.532 Pain in left wrist (principal); I10 Essential (primary) hypertension; J45.909 Unspecified asthma, uncomplicated
CPT/HCPCS: 99283; 96372; 73130; 73110; L3908; J1885; A9270; J7512

== ENCOUNTER 2018-03-14 11:18 | Emergency (ER) | payer MEDICARE ==
--- NOTE | 2018-03-14 12:26 | ER Document Report ---
ED Extremity Problem, Lower - General Mode of Arrival: Ambulatory Information source: Patient TRAVEL OUTSIDE OF THE [place]S. IN LAST 30 DAYS: No <MARQUEZ PARTIDA - Last Filed: 03/14/18 19:43> <DALILA BURGESS - Last Filed: 03/14/18 19:54> - General Chief Complaint: Knee Pain Stated Complaint: KNEE PAIN Time Seen by Provider: 03/14/18 12:16 Notes: Patient is a 53-year-old female who presents to the emergency department today with complaints of right knee pain and left wrist pain. Patient states she has been having the above-mentioned pain for about a month and a half. Patient states she sometimes has difficulty walking secondary to pain. Patient has had previous surgery that included "plates and cartilage" in her right knee in the remote past. Patient states she has numbness and tingling in all 5 of her fingers on the left hand. Patient denies any trauma to both her wrist or knee. (MARQUZE PARTIDA) - Related Data Allergies/Adverse Reactions: No Known Allergies Allergy (Verified 02/20/18 07:49) Past Medical History - General Information source: Patient - Social History Smoking Status: Never Smoker Cigarette use (# per day): No Chew tobacco use (# tins/day): No Frequency of alcohol use: None Drug Abuse: None Family History: Arthritis, CAD, CVA, DM, Hyperlipidemia, Hypertension, Malignancy, Thyroid Disfunction Patient has suicidal ideation: No Patient has homicidal ideation: No - Past Medical History Cardiac Medical History: Reports: Hx Hypertension Pulmonary Medical History: Reports: Hx Asthma Neurological Medical History: Reports: Hx Migraine Endocrine Medical History: Reports: Hx Hypothyroidism Renal/ Medical History: Reports: Hx Kidney Stones Musculoskeletal Medical History: Reports Hx Arthritis, Reports Hx Muscle Weakness, Reports Hx Musculoskeletal Deformity - ddd multiple back and neck surgeries, Reports Hx Musculoskeletal Trauma - Fractured bilateral clavicle as a child Psychiatric Medical History: Reports: Hx Depression Traumatic Medical History: Reports: Hx Fractures - Bilateral clavicle Past Surgical History: Reports: Hx Hysterectomy, Hx Oral Surgery - [place] teeth, Hx Orthopedic Surgery - Back 2006, BL Knee ARTHROSCOPIC,3 neck surgeries - Immunizations Immunizations up to date: No Hx Diphtheria, Pertussis, Tetanus Vaccination: No - 1999 <MARQUEZ PARTIDA - Last Filed: 03/14/18 19:43> Review of Systems - Review of Systems Constitutional: No symptoms reported EENT: No symptoms reported Cardiovascular: No symptoms reported Respiratory: No symptoms reported Gastrointestinal: No symptoms reported Genitourinary: No symptoms reported Female Genitourinary: No symptoms reported Musculoskeletal: See HPI, Joint pain - right knee pain, left wrist pain Skin: No symptoms reported Hematologic/Lymphatic: No symptoms reported Neurological/Psychological: denies: Numbness, Tingling -: Yes All other systems reviewed and negative <MARQUEZ PARTIDA - Last Filed: 03/14/18 19:43> Physical Exam <MARQUEZ PARTIDA - Last Filed: 03/14/18 19:43> - Vital signs Vitals: Temp Pulse Resp BP Pulse Ox 98 F 89 16 152/89 H 98 03/14/18 15:15 03/14/18 15:15 03/14/18 15:15 03/14/18 15:15 03/14/18 15:15 - Notes Notes: PHYSICAL EXAM GENERAL: Alert, interacts well. No acute distress. HEAD: Normocephalic, atraumatic. EYES: Pupils equal, round, and reactive to light. Extraocular movements intact. ENT: Oral mucosa moist, tongue midline. NECK: Full range of motion. Supple. Trachea midline. LUNGS: No respiratory distress. HEART: Regular rate and rhythm. No murmurs, gallops, or rubs. EXTREMITIES: Moves all 4 extremities spontaneously. Medial and lateral joint line tenderness with palpation of the right knee. No ligamentous laxity of the right knee. Positive Kandis test on the left. Negative Phalen's and Tinel 's test. NEUROLOGICAL: Alert and oriented x3. Normal speech. Sensation intact distally. PSYCH: Normal affect, normal mood. SKIN: Warm, dry, normal turgor. No rashes or lesions noted. (MARQUEZ PARTIDA) Course <ERICAFRANKDALILA FELIZ - Last Filed: 03/14/18 19:54> - Re-evaluation Re-evalutation: 03/14/18 19:53 X-ray of the knee is negative for swelling, dislocation, fracture or any acute process. Patient will be placed in an David wrap and on crutches to rest her knee and up as an outpatient with orthopedic surgery. Suspect left wrist pain is coming from de Quervain's tenosynovitis. Instructed on stretches and discharged home. Encouraged to follow-up with Ortho for possible steroid injections or s urgery. 03/14/18 19:54 (DALILA BURGESS) - Vital Signs Vital signs: Temp Pulse Resp BP Pulse Ox 98 F 89 16 152/89 H 98 03/14/18 15:15 03/14/18 15:15 03/14/18 15:15 03/14/18 15:15 03/14/18 15:15 Procedures - Immobilization Right Knee Pre-Proc Neuro Vasc Exam: Normal Immobilizer type: David wrap Performed by: PCT Post-Proc Neuro Vasc Exam: Normal, Unchanged from pre-exam Alignment checked and good: Yes <DALILA BURGESS - Last Filed: 03/14/18 19:54> Discharge <MARQUEZ PARTIDA - Last Filed: 03/14/18 19:43> <DALILA BURGESS - Last Filed: 03/14/18 19:54> - Discharge Clinical Impression: De Quervain's tenosynovitis Right knee pain Qualifiers: Chronicity: acute Qualified Code(s): M25.561 - Pain in right knee Condition: Stable Disposition: HOME, SELF-CARE Additional Instructions: Your wrist pain appears to be coming from something called de Quervain's tenosynovitis. I have printed you out instructions about this. Please follow the stretching exercises listed. Please also follow-up with an orthopedic surgeon as an outpatient for possible steroid injections or other interventions. I do not know what is causing your right knee pain. We have placed you in an David wrap to help support her knee and given new crutches to try and take some weight off of it. It is very important that you follow-up with an orthopedic surgeon as an outpatient for further discussion. They may wish to do an MRI. Forms: Return to Work Referrals: ROSS ZEE MD [ACTIVE STAFF] - Follow up as needed Scribe Attestation: 03/14/18 19:54 I personally performed the services described in the documentation, reviewed and edited the documentation which was dictated to the scribe in my presence, and it accurately records my words and actions. (DALILA BURGESS) Scribe Documentation - Scribe Written by Lilye:: Ben Schwarz, 03/14/[id number] acting as scribe for :: Keaton <MARQUEZ PARTIDA - Last Filed: 03/14/18 19:43>
--- NOTE | 2018-03-14 13:37 | RADIOLOGY REPORT (SQ) ---
EXAM DESCRIPTION: KNEE RIGHT 4 VIEWS COMPLETED DATE/TIME: 03/14/2018 1:22 pm REASON FOR STUDY: right knee pain and weaknees, h/o surgery COMPARISON: None. EXAM PARAMETERS: NUMBER OF VIEWS: Four views. TECHNIQUE: AP, lateral and both oblique radiographic images acquired of the right knee. LIMITATIONS: None. FINDINGS: MINERALIZATION: Normal. BONES: No acute fracture or dislocation. No worrisome bone lesions. JOINTS: No effusion. SOFT TISSUES: No significant soft tissue swelling. No radiopaque foreign body. OTHER: No other significant finding. IMPRESSION: No acute findings. TECHNICAL DOCUMENTATION: JOB ID: [id number] [employer]- All Rights Reserved Reading location - IP/workstation name: [email or web address]
[2018-03-14 15:18] VITALS: BP 152/89
== END 2018-03-14 15:15 | disposition home or self-care (01) ==
LOC: ER 11:18
DX: M25.561 Pain in right knee (principal); Z98.890 Other specified postprocedural states; M65.4 Radial styloid tenosynovitis [de Quervain]; M25.531 Pain in right wrist; I10 Essential (primary) hypertension; J45.909 Unspecified asthma, uncomplicated
CPT/HCPCS: 99283

== ENCOUNTER → 2018-05-07 | Outpatient (CLI) | payer MEDICARE ==
--- NOTE | 2018-05-07 09:57 | RADIOLOGY REPORT (SQ) ---
EXAM DESCRIPTION: KNEE RIGHT 2 VIEWS COMPLETED DATE/TIME: 05/07/2018 9:21 am REASON FOR STUDY: RIGHT MEDIAL KNEE PAIN (M25.561) M25.561 PAIN IN RIGHT KNEE COMPARISON: 03/14/2018 NUMBER OF VIEWS: Two views. TECHNIQUE: AP, lateral radiographic images acquired of the right knee. LIMITATIONS: None. FINDINGS: MINERALIZATION: Normal. BONES: No acute fracture or dislocation. No worrisome bone lesions. JOINT: No effusion. SOFT TISSUES: No soft tissue swelling. No radio-opaque foreign body. OTHER: No other significant finding. IMPRESSION: 1. No significant interval changes since the prior examination dated 03/14/2018. No acu te osseous findings. TECHNICAL DOCUMENTATION: JOB ID: [id number] [email or web address]- All Rights Reserved Reading location - IP/workstation name: [email or web address]
== END ==
LOC: RAD 09:07
PROVIDERS: ATTEND Pain Medicine Pain Medicine
DX: M25.561 Pain in right knee (principal)

== ENCOUNTER 2018-12-15 20:45 | Emergency (ER) | payer MEDICARE ==
--- NOTE | 2018-12-15 22:11 | ER Document Report ---
ED Medical Screen (RME) - General Chief Complaint: Abdominal Pain Stated Complaint: VAGINAL BLEEDING,LOWER ABDOMINAL PAIN Time Seen by Provider: 12/15/18 22:09 Mode of Arrival: Ambulatory Information source: Patient Notes: 53-year-old female patient states she has had suprapubic pain since this evening. She states that after she went to the bathroom she had some blood on the paper and that she looked in the toilet and there was a lot of blood in the toilet. She has had a total hysterectomy. She states she has a history of high blood pressure neck and back fusion and orthoscopic surgery to both knees for torn cartilage I have greeted and performed a rapid initial assessment of this patient. A comprehensive ED assessment and evaluation of the patient, analysis of test results and completion of medical decision making process will be conducted by an additional ED providers. TRAVEL OUTSIDE OF THE [place]. IN LAST 30 DAYS: No - Related Data Allergies/Adverse Reactions: No Known Allergies Allergy (Verified 12/15/18 22:04) Past Medical History - Social History Frequency of alcohol use: None Drug Abuse: None - Past Medical History Cardiac Medical History: Reports: Hx Hypertension Pulmonary Medical History: Reports: Hx Asthma Neurological Medical History: Reports: Hx Migraine Endocrine Medical History: Reports: Hx Hypothyroidism Renal/ Medical History: Reports: Hx Kidney Stones. Denies: Hx Peritoneal Dialysis Musculoskeltal Medical History: Reports Hx Arthritis, Reports Hx Muscle Weakness, Reports Hx Musculoskeletal Deformity - ddd multiple back and neck surgeries, Reports Hx Musculoskeletal Trauma - Fractured bilateral clavicle as a child Psychiatric Medical History: Reports: Hx Depression Traumatic Medical History: Reports: Hx Fractures - Bilateral clavicle Past Surgical History: Reports: Hx Hysterectomy, Hx Oral Surgery - [place] teeth, Hx Orthopedic Surgery - Back 2006, BL Knee ARTHROSCOPIC,3 neck surgeries - Immunizations Immunizations up to date: No Hx Diphtheria, Pertussis, Tetanus Vaccination: No - 1999 Physical Exam - Vital signs Vitals: Temp Pulse Resp BP Pulse Ox 98.1 F 105 H 18 160/94 H 99 12/15/18 20:56 12/15/18 20:56 12/15/18 20:56 12/15/18 20:56 12/15/18 20:56 Course - Vital Signs Vital signs: Temp Pulse Resp BP Pulse Ox 98.1 F 105 H 18 160/94 H 99 12/15/18 20:56 12/15/18 20:56 12/15/18 20:56 12/15/18 20:56 12/15/18 20:56
--- NOTE | 2018-12-15 23:23 | RADIOLOGY REPORT (SQ) ---
EXAM DESCRIPTION: US RETROPERITONEUM COMPLETED DATE/TME: 12/15/2018 22:09 CLINICAL HISTORY: 53 years, Female, Suprapubic pain, history kidney stones, hematuria COMPARISON: None. TECHNIQUE: LIMITATIONS: None. FINDINGS: There are stones in the kidneys bilaterally, the largest within the mid left kidney, measuring 8.7 mm. There is mild left hydronephrosis. There is no hydronephrosis on the right side. The right kidney measures 10.3 cm in length. The left kidney measures 11 cm in length. The abdominal aorta is normal in caliber. IMPRESSION: Bilateral renal stones. Mild left hydronephrosis. If a left ureteral stone is a clinical concern, then a CT of the abdomen and pelvis is recommended for further evaluation. copyright 2010 [employer]- All Rights Reserved
[2018-12-15 23:42] LABS: ABSOLUTE BASOPHILS # (AUTO) 0.1 10^3/uL (0.0-0.2); ABSOLUTE EOSINOPHILS # (AUTO) 0.4 10^3/uL (0.0-0.6); ABSOLUTE LYMPHOCYTES (AUTO) 2.8 10^3/uL (0.5-4.7); ABSOLUTE MONOCYTES (AUTO) 0.8 10^3/uL (0.1-1.4); BASOPHILS % (AUTO) 0.7 % (0-2); EOSINOPHILS % (AUTO) 3.6 % (0-6); HEMATOCRIT 36.1 % (36.0-47.0); HEMOGLOBIN 11.9 g/dL (12.0-15.5); LYMPHOCYTES % (AUTO) 27.8 % (13-45); MEAN CORPUSCULAR HEMOGLOBIN 28.9 pg (27.0-33.4); MEAN CORPUSCULAR HGB CONC 32.8 g/dL (32.0-36.0); MEAN CORPUSCULAR VOLUME 88 fl (80-97); MONOCYTES % (AUTO) 8.1 % (3-13); PLATELET COUNT 328 10^3/uL (150-450); RED BLOOD COUNT 4.11 10^6/uL (3.72-5.28); RED CELL DISTRIBUTION WIDTH 13.7 % (11.5-14.0); SEGMENTED NEUTROPHILS % (AUTO) 59.8 % (42-78); TOTAL CELLS COUNTED % (AUTO) 100 %
[2018-12-15 23:54] LABS: ALBUMIN 4.7 g/dL (3.5-5.0); ALKALINE PHOSPHATASE 106 U/L (38-126); ANION GAP 13 (5-19); ASPARTATE AMINO TRANSFERASE 24 U/L (14-36); BILIRUBIN,TOTAL 0.6 mg/dL (0.2-1.3); BLOOD UREA NITROGEN 5 mg/dL (7-20); CALCIUM 10.2 mg/dL (8.4-10.2); CARBON DIOXIDE 27 mmol/L (22-30); CHLORIDE 101 mmol/L (98-107); GLUCOSE 96 mg/dL (75-110); POTASSIUM 3.1 mmol/L (3.6-5.0); TOTAL PROTEIN 8.3 g/dL (6.3-8.2)
[2018-12-16 00:08] LABS: APPEARANCE,URINE SLIGHTLY-CLOUDY; BILIRUBIN,URINE NEGATIVE (NEGATIVE); COLOR,URINE RED; GLUCOSE, URINE NEGATIVE (NEGATIVE); KETONES,URINE NEGATIVE (NEGATIVE); PROTEIN,URINE 100 mg/dL (NEGATIVE); URINE SPECIFIC GRAVITY 1.008; UROBILINOGEN,URINE NEGATIVE mg/dL (<2.0)
[2018-12-16] MEDS ORDERED: HYDROCODONE/ACETAMINOPHEN 5-325 MG (6 TAB/ER DISP) PO PRN (03:18)
[2018-12-16] MEDS ORDERED: ONDANSETRON ODT 4 MG TAB (6 TAB/ER DISP) PO PRN (03:18)
[2018-12-16] MEDS ORDERED: KETOROLAC TROMETHAMINE 60 MG/2 ML SDV IM ONE (03:18)
[2018-12-16] MEDS ORDERED: POTASSIUM CHLORIDE 10 MEQ CAPSULE.ER PO ONE (03:18)
--- NOTE | 2018-12-16 03:19 | ER Document Report ---
ED GI/ - General Chief Complaint: Abdominal Pain Stated Complaint: VAGINAL BLEEDING,LOWER ABDOMINAL PAIN Time Seen by Provider: 12/15/18 22:09 Primary Care Provider: MAU MANUEL PA [Primary Care Provider] - Follow up as needed Mode of Arrival: Ambulatory Notes: Patient is a 53-year-old female that comes to the emergency department for chief complaint of noticing blood when she went to the bathroom earlier in addition to this she has sharp pain in her lower abdomen worse on the left. She denies flank pain. She does report nausea but denies vomiting. She denies fever/chills. She does have a history of kidney stones, she has had a total hysterectomy, she denies bloody stools. She is not on a blood thinner. TRAVEL OUTSIDE OF THE [place]. IN LAST 30 DAYS: No - Related Data Allergies/Adverse Reactions: No Known Allergies Allergy (Verified 12/15/18 22:04) Past Medical History - General Information source: Patient - Social History Smoking Status: Never Smoker Frequency of alcohol use: None Drug Abuse: None Lives with: Family Family History: Arthritis, CAD, CVA, DM, Hyperlipidemia, Hypertension, Malignan cy, Thyroid Disfunction Patient has suicidal ideation: No Patient has homicidal ideation: No - Past Medical History Cardiac Medical History: Reports: Hx Hypertension Pulmonary Medical History: Reports: Hx Asthma Neurological Medical History: Reports: Hx Migraine Endocrine Medical History: Reports: Hx Hypothyroidism Renal/ Medical History: Reports: Hx Kidney Stones. Denies: Hx Peritoneal Dialysis Musculoskeletal Medical History: Reports Hx Arthritis, Reports Hx Muscle Weakness, Reports Hx Musculoskeletal Deformity - ddd multiple back and neck surgeries, Reports Hx Musculoskeletal Trauma - Fractured bilateral clavicle as a child Psychiatric Medical History: Reports: Hx Depression Traumatic Medical History: Reports: Hx Fractures - Bilateral clavicle Past Surgical History: Reports: Hx Hysterectomy, Hx Oral Surgery - [place] teeth, Hx Orthopedic Surgery - Back 2006, BL Knee ARTHROSCOPIC,3 neck surgeries, back fusion - Immunizations Immunizations up to date: No Hx Diphtheria, Pertussis, Tetanus Vaccination: No - 1999 Review of Systems - Review of Systems Constitutional: No symptoms reported EENT: No symptoms reported Cardiovascular: No symptoms reported Respiratory: No symptoms reported Gastrointestinal: See HPI Genitourinary: See HPI Female Genitourinary: No symptoms reported Musculoskeletal: No symptoms reported Skin: No symptoms reported Hematologic/Lymphatic: No symptoms reported Neurological/Psychological: No symptoms reported Physical Exam - Vital signs Vitals: Temp Pulse Resp BP Pulse Ox 98.1 F 105 H 18 160/94 H 99 12/15/18 20:56 12/15/18 20:56 12/15/18 20:56 12/15/18 20:56 12/15/18 20:56 - Notes Notes: GENERAL: Alert, interacts well. No acute distress. HEAD: Normocephalic, atraumatic. EYES: Pupils equal, round, and reactive to light. Extraocular movements intact. ENT: Oral mucosa moist, tongue midline. Oropharynx unremarkable. Airway patent. LUNGS: Clear to auscultation bilaterally, no wheezes, rales, or rhonchi. No respiratory distress. HEART: Regular rate and rhythm. No murmur ABDOMEN: There is some mild generalized lower abdominal tenderness which is non specific. No guarding. Upper abdomen is benign. GENITOURINARY: Deferred EXTREMITIES: Moves all 4 extremities spontaneously. No edema, normal radial and dorsalis pedis pulses bilaterally. No cyanosis. BACK: No overt CVA tenderness. No cervical, thoracic, lumbar midline tenderness. No saddle anesthesia, normal distal neurovascular exam. Moves all extremities in full range of motion. NEUROLOGICAL: Alert and oriented x3. Normal speech. Cranial nerves II through XII grossly intact. PSYCH: Normal affect, normal mood. SKIN: Warm, dry, normal turgor. No rashes or lesions noted. Course - Re-evaluation Re-evalutation: Patient with some mild generalized lower abdominal tenderness, no guarding. She did not appear to be in distress. She still does report pain and she was given Toradol with good results. No CVA tenderness noted. No fever. I did review work-up including unremarkable CBC, nonspecific imagery with slightly low potassium (this was supplemented and discussed close (, urinalysis does show a lot of hematuria. There is some bacteria and a few white blood cells, no nitrates, no leukocyte esterase, nonspecific. Culture was placed. Ultrasound does show left sided hydronephrosis which is mild and nephrolithiasis is noted. I discussed patient's urinalysis and her ultrasound in detail. I suspect she is passing a stone. She declines CAT scan. Patient will be placed on prophylactic antibiotics because of borderline urinalysis, referred to urology, she will have strict return precautions. Patient states appreciation and agreement. Stable time of discharge. - Vital Signs Vital signs: Temp Pulse Resp BP Pulse Ox 98.3 F 87 18 130/76 H 99 12/16/18 04:22 12/16/18 04:22 12/16/18 04:22 12/16/18 04:22 12/16/18 04:22 - Laboratory Result Diagrams: 12/15/18 23:25 12/15/18 23:25 Laboratory results interpreted by me: 12/15/18 12/15/18 12/15/18 23:25 23:25 23:25 Hgb 11.9 L Potassium 3.1 L BUN 5 L Total Protein 8.3 H Urine Protein 100 H Urine Blood LARGE H Discharge - Discharge Clinical Impression: Hematuria Qualifiers: Hematuria type: gross Qualified Code(s): R31.0 - Gross hematuria Abdominal pain Qualifiers: Abdominal location: lower abdomen, unspecified Qualified Code(s): R10.30 - Lower abdominal pain, unspecified Hydronephrosis Qualifiers: Hydronephrosis type: other Qualified Code(s): N13.39 - Other hydronephrosis Condition: Stable Disposition: HOME, SELF-CARE Additional Instructions: Your symptoms, blood in the urine, and some swelling on the left kidney are most consistent with you currently passing a kidney stone. Take the pain medication as prescribed, nausea medication as prescribed, and take the antibiotics to completion. Follow-up with the urology referral for additional management. Return if you worsen including vomiting, severe worsening pain, fever, or any other concerning or worsening symptoms. [facility] [address] [place], [place] [id number] [facility] [address] [place], [place] [id number] Jeane Rangel MD Doctor in [place], [place] Address: [facility] [address], [place] [address] Prescriptions: Cephalexin Monohydrate [Keflex 500 mg Capsule] 500 mg PO BID 5 Days #10 capsule Oxycodone HCl/Acetaminophen [Percocet 5-325 mg Tablet] 1 - 2 tab PO Q8H PRN #12 tablet PRN Reason: Ondansetron [Zofran Odt 4 mg Tablet] 1 - 2 tab PO Q4H PRN #15 tab.rapdis PRN Reason: For Nausea/Vomiting Forms: Return to Work Referrals: MAU MANUEL PA [Primary Care Provider] - Follow up as needed
[2018-12-16 04:24] VITALS: BP 130/76
== END 2018-12-16 04:28 | disposition home or self-care (01) ==
LOC: ER 20:45
DX: R31.0 Gross hematuria (principal); R10.30 Lower abdominal pain, unspecified; N13.39 Other hydronephrosis; R11.0 Nausea; I10 Essential (primary) hypertension; Z87.442 Personal history of urinary calculi; Z90.710 Acquired absence of both cervix and uterus; Z98.1 Arthrodesis status
CPT/HCPCS: 36415; 76770; 80053; 81001; 85025; J1885

== ENCOUNTER → 2019-01-11 | Outpatient (CLI) | payer MEDICARE, OTHER ==
--- NOTE | 2019-01-11 09:16 | RADIOLOGY REPORT (SQ) ---
EXAM DESCRIPTION: CT ABD/PELVIS COMBO COMPLETED DATE/TIME: 01/11/2019 8:50 am REASON FOR STUDY: R31.0 GROSS HEMATURIA R31.0 GROSS HEMATURIA COMPARISON: 12/15/2018 TECHNIQUE: CT scan of the abdomen and pelvis performed with and without intravenous contrast, and wi thout oral contrast. Contrasted imaging performed helical scanning technique and dynamic intravenous contrast injection. Images reviewed with lung, soft tissue, and bone windows. Reconstructed coronal a nd sagittal MPR images reviewed. Delayed images for evaluation of the urinary system also acquired. A ll images stored on PACS. All CT scanners at this facility use dose modulation, iterative reconstruction, and/or weight based d osing when appropriate to reduce radiation dose to as low as reasonably achievable (ALARA). [facility]: Dose Right [facility]: CareDose [facility]: Dose Right [facility]: Teradose 4D [facility]: Bag Borrow or Steal CONTRAST TYPE AND DOSE: contrast/concentration: Isovue 350.00 mg/ml; Total Contrast Delivered: 100.0 ml; Total Saline Delivered: 70.0 ml RENAL FUNCTION: Creatinine 0.88 RADIATION DOSE: CT Rad equipment meets quality standard of care and radiation dose reduction techniq ues were employed. CTDIvol: 21.0 - 24.3 mGy. DLP: 3910 mGy-cm. . LIMITATIONS: None. FINDINGS: NON-CONTRASTED IMAGING: Punctate bilateral nonobstructing renal calcifications. Scattered pelvic phleboliths. POST-CONTRASTED IMAGING: LOWER CHEST: No acute findings. Enlarged heart. LIVER: Normal size. No masses. No dilated ducts. SPLEEN: Normal size. No focal lesions. PANCREAS: No masses. No significant calcifications. No adjacent inflammation or peripancreatic fluid collections. Pancreatic duct not dilated. GALLBLADDER: No identified stones by CT criteria. No inflammatory changes to suggest cholecystitis. ADRENAL GLANDS: No significant masses or asymmetry. RIGHT KIDNEY AND URETER: No solid masses. No significant calcifications. No hydronephrosis or hyd roureter. LEFT KIDNEY AND URETER: No solid masses. No significant calcifications. No hydronephrosis or hydr oureter. AORTA AND VESSELS: No aneurysm. No dissection. Renal arteries, SMA, celiac without stenosis. RETROPERITONEUM: No retroperitoneal adenopathy, hemorrhage or masses. Calcification along the left g onadal vein likely calcified phleboliths. BOWEL AND PERITONEAL CAVITY: No focal bowel wall thickening. No evidence of intestinal obstruction. APPENDIX: Normal. PELVIS: Decompressed urinary bladder with questionable focal bladder wall thickening along the bladde r base measuring approximately 17 x 0.9 mm (series 51, image 101). No lymphadenopathy. No large vol ume free fluid. ABDOMINAL WALL: No masses. No hernias. BONES: No acute bony abnormality. Posterior fusion hardware at L5-S1. No suspicious lytic or blasti c osseous lesions. T10 hemangioma. OTHER: No other significant finding. IMPRESSION: 1. Few punctate bilateral renal calcifications, likely small stones. No evidence of hy dronephrosis or obstructive uropathy. 2. Questionable focal bladder wall thickening along the bladder base although suboptimal evaluation secondary to incomplete distention. Cystoscopy could be considered for further characterization. 3. No other evidence of acute intra-abdominal/pelvic process. TECHNICAL DOCUMENTATION: JOB ID: [id number] Quality ID # [id number]: Final reports with documentation of one or more dose reduction techniques (e.g., Au tomated exposure control, adjustment of the mA and/or kV according to patient size, use of iterative reconstruction technique) 2010 [employer]- All Rights Reserved Reading location - IP/workstation name: [email or web address]
== END ==
LOC: RAD 08:05
PROVIDERS: ATTEND Urology
DX: N20.0 Calculus of kidney (principal); R10.32 Left lower quadrant pain; R10.31 Right lower quadrant pain
CPT/HCPCS: 74178

== ENCOUNTER 2019-04-20 20:32 | Emergency (ER) | payer MEDICARE ==
--- NOTE | 2019-04-21 00:13 | ER Document Report ---
ED Flu Like - General Chief Complaint: Flu Symptoms Stated Complaint: FLU SYMPTOMS Time Seen by Provider: 04/20/19 23:52 Mode of Arrival: Ambulatory Information source: Patient TRAVEL OUTSIDE OF THE [place] IN LAST 30 DAYS: No - HPI Onset: Other - 3 weeks Timing/Duration: Constant, Persistent Quality of pain: Sharp Severity: Moderate Pain Level: 4 Associated symptoms: Body/muscle aches, Nonproductive cough, Fever, Headache, Rhinnorhea, Sinus pain/drainage, Sore throat, Other - Laryngitis Similar symptoms previously: Yes Recently seen / treated by doctor: Yes - Related Data Allergies/Adverse Reactions: No Known Allergies Allergy (Verified 04/20/19 23:46) Past Medical History - General Information source: Patient - Social History Smoking Status: Never Smoker Frequency of alcohol use: None Drug Abuse: None Lives with: Family Family History: Arthritis, CAD, CVA, DM, Hyperlipidemia, Hypertension, Malignancy, Thyroid Disfunction Patient has suicidal ideation: No Patient has homicidal ideation: No - Past Medical History Cardiac Medical History: Reports: Hx Hypertension Pulmonary Medical History: Reports: Hx Asthma EENT Medical History: Reports: None Neurological Medical History: Reports: Hx Migraine Endocrine Medical History: Reports: Hx Hypothyroidism Renal/ Medical History: Reports: Hx Kidney Stones Malignancy Medical History: Reports: None GI Medical History: Reports: None Musculoskeletal Medical History: Reports Hx Arthritis, Reports Hx Muscle Weakness, Reports Hx Musculoskeletal Deformity - ddd multiple back and neck surgeries, Reports Hx Musculoskeletal Trauma - Fractured bilateral clavicle as a child Skin Medical History: Reports None Psychiatric Medical History: Reports: Hx Depression Traumatic Medical History: Reports: Hx Fractures - Bilateral clavicle Infectious Medical History: Reports: None Past Surgical History: Reports: Hx Hysterectomy, Hx Oral Surgery - [place] teeth, Hx Orthopedic Surgery - Back 2006, BL Knee ARTHROSCOPIC,3 neck surgeries, back fusion - Immunizations Immunizations up to date: No Hx Diphtheria, Pertussis, Tetanus Vaccination: No - 1999 Review of Systems - Review of Systems Constitutional: Chills, Fever, Recent illness EENT: Nose congestion, Nose discharge, Sinus pressure, Sinus discharge, Throat pain, Other - Laryngitis Cardiovascular: No symptoms reported Respiratory: Cough. denies: Sputum Gastrointestinal: No symptoms reported Genitourinary: No symptoms reported Female Genitourinary: No symptoms reported Musculoskeletal: No symptoms reported Skin: No symptoms reported Hematologic/Lymphatic: No symptoms reported Neurological/Psychological: No symptoms reported -: Yes All other systems reviewed and negative Physical Exam - Vital signs Vitals: Temp Pulse Resp BP Pulse Ox 97.9 F 97 18 142/77 H 100 04/20/19 21:25 04/20/19 21:25 04/20/19 21:25 04/20/19 21:25 04/20/19 21:25 Interpretation: Normal - General General appearance: Appears well, Alert - HEENT Head: Normocephalic, Atraumatic Eyes: Normal Pupils: PERRL Ears: Normal External canal: Normal Tympanic membrane: Normal Sinus: Normal Nasal: Purulent discharge, Swelling Mouth/Lips: Normal Mucous membranes: Normal Pharynx: Post nasal drainage Neck: Normal - Respiratory Respiratory status: No respiratory distress Chest status: Nontender Breath sounds: Nonproductive cough Chest palpation: Normal - Cardiovascular Rhythm: Regular Heart sounds: Normal auscultation Murmur: No - Abdominal Inspection: Normal Distension: No distension Bowel sounds: Normal Tenderness: Nontender Organomegaly: No organomegaly - Back Back: Normal, Nontender - Extremities General upper extremity: Normal inspection, Nontender, Normal color, Normal ROM, Normal temperature General lower extremity: Normal inspection, Nontender, Normal color, Normal ROM, Normal temperature, Normal weight bearing. No: Jesus's sign - Neurological Neuro grossly intact: Yes Cognition: Normal Orientation: AAOx4 Cookie Coma Scale Eye Opening: Spontaneous Cookie Coma Scale Verbal: Oriented Cookie Coma Scale Motor: Obeys Commands Cookie Coma Scale Total: 15 Speech: Normal Motor strength normal: LUE, RUE, LLE, RLE Sensory: Normal - Psychological Associated symptoms: Normal affect, Normal mood - Skin Skin Temperature: Warm Skin Moisture: Dry Skin Color: Normal Course - Re-evaluation Re-evalutation: 04/21/19 02:08 After performing a Medical Screening Examination, I estimate there is LOW risk for ACUTE CORONARY SYNDROME, RESPIRATORY FAILURE, SEPSIS OR MENINGITIS, thus I consider the discharge disposition reasonable. I have reevaluated this patient multiple times and no significant life threatening changes are noted. The patient and I have discussed the diagnosis and risks, and we agree with discharging home with close follow-up. We also discussed returning to the Emergency Department immediately if new or worsening symptoms occur. We have discussed the symptoms which are most concerning (e.g., changing or worsening pain, trouble swallowing or breathing, neck stiffness, fever) that necessitate immediate return. - Vital Signs Vital signs: Temp Pulse Resp BP Pulse Ox 97.9 F 95 18 153/90 H 100 04/21/19 01:18 04/21/19 01:18 04/21/19 01:18 04/21/19 01:18 04/21/19 01:18 Discharge - Discharge Clinical Impression: Viral laryngitis URI (upper respiratory infection) Qualifiers: URI type: unspecified viral URI Qualified Code(s): J06.9 - Acute upper respiratory infection, unspecified Condition: Stable Disposition: HOME, SELF-CARE Additional Instructions: UPPER RESPIRATORY ILLNESS: You have a viral infection of the respiratory passages -- a "cold." This common infection causes nasal congestion, drainage, and often sore throat and cough. It is highly contagious. The disease usually lasts about 10 to 14 days. There is no "cure" for the viral infection -- it must run its course. If there is a complication, such as bacterial infection in the nose, sinuses, middle ear, or bronchial tubes, antibiotics may be required. The antibiotics won't affect the virus. Drink plenty of fluids. A humidifier may help. An expectorant medication or decongestant may make you more comfortable. Use acetaminophen or ibuprofen for fever or aches. See the doctor if fever persists over two days, if there is any significant worsening of your symptoms, or if you simply fail to improve as expected. You have been recommended treatment with Flonase which is [id number] 1 spray each nostril twice a day. You could also use salt soda solution gargles. These will help to remove the drainage from the back your throat. Chloraseptic spray was [id number]-uki-[id number] that will also help with your sore throat. Salt and soda solution gargle 1 quart of water 1 tablespoon of salt 1 teaspoon of baking soda Mixed 3 ingredients together and boil for 1 minute Placed in a covered quart jar Use 1/2 ounce of cold solution to gargle 3 times a day USE OF ACETAMINOPHEN (Tylenol): Acetaminophen may be taken for pain relief or fever control. It's much safer than aspirin, offering a wider range of "safe" dosages. It is safe during . Some brand names are Tylenol, Panadol, Datril, Anacin 3, Tempra, and Liquiprin. Acetaminophen can be repeated every four hours. The following are maximum recommended dosages: >89 pounds or adults 650 mg to 900 mg Acetaminophen can be repeated every four hours. Maximum dose not to exceed 4000 mg a day. SMOKING: If you smoke, you should stop smoking. The tar and chemicals in cigarette smoke are harmful. Smoking has been shown to cause: emphysema chronic bronchitis lung cancer mouth and throat cancer stomach and pancreas cancer premature aging defects In addition, smoking increases ear and lung infections in children of smokers. FOLLOW-UP CARE: If you have been referred to a physician for follow-up care, call the physicians office for an appointment as you were instructed or within the next two days. If you experience worsening or a significant change in your symptoms, notify the physician immediately or return to the Emergency Department at any time for re-evaluation. Forms: Elevated Blood Pressure, Return to Work
[2019-04-21 00:36] LABS: A TYPE INFLUENZA AG NEGATIVE (NEGATIVE); B INFLUENZA AG NEGATIVE (NEGATIVE)
[2019-04-21 01:19] VITALS: BP 153/90
== END 2019-04-21 01:24 | disposition home or self-care (01) ==
LOC: ER 20:32
DX: J04.0 Acute laryngitis (principal); J06.9 Acute upper respiratory infection, unspecified; M79.10 Myalgia, unspecified site; R05 Cough; R50.9 Fever, unspecified; R51 Headache; J34.89 Other specified disorders of nose and nasal sinuses; I10 Essential (primary) hypertension; J45.909 Unspecified asthma, uncomplicated
CPT/HCPCS: 87070; 87804; 87880; 99283

== ENCOUNTER 2019-06-07 16:32 | Emergency (ER) | payer MEDICARE ==
[2019-06-07] MEDS ORDERED: METHYLPREDNISOLONE INJ 125 MG/2 ML SDV IV ONE (17:15)
[2019-06-07] MEDS ORDERED: IPRATROPIUM/ALBUTEROL 0.5-2.5 MG/3 ML AMPUL NEB ONE (17:15)
--- NOTE | 2019-06-07 17:16 | ER Document Report ---
ED Respiratory Problem - General Chief Complaint: Chest Pain Stated Complaint: COLD SYMPTOMS Time Seen by Provider: 06/07/19 16:58 Primary Care Provider: SUSHANT MONAE MD [NO LOCAL MD] - Follow up as needed Notes: CHIEF COMPLAINT: Multiple complaints HPI: 54-year-old female with hypertension and asthma history presenting to the emergency department for evaluation of shortness of breath, sore throat, chest tightness over the last week. Patient states that a month ago she developed sinus congestion and cough. Her daughter had same. They saw PCP she was placed on steroids and antibiotic without complete resolution of symptoms. Still feels like she has sinus congestion, mild sore throat over the last week. Patient has been using her inhaler at home at least 3 times a day sometimes more at night to help with coughing and shortness of breath. She has not come back to her PCP for reevaluation of symptoms. Patient states her chest discomfort is actually the tightness from what she believes is her asthma. ROS: See HPI - all other systems were reviewed and are otherwise negative Constitutional: no fever Eyes: no drainage, no blurred vision ENT: no runny nose, + sore throat Cardiovascular: + chest pain Resp: + SOB, + cough GI: no vomiting, no diarrhea, no abdominal pain : no dysuria Integumentary: no rash Allergy: no hives Musculoskeletal: no extremity pain or swelling Neurological: no numbness/tingling, no weakness MEDICATIONS: I agree with the patient medications as charted by the RN. ALLERGIES: I agree with the allergies as charted by the RN. PAST MEDICAL HISTORY/PAST SURGICAL HISTORY: Reviewed and agree as charted by RN. SOCIAL HISTORY: Reviewed and agree as charted by RN. FAMILY HISTORY: No significant familial comorbid conditions directly related to patient complaint EXAM: Reviewed vital signs as charted by RN. CONSTITUTIONAL: Alert and oriented and responds appropriately to questions. Well-appearing; well-nourished, mild distress secondary to shortness of breath HEAD: Normocephalic; atraumatic EYES: PERRL; Conjunctivae clear, sclerae non-icteric ENT: normal nose; no rhinorrhea; moist mucous membranes; pharynx without lesions noted, no uvula edema or deviation, no tonsillar hypertrophy, phonation normal NECK: Supple without meningismus; non-tender; no cervical lymphadenopathy, no masses CARD: RRR; no murmurs, no clicks, no rubs, no gallops; symmetric distal pulses RESP: Normal chest excursion without splinting or tachypnea; breath sounds clear and equal bilaterally; no wheezes, no rhonchi, no rales, pulse oximetry 100% on room air not hypoxic patient appears mildly dyspneic with speaking ABD/GI: Normal bowel sounds; non-distended; soft, non-tender, no rebound, no guarding; no palpable organomegaly or masses. BACK: The back appears normal and is non-tender to palpation, there is no CVA tenderness EXT: Normal ROM in all joints; non-tender to palpation; no cyanosis, no effusions, no edema SKIN: Normal color for age and race; warm; dry; good turgor; no acute lesions noted NEURO: Moves all extremities equally; Motor and sensory function intact PSYCH: The patient's mood and manner are appropriate. Grooming and personal hygiene are appropriate. MDM: 54-year-old female presenting with chest tightness shortness of breath over the last week. Has been sick for approximately a month with upper respiratory symptoms. Will obtain chest x-ray to evaluate for infiltrate. She has no definitive fever here although she states she has had chills at home. Does not have abdominal pain on exam today. Her lung sounds are clear to auscultation b ut she appears mildly dyspneic with speaking. Will give breathing treatment, steroids, plan to send flu and strep swab, basic screening labs including cardiac labs will send coronavirus testing TRAVEL OUTSIDE OF THE [place] IN LAST 30 DAYS: No - Related Data Allergies/Adverse Reactions: No Known Allergies Allergy (Verified 04/20/19 23:46) Home Medications: Tramadol. Neurotonin. Ambien Past Medical History - Social History Smoking Status: Never Smoker Frequency of alcohol use: None Drug Abuse: None Family History: Arthritis, CAD, CVA, DM, Hyperlipidemia, Hypertension, Malignancy, Thyroid Disfunction Patient has suicidal ideation: No Patient has homicidal ideation: No - Past Medical History Cardiac Medical History: Reports: Hx Hypertension Pulmonary Medical History: Reports: Hx Asthma Neurological Medical History: Reports: Hx Migraine Endocrine Medical History: Reports: Hx Hypothyroidism Renal/ Medical History: Reports: Hx Kidney Stones Musculoskeletal Medical History: Reports Hx Arthritis, Reports Hx Muscle Weakness, Reports Hx Musculoskeletal Deformity - ddd multiple back and neck surgeries, Reports Hx Musculoskeletal Trauma - Fractured bilateral clavicle as a child Psychiatric Medical History: Reports: Hx Depression Traumatic Medical History: Reports: Hx Fractures - Bilateral clavicle Past Surgical History: Reports: Hx Hysterectomy, Hx Oral Surgery - [place] teeth, Hx Orthopedic Surgery - Back 2007, BL Knee ARTHROSCOPIC,3 neck surgeries, back fusion - Immunizations Immunizations up to date: No Hx Diphtheria, Pertussis, Tetanus Vaccination: No - 1999 Physical Exam - Vital signs Vitals: Temp Pulse Resp BP Pulse Ox 98.4 F 81 20 131/80 H 100 06/07/19 16:46 06/07/19 16:46 06/07/19 16:46 06/07/19 16:46 06/07/19 16:46 Course - Re-evaluation Re-evalutation: 06/07/19 19:53 Patient lab work does not show acute emergent abnormalities low suspicion for ACS at this time given the month-long symptoms, worse in the last week. Her BNP is negative her troponin is negative her chest x-ray is negative. Patient feels better after breathing treatment and steroids. Not as dyspneic. Lung sounds remain clear to auscultation. Pulse oximetry is 100% on room air. This is more likely asthma related. Will provide patient with a spacer and instructions on use. She is to use her inhaler at home 4 puffs instead of 2 every 4 hours for the next 2 days. Follow-up with PCP. She is aware that she is considered a person under investigation at this time and will self quarantine at home for 14 days or until she has her test results. Aware to return for worsening symptoms - Vital Signs Vital signs: Temp Pulse Resp BP Pulse Ox 98.4 F 81 20 151/83 H 100 06/07/19 16:46 06/07/19 16:46 06/07/19 16:46 06/07/19 19:00 06/07/19 19:01 - Laboratory Result Diagrams: 06/07/19 17:35 06/07/19 17:35 Laboratory results interpreted by me: 06/07/19 17:35 RBC 3.62 L Hgb 10.8 L Hct 32.0 L Discharge - Discharge Clinical Impression: Shortness of breath, Acute bronchospasm Condition: Stable Disposition: HOME, SELF-CARE Additional Instructions: Use the albuterol inhaler with the spacer 4 puffs every 4 hours as needed for shortness of breath or wheezing over the next 2 days. Continue the steroids as prescribed. You are considered a person under investigation at this point, self quarantine at home for 14 days or until you have your testing results as discussed. If you have worsening shortness of breath return for reevaluation otherwise follow-up with your primary care provider for further management Prescriptions: Prednisone [Deltasone 20 mg Tablet] 2 tab PO DAILY 5 Days #10 tablet Albuterol Sulfate [Proair HFA Inhalation Aerosol 8.5 gm MDI] 2 puff IH Q4H PRN #1 mdi PRN Reason: Referrals: SUSHANT MONAE MD [NO LOCAL MD] - Follow up as needed
[2019-06-07] MEDS ORDERED: ONDANSETRON HCL INJ/PF 4 MG/2 ML SDV IV ONE (17:59)
--- NOTE | 2019-06-07 18:12 | RADIOLOGY REPORT (SQ) ---
EXAM DESCRIPTION: CHEST SINGLE VIEW IMAGES COMPLETED DATE/TIME: 06/07/2019 6:01 pm REASON FOR STUDY: sob COMPARISON: 11/29/2017 EXAM PARAMETERS: NUMBER OF VIEWS: One view. TECHNIQUE: Single frontal radiographic view of the chest acquired. RADIATION DOSE: NA LIMITATIONS: None. FINDINGS: LUNGS AND PLEURA: No opacities, masses or pneumothorax. No pleural effusion. MEDIASTINUM AND HILAR STRUCTURES: No masses. Contour normal. HEART AND VASCULAR STRUCTURES: Cardiomegaly, stable finding. Normal vasculature. BONES: No acute findings. HARDWARE: None in the chest. OTHER: No other significant finding. IMPRESSION: 1. No significant interval changes since the prior examination dated 11/29/2017. No acu te findings. 2. Cardiomegaly, stable finding. No evidence for failure. RECOMMENDATIONS: 2. Reading location - IP/workstation name: [email or web address]
[2019-06-07 18:18] LABS: ABSOLUTE BASOPHILS # (AUTO) 0.1 10^3/uL (0.0-0.2); ABSOLUTE EOSINOPHILS # (AUTO) 0.3 10^3/uL (0.0-0.6); ABSOLUTE LYMPHOCYTES (AUTO) 3.3 10^3/uL (0.5-4.7); ABSOLUTE MONOCYTES (AUTO) 0.7 10^3/uL (0.1-1.4); ABSOLUTE NEUT (AUTO) 5.4 10^3/uL (1.7-8.2); BASOPHILS % (AUTO) 0.8 % (0-2); EOSINOPHILS % (AUTO) 3.2 % (0-6); HEMOGLOBIN 10.8 g/dL (12.0-15.5); LYMPHOCYTES % (AUTO) 33.7 % (13-45); MEAN CORPUSCULAR HGB CONC 33.8 g/dL (32.0-36.0); MEAN CORPUSCULAR VOLUME 89 fl (80-97); MONOCYTES % (AUTO) 7.2 % (3-13); PLATELET COUNT 285 10^3/uL (150-450); RED BLOOD COUNT 3.62 10^6/uL (3.72-5.28); RED CELL DISTRIBUTION WIDTH 13.8 % (11.5-14.0); SEGMENTED NEUTROPHILS % (AUTO) 55.1 % (42-78); TOTAL CELLS COUNTED % (AUTO) 100 %; WHITE BLOOD COUNT 9.9 10^3/uL (4.0-10.5)
[2019-06-07 18:38] LABS: ALBUMIN 4.3 g/dL (3.5-5.0); ALKALINE PHOSPHATASE 87 U/L (38-126); ANION GAP 8 (5-19); ASPARTATE AMINO TRANSFERASE 18 U/L (14-36); BILIRUBIN,TOTAL 0.3 mg/dL (0.2-1.3); BLOOD UREA NITROGEN 10 mg/dL (7-20); CALCIUM 9.7 mg/dL (8.4-10.2); CARBON DIOXIDE 25 mmol/L (22-30); CHLORIDE 104 mmol/L (98-107); GLUCOSE 97 mg/dL (75-110); POTASSIUM 4.2 mmol/L (3.6-5.0); TOTAL PROTEIN 7.3 g/dL (6.3-8.2)
[2019-06-07 18:50] LABS: A TYPE INFLUENZA AG NEGATIVE (NEGATIVE); B INFLUENZA AG NEGATIVE (NEGATIVE); NT PRO BNP 100 pg/mL (<125)
[2019-06-07 18:54] LABS: TROPONIN I < 0.012 ng/mL
[2019-06-07] MEDS ORDERED: ACETAMINOPHEN 325 MG TABLET PO ONE (19:36)
[2019-06-07 20:13] VITALS: BP 142/83
--- NOTE | 2019-06-08 07:39 | EKG REPORT ---
SEVERITY:- ABNORMAL ECG - SINUS RHYTHM LEFT VENTRICULAR HYPERTROPHY : Confirmed by: Man Hdz MD 08-Jun-2019 07:39:30
== END 2019-06-07 20:39 | disposition home or self-care (01) ==
LOC: ER 16:32
DX: J45.909 Unspecified asthma, uncomplicated (principal); R06.02 Shortness of breath; J02.9 Acute pharyngitis, unspecified; R07.89 Other chest pain; R05 Cough; Z79.899 Other long term (current) drug therapy; I10 Essential (primary) hypertension; Z20.828 Contact with and (suspected) exposure to other viral communicable diseases
CPT/HCPCS: 93005; 94640; 99285; 96374; 96375; 36415; 87070; 87880; 85025; 80053; 84484; 87804; 83880; 71045; 93010; U0003; A9270 ×2; J2930; J2405; 87635; J7620

== ENCOUNTER → 2019-11-03 | Outpatient (CLI) | payer MEDICARE ==
[2019-11-03 12:35] LABS: POTASSIUM 4.5 mmol/L (3.6-5.0)
== END ==
LOC: OD 10:30
PROVIDERS: ATTEND Anesthesiology
DX: Z01.812 Encounter for preprocedural laboratory examination (principal)
CPT/HCPCS: 36415; 80051